=== PATIENT | male | born 1995 | race Caucasian/White ===

== ENCOUNTER 2018-03-04 13:54 | Emergency (ER) | payer OTHER ==
[2018-03-04] MEDS ORDERED: Adacel Vial IM ONE ×2 (14:52→14:56)
[2018-03-04] MEDS ORDERED: BACIGUENT PACKET TP ONE (14:58)
[2018-03-04] MEDS ORDERED: BACIGUENT PACKET ONE (14:58)
--- NOTE | 2018-03-04 14:59 | ERPHSYRPT ---
- History of Present Illness Time Seen by Provider: 03/04/18 14:47 Source: patient, family Exam Limitations: no limitations Patient Subjective Stated Complaint: laceration to bottom right foot Triage Nursing Assessment: to er c/o fall in shower pt states he hit bottom of foot on faucet at time of fall. pt has approx 1 inch laceration noted to bottom of foot with skin flap present. bleeding in minimal at this time Physician History: 23-year-old obese white male arrives with complaint of laceration and pain in the bottom of his right foot symptoms since 9:00 this morning. Patient states he slipped in the shower. Patient's mother states that she tried to clean the area and dress it but he continued to bleed. Patient's complaining of pain on the plantar surface of his right foot. Past medical history includes migraines, asthma, bipolar, schizoaffective disorder. Past surgical history includes cholecystectomy. Method of Injury: other (fell and hit foot on the faucet at home.) Severity of Pain-Max: moderate Severity of Pain-Current: moderate Lower Extremities Pain: foot: right (plantar surface right foot) Modifying Factors: Improves With: nothing Associated Symptoms: other (laceration and pain) Allergies/Adverse Reactions: No Known Drug Allergies Allergy (Unverified 11/15/12 19:51) Home Medications: ARIPiprazole [Aripiprazole] 20 mg PO DAILY 03/04/18 [History] Aspirin EC 325 mg [Ecotrin 325 MG] 325 mg PO DAILY 03/04/18 [History] Buspirone HCl 7.5 mg PO DAILY 03/04/18 [History] Trazodone HCl 50 mg [Desyrel 50 mg] 100 mg PO BID 03/04/18 [History] Hx Tetanus, Diphtheria Vaccination/Date Given: Yes (2009) Hx Influenza Vaccination/Date Given: No Hx Pneumococcal Vaccination/Date Given: No Immunizations Up to Date: Yes - Review of Systems Constitutional: No Fever, No Chills Eyes: No Symptoms Ears, Nose, & Throat: No Symptoms Respiratory: No Cough, No Dyspnea Cardiac: No Chest Pain, No Edema, No Syncope Abdominal/Gastrointestinal: No Abdominal Pain, No Nausea, No Vomiting, No Diarrhea Genitourinary Symptoms: No Dysuria Musculoskeletal: Injury (pain and laceration plantar surface right foot) Skin: Other (2.5 cm flap laceration right foot) Neurological: No Dizziness, No Focal Weakness, No Sensory Changes Psychological: No Symptoms Endocrine: No Symptoms All Other Systems: Reviewed and Negative - Past Medical History Pertinent Past Medical History: Yes Neurological History: Migraines Respiratory History: Asthma Psycho-Social History: Bipolar, Other Other Medical History: schitzoeffective bipolar type - Past Surgical History Gastrointestinal: Cholecystectomy - Social History Smoking Status: Never smoker Exposure to second hand smoke: No Drug Use: none Patient Lives Alone: No Significant Family History: no pertinent family hx - Nursing Vital Signs Nursing Vital Signs: Initial Vital Signs Temperature 98.0 F 03/04/18 14:00 Pulse Rate 122 H 03/04/18 14:00 Respiratory Rate 18 03/04/18 14:00 Blood Pressure 155/95 03/04/18 14:00 O2 Sat by Pulse Oximetry 98 03/04/18 14:00 Pain Scale Pain Intensity 9 - Physical Exam General Appearance: mild distress Eyes, Ears, Nose, Throat Exam: moist mucous membranes Neck Exam: non-tender, supple Cardiovascular/Respiratory Exam: chest non-tender, normal breath sounds, regular rate/rhythm, no respiratory distress Gastrointestinal/Abdominal Exam: non-tender, guarding Back Exam: normal inspection, No vertebral tenderness Hips Exam: bilateral: non-tender, normal inspection, normal range of motion, no evidence of injury Legs Exam: bilateral leg: non-tender, normal inspection, normal range of motion , no evidence of injury Knees Exam: bilateral knee: non-tender, normal inspection, normal range of motion, no evidence of injury Ankle Exam: bilateral ankle: non-tender, normal inspection, normal range of motion, no evidence of injury Foot Exam: right foot: abrasions/lacerations (2.5 cm flap laceration plantar surface right foot midfoot), bone tenderness, left foot: non-tender, normal inspection, no evidence of injury, bilateral foot: normal range of motion Neuro/Tendon Exam: normal sensation, normal motor functions Mental Status Exam: alert, oriented x 3, cooperative Skin Exam: normal color, warm, dry SpO2 Interpretation: normal (98%) SpO2: 98 Oxygen Delivery: Room Air - Course Nursing assessment & vital signs reviewed: Yes Ordered Tests: Active Orders 24 hr Category Date Time Status Crutches STAT Care 03/04/18 15:30 Active Wound Care STAT Care 03/04/18 14:52 Active FOOT (MINIMUM 3 VIEWS) Stat Exams 03/04/18 14:54 Completed Medication Summary Discontinued Medications Generic Name Dose Route Start Last Admin Trade Name Nancy PRN Reason Stop Dose Admin Bacitracin Zinc 0.9 gm 03/04/18 14:58 03/04/18 14:59 Baciguent Packet TP 03/04/18 14:59 0.9 gm STAT ONE Administration Bacitracin Zinc Confirm 03/04/18 14:58 Baciguent Packet Administered 03/04/18 14:59 Dose 1 gm .ROUTE .STK-MED ONE Diphtheria/Tetanus/Acell Pertussis 0.5 ml 03/04/18 14:52 03/04/18 14:59 Adacel Vial IM 03/04/18 14:53 0.5 ml .ONCE ONE Administration Diphtheria/Tetanus/Acell Pertussis Confirm 03/04/18 14:56 Adacel Vial Administered 03/04/18 14:57 Dose 0.5 ml IM .STK-MED ONE - Progress Progress: improved Progress Note: 03/04/18 15:25 This is a 23-year-old white male who arrives with complaint of a laceration to the plantar surface of his foot he has a 3 cm laceration which is a flap of the majority of which is a superficial flap. He does have a total of 2.5 cm laceration it is on the plantar surface of his foot. I do not feel at he will benefit from suturing in this area. Will have nurse clean the area and place surgiceal to the area. And place a dressing. Patient states he has pain when walking when he steps on the area will give patient crutches weightbearing as tolerated for a few days. Patient was offered Tylenol in the emergency room he really doesn't want any X-rays of the right foot are negative other than a heel spur. - Departure Time of Disposition: 15:28 Departure Disposition: Home Clinical Impression: Contusion of right foot Laceration of right foot Qualifiers: Encounter type: initial encounter Qualified Code(s): S91.311A - Laceration without foreign body, right foot, initial encounter Condition: Fair Critical Care Time: No Referrals: LOULOU ROBERSON [Primary Care Provider] - Additional Instructions: Return home. Clean area daily and apply bacitracin beginning tomorrow. Tylenol every 4 hours as needed for pain. Crutches weightbearing as tolerated. Follow-up with your family doctor if signs of infection or problems. Return for acute distress or for severe symptoms.
--- NOTE | 2018-03-04 15:13 | XRAY ---
Indication: Plantar laceration. Comparison: June 19, 2006. 3 nonweightbearing views of the right foot now demonstrates tiny plantar heel spur. No other bony, articular, or soft tissue abnormalities.
[2018-03-04 15:37] VITALS: BP 130/92; PULSE 88; O2SAT 97
== END 2018-03-04 15:43 | disposition home or self-care (01) ==
LOC: ED 13:54
DX: S91.311A Laceration without foreign body, right foot, initial encounter (principal); S90.31XA Contusion of right foot, initial encounter; W18.2XXA Fall in (into) shower or empty bathtub, initial encounter; Y92.002 Bathroom of unspecified non-institutional (private) residence as the place of occurrence of the external cause
CPT/HCPCS: 73630; 90471; 90715; 96372; 99284; A9270-GY

== ENCOUNTER 2018-11-22 08:27 | Emergency (ER) | payer OTHER ==
--- NOTE | 2018-11-22 09:06 | ERPHSYRPT ---
- History of Present Illness Time Seen by Provider: 11/22/18 09:01 Source: patient Exam Limitations: no limitations Patient Subjective Stated Complaint: PT STATES "MY HEAD WAS SPINNING THIS MORNING, I MADE IT DOWN. MOST OF THE STAIRS AND THEN THE NEXT THING I KNEW I WAS AT THE BOTTOM ON THE FLOOR". PT STATES HIS GRANDFATHER DROVE HIM TO HOSPITAL , PT STATES WHEN HE ENTERED BUILDING HIS HEAD STARTED TO SPIN AGAIN. PT STATES "I DON'T KNOW WHAT HAPPENED I JUST WOKE UP ON THE FLOOR AGAIN". UNKNOWN LENGTH OF DOWN TIME AT HOME. PT DENIES PAIN, C/O HEAD SPINNING. Triage Nursing Assessment: pink/warm/dry, resp easy, pt wheeled to room after being helped up off lobby floor by staff. a&o to person, place and situation at this time. no weakness noted or any obvious injuries. pt appears tired. Physician History: The patient is a 23-year-old morbidly obese male brought in by family complaining that prior to arrival as he was walking down the stairs, he had a sudden onset of the room spinning. The next thing he can remember is that he was lying flat on the stairs. He denies any pain. He denies chest pain. Denies shortness of breath. He denies headache. He is eating and drinking normally for the past few days. At times he has burning sensation when he urinates. His past medical history is significant for morbid obesity, depression, anxiety , GERD, and neuropathy. Witnessed: unwitnessed Prior Episodes: single episode today Timing/Duration: today, resolved prior to arrival, sudden Precipitating Factors: other (vertigo) Context: activity Loss of Consciousness: brief (seconds) Charcter of event(s): collapsed Allergies/Adverse Reactions: No Known Drug Allergies Allergy (Unverified 11/15/12 19:51) Home Medications: Aspirin EC 325 mg [Ecotrin 325 MG] 325 mg PO DAILY 03/04/18 [History] Buspirone HCl [Buspar] 15 mg PO TID 11/22/18 [History] Cyclobenzaprine HCl 10 mg [Cyclobenzaprine 10 MG] 10 mg PO TID 11/22/18 [ History] Gabapentin 800 mg PO TID 11/22/18 [History] Multivit-Min/FA/Lycopen/Lutein [Centrum Silver Men Tablet] 1 tab PO DAILY [History] [place]-3S/Dha/Epa/Fish Oil [[place] Power 1,050 mg Softgel] 1 cap PO DAILY [History] Omeprazole 40 mg PO DAILY 11/22/18 [History] PARoxetine HCl [Paroxetine HCl] 40 mg PO DAILY 11/22/18 [History] Trazodone HCl 300 mg PO HS 11/22/18 [History] Hx Tetanus, Diphtheria Vaccination/Date Given: No Hx Influenza Vaccination/Date Given: No Hx Pneumococcal Vaccination/Date Given: No Immunizations Up to Date: Yes - Past Medical History Pertinent Past Medical History: Yes Neurological History: Migraines ENT History: No Pertinent History Cardiac History: No Pertinent History Respiratory History: Asthma Endocrine Medical History: No Pertinent History Musculoskeletal History: No Pertinent History GI Medical History: No Pertinent History History: No Pertinent History Psycho-Social History: No Pertinent History Male Reproductive Disorders: No Pertinent History Other Medical History: occular migrains - Past Surgical History Past Surgical History: Yes Gastrointestinal: Cholecystectomy Other Surgical History: unsure what surgery was for - Social History Smoking Status: Never smoker Exposure to second hand smoke: No Drug Use: none Patient Lives Alone: Yes Significant Family History: no pertinent family hx - Review of Systems Constitutional: No Fever, No Chills Eyes: No Symptoms Ears, Nose, & Throat: No Symptoms Respiratory: No Cough, No Dyspnea Cardiac: No Chest Pain, No Edema, No Syncope Abdominal/Gastrointestinal: Nausea Genitourinary Symptoms: No Dysuria Musculoskeletal: No Back Pain, No Neck Pain Skin: No Rash Neurological: Dizziness Psychological: Anxiety, Depression Endocrine: No Symptoms Hematologic/Lymphatic: No Symptoms Immunological/Allergic: No Symptoms All Other Systems: Reviewed and Negative Physical Exam - Nursing Vital Signs Nursing Vital Signs: Initial Vital Signs Temperature 96.9 F 11/22/18 08:29 Pulse Rate 110 H 11/22/18 08:29 Respiratory Rate 16 11/22/18 08:29 Blood Pressure 128/93 11/22/18 08:29 O2 Sat by Pulse Oximetry 95 11/22/18 08:29 Pain Scale Pain Intensity 0 - Josie Coma Scale Best Eye Response ([place]): (4) open spontaneously Best Verbal Response ([place]): (5) oriented Best Motor Response ([place]): (6) obeys commands [place] Total: 15 - Physical Exam General Appearance: mild distress, obese Eye Exam: bilateral eye: normal inspection, PERRL, EOMI, other (no nystsagmus ) Ears, Nose, Throat Exam: normal ENT inspection, pharynx normal, moist mucous membranes Neck Exam: normal inspection, non-tender, supple, full range of motion Respiratory: normal breath sounds, lungs clear, No chest tenderness, No respiratory distress Cardiovascular: normal heart sounds, tachycardia Gastrointestinal: soft, No tenderness, No distention, No mass Rectal Exam: not done Back Exam: normal inspection, normal range of motion, No CVA tenderness, No vertebral tenderness Extremity Exam: normal inspection, normal range of motion, pelvis stable, No tenderness 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 Exam: normal hearing, normal speech, PERRL, No facial droop Coordination/Gait: normal finger to nose Motor/Sensory: no motor deficit, no sensory deficit, no pronator drift Skin Exam: normal color, warm, dry, No rash SpO2 Interpretation: normal SpO2: 95 O2 Delivery: Room Air - Course EKG Interpreted by Me: RATE, Sinus Tach, NORMAL AXIS, NORMAL INTERVALS, NORMAL QRS, NORMAL ST-T - Radiology Exams Chest X-ray Interpretation: Interpreted by me, Negative (neg 2V chest, comp 2V chesrt 10/10/17.) - CT Exams Head CT Interpretation: Negative, Tele-radiologist Report (per Dr Garcia), No/ Intracranial Hemorrhag Chest CT Interpretation: Discussed w/radiologist (discussed findings with Dr Garcia), Other (Findings highly suggestive for acute pulmonary embolism in segnebtak branches of LLL. Recommends VQ scan.) Ordered Tests: Active Orders 24 hr Category Date Time Status Agriculture Laboratory Technician STAT Care 11/22/18 09:08 Active Clean Catch Urine Specimen STAT Care 11/22/18 09:07 Active EKG-ER Only STAT Care 11/22/18 09:07 Active IV Insertion STAT Care 11/22/18 09:07 Active Orthostatic Vital Signs STAT Care 11/22/18 09:07 Active CHEST 2 VIEWS (PA AND LAT) Stat Exams 11/22/18 09:09 Taken CHEST WITH CONTRAST [CT] Stat Exams 11/22/18 10:11 Taken HEAD WITHOUT CONTRAST [CT] Stat Exams 11/22/18 09:08 Taken CBC W DIFF Stat Lab 11/22/18 09:07 Completed CMP Stat Lab 11/22/18 09:07 Completed D-DIMER QUANTITATION Stat Lab 11/22/18 09:07 Completed ETHYL ALCOHOL Stat Lab 11/22/18 09:07 Completed PROTIME WITH INR Stat Lab 11/22/18 09:07 Completed TROPONIN Q3H Lab 11/22/18 09:15 Completed TROPONIN Q3H Lab 11/22/18 12:16 Completed TROPONIN Q3H Lab 11/22/18 15:15 Ordered TROPONIN Q3H Lab 11/22/18 18:15 Ordered TROPONIN Q3H Lab 11/22/18 21:15 Ordered UA W/RFX UR CULTURE Stat Lab 11/22/18 10:25 Completed Urine Triage Profile Stat Lab 11/22/18 10:25 Completed Medication Summary Discontinued Medications Generic Name Dose Route Start Last Admin Trade Name Freq PRN Reason Stop Dose Admin Sodium Chloride 1,000 mls @ 999 mls/hr 11/22/18 09:07 11/22/18 09:17 Sodium Chloride 0.9% 1000 Ml IV 11/22/18 10:07 999 mls/hr .Q1H1M STA Administration Sodium Chloride Confirm 11/22/18 09:14 Sodium Chloride 0.9% 1000 Ml Administered 11/22/18 09:15 Dose 1,000 mls @ ud .ROUTE .STK-MED ONE Ondansetron HCl 4 mg 11/22/18 09:09 11/22/18 09:18 Zofran 4 Mg/2 Ml Vial IV 11/22/18 09:10 4 mg STAT ONE Administration Ondansetron HCl Confirm 11/22/18 09:14 Zofran 4 Mg/2 Ml Vial Administered 11/22/18 09:15 Dose 4 mg .ROUTE .STK-MED ONE Lab/Rad Data: Laboratory Result Diagrams 11/22/18 09:07 11/22/18 09:07 Laboratory Results 11/22/18 11/22/18 11/22/18 Range/Units 12:16 10:25 10:25 WBC (4.0-10.5) K/mm3 RBC (4.1-5.6) M/mm3 Hgb (12.5-18.0) gm/dl Hct (42-50) % MCV (78-100) fl MCH (26-32) pg MCHC (32-36) g/dl RDW (11.5-14.0) % Plt Count (150-450) K/mm3 MPV (6-9.5) fl Gran % (36.0-66.0) % Eos # (Auto) (0-0.5) Absolute Lymphs (auto) (1.0-4.6) Absolute Monos (auto) (0.0-1.3) Lymphocytes % (24.0-44.0) % Monocytes % (0.0-12.0) % Eosinophils % (0.00-5.0) % Basophils % (0.0-0.4) % Absolute Granulocytes (1.4-6.9) Basophils # (0-0.4) PT (8.83-12.87) SECONDS INR (0.8-3.0) D-Dimer (215-500) ng/mL Sodium (137-145) mmol/L Potassium (3.5-5.1) mmol/L Chloride (98-107) mmol/L Carbon Dioxide (22-30) mmol/L Anion Gap (5-15) MEQ/L BUN (9-20) mg/dL Creatinine (0.66-1.25) mg/dL Estimated GFR ML/MIN Glucose (74-106) mg/dL Calcium (8.4-10.2) mg/dL Total Bilirubin (0.2-1.3) mg/dL AST (17-59) U/L ALT (0-50) U/L Alkaline Phosphatase (38-126) U/L Troponin I < 0.012 (0.000-0.034) ng/mL Serum Total Protein (6.3-8.2) g/dL Albumin (3.5-5.0) g/dL Urine Color YELLOW (YELLOW) Urine Appearance SLIGHTLY CLOUDY (CLEAR) Urine pH 5.0 (5-6) Ur Specific [place] 1.031 (1.005-1.025) Urine Protein NEGATIVE (Negative) Urine Ketones TRACE (NEGATIVE) Urine Blood NEGATIVE (0-5) Natanael/ul Urine Nitrite NEGATIVE (NEGATIVE) Urine Bilirubin NEGATIVE (NEGATIVE) Urine Urobilinogen 2 (0-1) mg/dL Ur Leukocyte Esterase NEGATIVE (NEGATIVE) Urine WBC (Auto) 3-5 (0-5) /HPF Urine RBC (Auto) NONE SEEN (0-2) /HPF U Hyaline Cast (Auto) 3-5 (0-2) /LPF U Epithel Cells (Auto) NONE (FEW) /HPF Urine Bacteria (Auto) RARE (NEGATIVE) /HPF Urine Mucus (Auto) MODERATE (NEGATIVE) /HPF Urine Culture Reflexed NO (NO) Urine Glucose NEGATIVE (NEGATIVE) mg/dL Urine Opiates Level NEGATIVE (NEGATIVE) Ur Methadone NEGATIVE (NEGATIVE) Urine Barbiturates NEGATIVE (NEGATIVE) Ur Phencyclidine (PCP) NEGATIVE (NEGATIVE) Urine Amphetamine NEGATIVE (NEGATIVE) U Benzodiazepine Level NEGATIVE (NEGATIVE) Urine Cocaine NEGATIVE (NEGATIVE) Urine Marijuana (THC) NEGATIVE (NEGATIVE) Ethyl Alcohol (0-10) mg/dL 11/22/18 11/22/18 11/22/18 Range/Units 09:15 09:07 09:07 WBC (4.0-10.5) K/mm3 RBC (4.1-5.6) M/mm3 Hgb (12.5-18.0) gm/dl Hct (42-50) % MCV (78-100) fl MCH (26-32) pg MCHC (32-36) g/dl RDW (11.5-14.0) % Plt Count (150-450) K/mm3 MPV (6-9.5) fl Gran % (36.0-66.0) % Eos # (Auto) (0-0.5) Absolute Lymphs (auto) (1.0-4.6) Absolute Monos (auto) (0.0-1.3) Lymphocytes % (24.0-44.0) % Monocytes % (0.0-12.0) % Eosinophils % (0.00-5.0) % Basophils % (0.0-0.4) % Absolute Granulocytes (1.4-6.9) Basophils # (0-0.4) PT 11.5 (8.83-12.87) SECONDS INR 0.99 (0.8-3.0) D-Dimer 789 H* (215-500) ng/mL Sodium 139 (137-145) mmol/L Potassium 4.5 (3.5-5.1) mmol/L Chloride 104 (98-107) mmol/L Carbon Dioxide 22 (22-30) mmol/L Anion Gap 16.8 H (5-15) MEQ/L BUN 14 (9-20) mg/dL Creatinine 1.08 (0.66-1.25) mg/dL Estimated GFR > 60.0 ML/MIN Glucose 107 H (74-106) mg/dL Calcium 9.9 (8.4-10.2) mg/dL Total Bilirubin 0.50 (0.2-1.3) mg/dL AST 40 (17-59) U/L ALT 52 H (0-50) U/L Alkaline Phosphatase 91 (38-126) U/L Troponin I < 0.012 (0.000-0.034) ng/mL Serum Total Protein 7.5 (6.3-8.2) g/dL Albumin 4.4 (3.5-5.0) g/dL Urine Color (YELLOW) Urine Appearance (CLEAR) Urine pH (5-6) Ur Specific [place] (1.005-1.025) Urine Protein (Negative) Urine Ketones (NEGATIVE) Urine Blood (0-5) Natanael/ul Urine Nitrite (NEGATIVE) Urine Bilirubin (NEGATIVE) Urine Urobilinogen (0-1) mg/dL Ur Leukocyte Esterase (NEGATIVE) Urine WBC (Auto) (0-5) /HPF Urine RBC (Auto) (0-2) /HPF U Hyaline Cast (Auto) (0-2) /LPF U Epithel Cells (Auto) (FEW) /HPF Urine Bacteria (Auto) (NEGATIVE) /HPF Urine Mucus (Auto) (NEGATIVE) /HPF Urine Culture Reflexed (NO) Urine Glucose (NEGATIVE) mg/dL Urine Opiates Level (NEGATIVE) Ur Methadone (NEGATIVE) Urine Barbiturates (NEGATIVE) Ur Phencyclidine (PCP) (NEGATIVE) Urine Amphetamine (NEGATIVE) U Benzodiazepine Level (NEGATIVE) Urine Cocaine (NEGATIVE) Urine Marijuana (THC) (NEGATIVE) Ethyl Alcohol < 10 (0-10) mg/dL 11/22/18 Range/Units 09:07 WBC 12.8 H (4.0-10.5) K/mm3 RBC 5.69 H (4.1-5.6) M/mm3 Hgb 16.4 (12.5-18.0) gm/dl Hct 48.8 (42-50) % MCV 85.8 (78-100) fl MCH 28.8 (26-32) pg MCHC 33.6 (32-36) g/dl RDW 13.4 (11.5-14.0) % Plt Count 322 (150-450) K/mm3 MPV 11.3 H (6-9.5) fl Gran % 64.7 (36.0-66.0) % Eos # (Auto) 0.26 (0-0.5) Absolute Lymphs (auto) 3.07 (1.0-4.6) Absolute Monos (auto) 1.16 (0.0-1.3) Lymphocytes % 24.0 (24.0-44.0) % Monocytes % 9.1 (0.0-12.0) % Eosinophils % 2.0 (0.00-5.0) % Basophils % 0.2 (0.0-0.4) % Absolute Granulocytes 8.27 H (1.4-6.9) Basophils # 0.02 (0-0.4) PT (8.83-12.87) SECONDS INR (0.8-3.0) D-Dimer (215-500) ng/mL Sodium (137-145) mmol/L Potassium (3.5-5.1) mmol/L Chloride (98-107) mmol/L Carbon Dioxide (22-30) mmol/L Anion Gap (5-15) MEQ/L BUN (9-20) mg/dL Creatinine (0.66-1.25) mg/dL Estimated GFR ML/MIN Glucose (74-106) mg/dL Calcium (8.4-10.2) mg/dL Total Bilirubin (0.2-1.3) mg/dL AST (17-59) U/L ALT (0-50) U/L Alkaline Phosphatase (38-126) U/L Troponin I (0.000-0.034) ng/mL Serum Total Protein (6.3-8.2) g/dL Albumin (3.5-5.0) g/dL Urine Color (YELLOW) Urine Appearance (CLEAR) Urine pH (5-6) Ur Specific [place] (1.005-1.025) Urine Protein (Negative) Urine Ketones (NEGATIVE) Urine Blood (0-5) Natanael/ul Urine Nitrite (NEGATIVE) Urine Bilirubin (NEGATIVE) Urine Urobilinogen (0-1) mg/dL Ur Leukocyte Esterase (NEGATIVE) Urine WBC (Auto) (0-5) /HPF Urine RBC (Auto) (0-2) /HPF U Hyaline Cast (Auto) (0-2) /LPF U Epithel Cells (Auto) (FEW) /HPF Urine Bacteria (Auto) (NEGATIVE) /HPF Urine Mucus (Auto) (NEGATIVE) /HPF Urine Culture Reflexed (NO) Urine Glucose (NEGATIVE) mg/dL Urine Opiates Level (NEGATIVE) Ur Methadone (NEGATIVE) Urine Barbiturates (NEGATIVE) Ur Phencyclidine (PCP) (NEGATIVE) Urine Amphetamine (NEGATIVE) U Benzodiazepine Level (NEGATIVE) Urine Cocaine (NEGATIVE) Urine Marijuana (THC) (NEGATIVE) Ethyl Alcohol (0-10) mg/dL - Progress Progress Note: 11/22/18 10:52 Orthostats: lying pulse was 98 and BP was 144/100 standing pulse was 124 and BP was 119/70. 11/22/18 13:[address] Phan who recommends transfer to [facility]. Mom and pt agree. 11/22/18 13:59 pt discussed and accepted by Dr Cm at [facility]. Discussed with .: Emilie Counseled pt/family regarding: lab results, diagnosis, rad results - Departure Time of Disposition: 13:21 Departure Disposition: Transfer (transfer to [facility] ER per Dr Cm) Clinical Impression: Syncope and collapse, Elevated d-dimer Condition: Stable Critical Care Time: No Referrals: LOULOU ROBERSON [Primary Care Provider] -
[2018-11-22] MEDS ORDERED: Sodium Chloride 0.9% 1000 ML 1,000 ML IV STA (09:07)
[2018-11-22] MEDS ORDERED: Zofran 4 MG/2 ML VIAL IV ONE (09:09)
[2018-11-22] MEDS ORDERED: Zofran 4 MG/2 ML VIAL ONE (09:14)
[2018-11-22] MEDS ORDERED: Sodium Chloride 0.9% 1000 ML 1,000 ML ONE (09:14)
[2018-11-22 09:16] LABS: BASOPHIL % 0.2 % (0.0-0.4); Basophil (Absolute #) 0.02 (0-0.4); Eosinophil (Absolute #) 0.26 (0-0.5); Granulocyte Absolute (ANC) 8.27 (1.4-6.9); Granulocytes % 64.7 % (36.0-66.0); Hematocrit 48.8 % (42-50); Hemoglobin 16.4 gm/dl (12.5-18.0); Lymphocyte (Absolute #) 3.07 (1.0-4.6); Mean Cell Volume 85.8 fl (78-100); Mean Corpuscular Hemoglobin 28.8 pg (26-32); Mean Corpuscular Hgb Concent. 33.6 g/dl (32-36); Mean Platelet Volume 11.3 fl (6-9.5); Monocyte (Absolute #) 1.16 (0.0-1.3); Monocytes % 9.1 % (0.0-12.0); Platelet Count 322 K/mm3 (150-450); Red Blood Count 5.69 M/mm3 (4.1-5.6); Red Cell Distribution Width 13.4 % (11.5-14.0); White Blood Count 12.8 K/mm3 (4.0-10.5)
[2018-11-22 09:34] LABS: INR 0.99 (0.8-3.0); PROTIME 11.5 SECONDS (8.83-12.87)
[2018-11-22 09:36] LABS: ALBUMIN 4.4 g/dL (3.5-5.0); ALKALINE PHOSPHATASE 91 U/L (38-126); ANION GAP 16.8 MEQ/L (5-15); BLOOD UREA NITROGEN 14 mg/dL (9-20); CHLORIDE 104 mmol/L (98-107); Calcium 9.9 mg/dL (8.4-10.2); Carbon Dioxide 22 mmol/L (22-30); Creatinine 1 1.08 mg/dL (0.66-1.25); ETHYL ALCOHOL < 10 mg/dL (0-10); Glucose 107 mg/dL (74-106); Potassium 4.5 mmol/L (3.5-5.1); SGOT/AST 40 U/L (17-59); SGPT/ALT 52 U/L (0-50); SODIUM 139 mmol/L (137-145); Total Protein 7.5 g/dL (6.3-8.2)
[2018-11-22 10:50] LABS: Amphetamine,Urine NEGATIVE (NEGATIVE); Barbiturate,Urine NEGATIVE (NEGATIVE); Benzodiazepine,Urine NEGATIVE (NEGATIVE); Cocaine,Urine NEGATIVE (NEGATIVE); Methadone,Urine NEGATIVE (NEGATIVE); Opiate,Urine NEGATIVE (NEGATIVE); PCP,Urine NEGATIVE (NEGATIVE); THC,Urine NEGATIVE (NEGATIVE)
[2018-11-22 11:10] LABS: Appearance SLIGHTLY CLOUDY (CLEAR); Bacteria RARE /HPF (NEGATIVE); Bilirubin NEGATIVE (NEGATIVE); Blood NEGATIVE Ery/ul (0-5); Glucose NEGATIVE (NEGATIVE); Ketones TRACE (NEGATIVE); Leukocyte Esterase NEGATIVE (NEGATIVE); Mucus MODERATE /HPF (NEGATIVE); Nitrite NEGATIVE (NEGATIVE); Protein,Urine Dip NEGATIVE (Negative); Specific Gravity 1.031 (1.005-1.025); Urobilinogen 2 mg/dL (0-1)
[2018-11-22 11:11] LABS: RBC NONE SEEN /HPF (0-2)
[2018-11-22] MEDS ORDERED: ENOXAPARIN SODIUM SQ STA (13:45)
[2018-11-22] MEDS ORDERED: ENOXAPARIN SODIUM SQ ONE ×2 (14:18→14:21)
[2018-11-22 15:10] VITALS: O2SAT 94
[2018-11-22 15:45] VITALS: BP 119/74; PULSE 86
--- NOTE | 2018-11-23 00:21 | XRAY ---
Indication: Syncope. Comparison: October 10, 2017. PA/lateral chest again demonstrates normal heart and lungs. Bony thorax intact. No new/acute findings.
--- NOTE | 2018-11-23 00:21 | XRAY ---
Indication: Elevated d-dimer. Multiple contiguous axial images obtained through the chest using 100 cc Isovue 370 contrast and PE protocol. Comparison: None There is satisfactory opacification of the pulmonary arteries. However respiration artifact limits evaluation of the lobar and segmental branches. Query left lower lobe segmental pulmonary emboli versus respiration artifact. No central pulmonary embolus. Heart is not enlarged. Aorta is normal in course and caliber. No pathologic mediastinal/hilar lymphadenopathy. Lungs are inflated and grossly clear. Bony thorax intact. Limited upper abdomen demonstrates mild diffuse fatty liver, cholecystectomy, and 15 cm splenomegaly. Impression: 1. Pulmonary embolus evaluation limited by respiration artifact. Query left lower lobe segmental pulmonary emboli versus respiration artifact. 2. Incidental fatty liver and splenomegaly. Comment: Preliminary interpretation was made by [facility]. No critical discrepancy. CTDI 41.26
--- NOTE | 2018-11-23 00:24 | XRAY ---
Indication: Syncope. Multiple contiguous axial images obtained through the head without contrast. Comparison: None Normal appearing brain parenchyma, ventricles, and bony calvarium. Visualized paranasal sinuses and mastoid air cells are clear. Impression: Normal CT head without contrast exam. Comment: Preliminary interpretation was made by [facility]. No discrepancy. CTDI 66.37
== END 2018-11-22 15:38 | disposition short-term general hospital (02) ==
LOC: ED 08:27
DX: R55 Syncope and collapse (principal); R79.89 Other specified abnormal findings of blood chemistry; F41.8 Other specified anxiety disorders; K21.9 Gastro-esophageal reflux disease without esophagitis; G62.9 Polyneuropathy, unspecified; J45.909 Unspecified asthma, uncomplicated
CPT/HCPCS: 36000; 36415; 70450; 71046; 71260; 80053; 80307; 81001; 84484; 85025; 85379; 85610; 93005; 93041; 96360; 96372; 96374; 99285; G0480; J1650; J2405

== ENCOUNTER 2018-11-27 11:35 | Emergency (ER) | payer OTHER ==
--- NOTE | 2018-11-27 11:39 | ERPHSYRPT ---
- History of Present Illness Time Seen by Provider: 11/27/18 11:38 Historian: patient Exam Limitations: no limitations Physician History: 23 y/o morbidly obese white male presents with cp that began at 0230 this am. he has had an associated cough as well. pt seen here for syncope on 11/22/18. work up revealed at that time an elevated d dimer and a ct chest performed here and was inconclusive with a suspicious finding left lower lobe. he was transferred to [facility]. he underwent a vq scan which read low probability and pt sent home. pt did not have cp, soa or cough at last ED visit. pt has no leg pain. pt is not soa. cp is nonradiating and is substernal. Timing/Duration: today Activities at Onset: none Quality: sharpness Location: substernal Chest Pain Radiation: no radiation Severity of Pain-Max: mild Severity of Pain-Current: mild Modifying Factors: Improves With: coughing Associated Symptoms: cough, No nausea, No vomiting, No shortness of breath, No hurts to breathe, No syncope, No headache Prior Chest Pain/Cardiac Workup: recently seen/treated Nitro Today/Relief: no nitro taken today Aspirin Treatment Today: 81 mg x 4, provided by ED Allergies/Adverse Reactions: No Known Drug Allergies Allergy (Verified 11/27/18 11:48) Home Medications: Aspirin EC 325 mg [Ecotrin 325 MG] 325 mg PO DAILY 03/04/18 [History] Buspirone HCl [Buspar] 15 mg PO TID 11/22/18 [History] Cyclobenzaprine HCl 10 mg [Cyclobenzaprine 10 MG] 10 mg PO TID 11/22/18 [ History] Gabapentin 800 mg PO TID 11/22/18 [History] Multivit-Min/FA/Lycopen/Lutein [Centrum Silver Men Tablet] 1 tab PO DAILY [History] Elsah-3S/Dha/Epa/Fish Oil [Elsah Power 1,050 mg Softgel] 1 cap PO DAILY [History] Omeprazole 40 mg PO DAILY 11/22/18 [History] PARoxetine HCl [Paroxetine HCl] 40 mg PO DAILY 11/22/18 [History] Trazodone HCl 300 mg PO HS 11/22/18 [History] Hx Tetanus, Diphtheria Vaccination/Date Given: No Hx Influenza Vaccination/Date Given: No Hx Pneumococcal Vaccination/Date Given: No - Review of Systems Constitutional: No Symptoms Eyes: No Symptoms Ears, Nose, & Throat: No Symptoms Respiratory: Cough, No Dyspnea, No Stridor, No Wheezing Cardiac: Chest Pain, No Palpitations, No Syncope Abdominal/Gastrointestinal: No Symptoms, No Abdominal Pain, No Nausea, No Vomiting, No Diarrhea Genitourinary Symptoms: No Symptoms, No Dysuria, No Frequency, No Hematuria Musculoskeletal: No Symptoms Skin: No Symptoms Neurological: No Symptoms, No Dizziness, No Headache Psychological: No Symptoms Endocrine: No Symptoms Hematologic/Lymphatic: No Symptoms Immunological/Allergic: No Symptoms All Other Systems: Reviewed and Negative - Past Medical History Pertinent Past Medical History: Yes Neurological History: Migraines ENT History: No Pertinent History Cardiac History: No Pertinent History Respiratory History: Asthma Endocrine Medical History: No Pertinent History Musculoskeletal History: No Pertinent History GI Medical History: No Pertinent History History: No Pertinent History Psycho-Social History: No Pertinent History Male Reproductive Disorders: No Pertinent History Other Medical History: occular migrains - Past Surgical History Past Surgical History: Yes Gastrointestinal: Cholecystectomy Other Surgical History: unsure what surgery was for - Social History Smoking Status: Never smoker Exposure to second hand smoke: No Drug Use: none Patient Lives Alone: Yes Significant Family History: no pertinent family hx - Nursing Vital Signs Nursing Vital Signs: Initial Vital Signs Temperature 97.7 F 11/27/18 11:36 Pulse Rate 90 11/27/18 11:36 Respiratory Rate 16 11/27/18 11:36 Blood Pressure 114/84 11/27/18 11:36 O2 Sat by Pulse Oximetry 95 11/27/18 11:36 Pain Scale Pain Intensity 8 - Physical Exam General Appearance: no apparent distress, alert, anxiety Eye Exam: PERRL/EOMI Ears, Nose, Throat Exam: normal ENT inspection, moist mucous membranes Neck Exam: normal inspection, non-tender, supple, full range of motion Respiratory Exam: normal breath sounds, chest tenderness (mild), lungs clear, airway intact, No respiratory distress, No accessory muscle use, No rhonchi, No wheezing, No stridor Cardiovascular Exam: regular rate/rhythm, normal heart sounds, normal peripheral pulses Gastrointestinal/Abdomen Exam: soft, normal bowel sounds, No tenderness, No guarding Rectal Exam: not done Back Exam: normal inspection, normal range of motion, No CVA tenderness, No vertebral tenderness Extremity Exam: normal inspection, normal range of motion, pelvis stable Neurologic Exam: alert, oriented x 3, cooperative, 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 Apprentice STAT Care 11/27/18 11:53 Active EKG-ER Only STAT Care 11/27/18 11:53 Active IV Insertion STAT Care 11/27/18 11:53 Active Pulse Oximetry (ED) STAT Care 11/27/18 11:53 Active Re-Check Vital Signs STAT Care 11/27/18 11:53 Active CBC W DIFF Stat Lab 11/27/18 11:53 Completed CMP Stat Lab 11/27/18 12:09 Completed D-DIMER QUANTITATION Stat Lab 11/27/18 12:09 Completed NT PRO BNP Stat Lab 11/27/18 12:09 Completed TROPONIN Q3H Lab 11/27/18 12:09 Completed TROPONIN Q3H Lab 11/27/18 15:00 Ordered TROPONIN Q3H Lab 11/27/18 18:00 Ordered TROPONIN Q3H Lab 11/27/18 21:00 Ordered TROPONIN Q3H Lab 11/28/18 00:00 Ordered Medication Summary Discontinued Medications Generic Name Dose Route Start Last Admin Trade Name Freq PRN Reason Stop Dose Admin Aspirin 324 mg 11/27/18 12:43 Baby Aspirin 81 Mg Chew PO 11/27/18 12:44 STAT ONE Lab/Rad Data: Laboratory Result Diagrams 11/27/18 11:53 11/27/18 12:09 Laboratory Results 11/27/18 11/27/18 11/27/18 Range/Units 12:09 12:09 12:09 WBC (4.0-10.5) K/mm3 RBC (4.1-5.6) M/mm3 Hgb (12.5-18.0) gm/dl Hct (42-50) % MCV (78-100) fl MCH (26-32) pg MCHC (32-36) g/dl RDW (11.5-14.0) % Plt Count (150-450) K/mm3 MPV (6-9.5) fl Gran % (36.0-66.0) % Eos # (Auto) (0-0.5) Absolute Lymphs (auto) (1.0-4.6) Absolute Monos (auto) (0.0-1.3) Lymphocytes % (24.0-44.0) % Monocytes % (0.0-12.0) % Eosinophils % (0.00-5.0) % Basophils % (0.0-0.4) % Absolute Granulocytes (1.4-6.9) Basophils # (0-0.4) D-Dimer 599 H* (215-500) ng/mL Sodium 138 (137-145) mmol/L Potassium 4.3 (3.5-5.1) mmol/L Chloride 104 (98-107) mmol/L Carbon Dioxide 25 (22-30) mmol/L Anion Gap 13.6 (5-15) MEQ/L BUN 16 (9-20) mg/dL Creatinine 0.81 (0.66-1.25) mg/dL Estimated GFR > 60.0 ML/MIN Glucose 101 (74-106) mg/dL Calcium 9.2 (8.4-10.2) mg/dL Total Bilirubin 0.40 (0.2-1.3) mg/dL AST 32 (17-59) U/L ALT 42 (0-50) U/L Alkaline Phosphatase 81 (38-126) U/L Troponin I < 0.012 (0.000-0.034) ng/mL NT-Pro-B Natriuret Pep 26.9 (0-450) pg/mL Serum Total Protein 7.2 (6.3-8.2) g/dL Albumin 4.1 (3.5-5.0) g/dL 11/27/18 Range/Units 11:53 WBC 7.7 (4.0-10.5) K/mm3 RBC 5.26 (4.1-5.6) M/mm3 Hgb 15.1 (12.5-18.0) gm/dl Hct 45.4 (42-50) % MCV 86.3 (78-100) fl MCH 28.7 (26-32) pg MCHC 33.3 (32-36) g/dl RDW 13.3 (11.5-14.0) % Plt Count 264 (150-450) K/mm3 MPV 10.8 H (6-9.5) fl Gran % 51.8 (36.0-66.0) % Eos # (Auto) 0.42 (0-0.5) Absolute Lymphs (auto) 2.65 (1.0-4.6) Absolute Monos (auto) 0.61 (0.0-1.3) Lymphocytes % 34.4 (24.0-44.0) % Monocytes % 7.9 (0.0-12.0) % Eosinophils % 5.4 H (0.00-5.0) % Basophils % 0.5 (0.0-0.4) % Absolute Granulocytes 3.99 (1.4-6.9) Basophils # 0.04 (0-0.4) D-Dimer (215-500) ng/mL Sodium (137-145) mmol/L Potassium (3.5-5.1) mmol/L Chloride (98-107) mmol/L Carbon Dioxide (22-30) mmol/L Anion Gap (5-15) MEQ/L BUN (9-20) mg/dL Creatinine (0.66-1.25) mg/dL Estimated GFR ML/MIN Glucose (74-106) mg/dL Calcium (8.4-10.2) mg/dL Total Bilirubin (0.2-1.3) mg/dL AST (17-59) U/L ALT (0-50) U/L Alkaline Phosphatase (38-126) U/L Troponin I (0.000-0.034) ng/mL NT-Pro-B Natriuret Pep (0-450) pg/mL Serum Total Protein (6.3-8.2) g/dL Albumin (3.5-5.0) g/dL - Progress Progress: improved Air Movement: good Progress Note: 11/27/18 12:49 pt resting comfortably. i have opted not to obtain ct scan on pts chest since the d dimer only mildly elevated and pt just completed a negative work up for pulmonary embolism. pt and father are aware and agree not necessary at this time Blood Culture(s) Obtained: No Antibiotics given: No Counseled pt/family regarding: lab results, diagnosis, need for follow-up, rad results - Departure Time of Disposition: 12:53 Departure Disposition: Home Clinical Impression: Chest pain Condition: Stable Critical Care Time: No Referrals: LOULOU ROBERSON [Primary Care Provider] - Additional Instructions: take your medications as prescribed. follow up with primary doctor TODAY to arrange for follow up appointment
[2018-11-27 12:14] LABS: BASOPHIL % 0.5 % (0.0-0.4); Basophil (Absolute #) 0.04 (0-0.4); Eosinophil % 5.4 % (0.00-5.0); Eosinophil (Absolute #) 0.42 (0-0.5); Granulocyte Absolute (ANC) 3.99 (1.4-6.9); Granulocytes % 51.8 % (36.0-66.0); Hematocrit 45.4 % (42-50); Hemoglobin 15.1 gm/dl (12.5-18.0); Lymphocyte (Absolute #) 2.65 (1.0-4.6); Lymphocytes % 34.4 % (24.0-44.0); Mean Cell Volume 86.3 fl (78-100); Mean Corpuscular Hemoglobin 28.7 pg (26-32); Mean Corpuscular Hgb Concent. 33.3 g/dl (32-36); Mean Platelet Volume 10.8 fl (6-9.5); Monocyte (Absolute #) 0.61 (0.0-1.3); Monocytes % 7.9 % (0.0-12.0); Platelet Count 264 K/mm3 (150-450); Red Blood Count 5.26 M/mm3 (4.1-5.6); Red Cell Distribution Width 13.3 % (11.5-14.0); White Blood Count 7.7 K/mm3 (4.0-10.5)
[2018-11-27 12:30] LABS: ALBUMIN 4.1 g/dL (3.5-5.0); ALKALINE PHOSPHATASE 81 U/L (38-126); ANION GAP 13.6 MEQ/L (5-15); BLOOD UREA NITROGEN 16 mg/dL (9-20); CHLORIDE 104 mmol/L (98-107); Calcium 9.2 mg/dL (8.4-10.2); Carbon Dioxide 25 mmol/L (22-30); Creatinine 1 0.81 mg/dL (0.66-1.25); Glucose 101 mg/dL (74-106); NT PRO BNP 26.9 pg/mL (0-450); Potassium 4.3 mmol/L (3.5-5.1); SGOT/AST 32 U/L (17-59); SGPT/ALT 42 U/L (0-50); SODIUM 138 mmol/L (137-145); Total Protein 7.2 g/dL (6.3-8.2)
[2018-11-27] MEDS ORDERED: BABY ASPIRIN 81 MG CHEW PO ONE (12:43)
[2018-11-27] MEDS ORDERED: BABY ASPIRIN 81 MG CHEW ONE (12:59)
[2018-11-27 13:21] VITALS: BP 126/86; PULSE 92; O2SAT 95
== END 2018-11-27 13:25 | disposition home or self-care (01) ==
LOC: ED 11:35
DX: R07.9 Chest pain, unspecified (principal); J45.909 Unspecified asthma, uncomplicated
CPT/HCPCS: 36000; 36415; 80053; 83880; 84484; 85025; 85379; 93005; 93041; 99284; A9270-GY

== ENCOUNTER 2019-07-15 11:14 | Emergency (ER) | payer OTHER ==
--- NOTE | 2019-07-15 11:25 | ERPHSYRPT ---
- History of Present Illness Time Seen by Provider: 07/15/19 11:25 Historian: patient, family Exam Limitations: no limitations Physician History: 24 y/o morbidly obese white male who wears a cpap machine at night presents with dizziness, exhaustion and left ant dull cp with radiation into left shoulder this am. pt states almost every morning including this morning the cpap mask was not on him. pt denies abd pain. he denies new meds, he denies n/v/ d, he denies blood loss. pt states he took asa 325mg this am Timing/Duration: today, other (not resolved. ) Activities at Onset: none Quality: aching Location: other (left ant chest) Chest Pain Radiation: arm (left) Severity of Pain-Max: mild Severity of Pain-Current: mild Associated Symptoms: dizziness Prior Chest Pain/Cardiac Workup: no prior chest pain Nitro Today/Relief: no nitro taken today Aspirin Treatment Today: 325 mg x 1, provided at home Allergies/Adverse Reactions: No Known Drug Allergies Allergy (Verified 07/15/19 11:53) Home Medications: Aspirin EC 325 mg [Ecotrin 325 MG] 325 mg PO DAILY 03/04/18 [History] Buspirone HCl [Buspar] 15 mg PO TID 11/22/18 [History] Cyclobenzaprine HCl 10 mg [Cyclobenzaprine 10 MG] 10 mg PO TID 11/22/18 [ History] Gabapentin 800 mg PO TID 11/22/18 [History] Multivit-Min/FA/Lycopen/Lutein [Centrum Silver Men Tablet] 1 tab PO DAILY [History] Scalf-3S/Dha/Epa/Fish Oil [Scalf Power 1,050 mg Softgel] 1 cap PO DAILY [History] Omeprazole 40 mg PO DAILY 11/22/18 [History] PARoxetine HCl [Paroxetine HCl] 40 mg PO DAILY 11/22/18 [History] Trazodone HCl 300 mg PO HS 11/22/18 [History] Albuterol 17 gm .ROUTE Q4H PRN PRN 07/15/19 [History] Albuterol 2.5 mg/3 ml Neb [Proventil 2.5 mg/3 ml Neb] 2.5 mg NEB DAILY PRN PRN 07/15/19 [History] Aripiprazole [Abilify] 20 mg PO HS 07/15/19 [History] Aspirin EC 325 mg [Ecotrin 325 MG] 325 mg PO DAILY 07/15/19 [History] Buspirone HCl [Buspar] 15 mg PO TID 07/15/19 [History] Gabapentin 600 mg PO TID 07/15/19 [History] Omeprazole 40 mg PO DAILY 07/15/19 [History] Paroxetine HCl [Paxil] 40 mg PO DAILY 07/15/19 [History] Trazodone HCl 300 mg PO HS 07/15/19 [History] - Review of Systems Constitutional: Weakness Eyes: No Symptoms Ears, Nose, & Throat: No Symptoms Respiratory: No Symptoms Cardiac: Chest Pain Abdominal/Gastrointestinal: No Symptoms Genitourinary Symptoms: No Symptoms Musculoskeletal: No Symptoms Skin: No Symptoms Neurological: No Symptoms Psychological: No Symptoms Endocrine: No Symptoms Hematologic/Lymphatic: No Symptoms Immunological/Allergic: No Symptoms All Other Systems: Reviewed and Negative - Past Medical History Neurological History: No Pertinent History ENT History: No Pertinent History Cardiac History: No Pertinent History Respiratory History: No Pertinent History Endocrine Medical History: No Pertinent History Musculoskeletal History: No Pertinent History GI Medical History: No Pertinent History History: No Pertinent History Psycho-Social History: No Pertinent History Male Reproductive Disorders: No Pertinent History - Nursing Vital Signs Nursing Vital Signs: Initial Vital Signs Temperature 99.3 F 07/15/19 11:19 Pulse Rate 88 07/15/19 11:19 Respiratory Rate 12 07/15/19 11:19 Blood Pressure 118/79 07/15/19 11:19 O2 Sat by Pulse Oximetry 96 07/15/19 11:19 Pain Scale Pain Intensity 8 - Physical Exam General Appearance: no apparent distress, alert, anxiety, obese Eye Exam: PERRL/EOMI, eyes nml inspection Ears, Nose, Throat Exam: normal ENT inspection, moist mucous membranes Neck Exam: normal inspection, non-tender, supple, full range of motion Respiratory Exam: normal breath sounds, chest tenderness, lungs clear, airway intact, No respiratory distress Cardiovascular Exam: regular rate/rhythm, normal heart sounds, normal peripheral pulses Gastrointestinal/Abdomen Exam: soft, normal bowel sounds, No tenderness Rectal Exam: not done Back Exam: normal inspection, normal range of motion, No CVA tenderness, No vertebral tenderness Extremity Exam: normal inspection, normal range of motion, pelvis stable Neurologic Exam: alert, oriented x 3, cooperative, shipping 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 comparison ekg 11/27/18 no changes. ) Ordered Tests: Active Orders 24 hr Category Date Time Status EKG-ER Only STAT Care 07/15/19 11:26 Active IV Insertion STAT Care 07/15/19 11:26 Active Pulse Oximetry (ED) STAT Care 07/15/19 11:26 Active CHEST 1 VIEW (PORTABLE) Stat Exams 07/15/19 11:26 Completed CBC W DIFF Stat Lab 07/15/19 11:32 Completed CMP Stat Lab 07/15/19 11:32 Completed D-DIMER QUANTITATION Stat Lab 07/15/19 11:32 Completed NT PRO BNP Stat Lab 07/15/19 11:32 Completed PROTIME WITH INR Stat Lab 07/15/19 11:32 Completed TROPONIN Q3H Lab 07/15/19 11:32 Completed TROPONIN Q3H Lab 07/15/19 14:30 Ordered TROPONIN Q3H Lab 07/15/19 17:30 Ordered TROPONIN Q3H Lab 07/15/19 20:30 Ordered TROPONIN Q3H Lab 07/15/19 23:30 Ordered Medication Summary Discontinued Medications Generic Name Dose Route Start Last Admin Trade Name Freq PRN Reason Stop Dose Admin Aspirin Confirm 07/15/19 11:39 Baby Aspirin 81 Mg Chew Administered 07/15/19 11:40 Dose 324 mg .ROUTE .STK-MED ONE Sodium Chloride 1,000 mls @ 999 mls/hr 07/15/19 11:26 07/15/19 12:43 Sodium Chloride 0.9% 1000 Ml IV 07/15/19 12:26 Infused .Q1H1M STA Infusion Sodium Chloride Confirm 07/15/19 11:39 Sodium Chloride 0.9% 1000 Ml Administered 07/15/19 11:40 Dose 1,000 mls @ ud .ROUTE .STK-MED ONE Lab/Rad Data: Laboratory Result Diagrams 07/15/19 11:32 07/15/19 11:32 Laboratory Results 07/15/19 07/15/19 07/15/19 Range/Units 11:32 11:32 11:32 WBC (4.0-10.5) K/mm3 RBC (4.1-5.6) M/mm3 Hgb (12.5-18.0) gm/dl Hct (42-50) % MCV (78-100) fl MCH (26-32) pg MCHC (32-36) g/dl RDW (11.5-14.0) % Plt Count (150-450) K/mm3 MPV (6-9.5) fl Gran % (36.0-66.0) % Eos # (Auto) (0-0.5) Absolute Lymphs (auto) (1.0-4.6) Absolute Monos (auto) (0.0-1.3) Lymphocytes % (24.0-44.0) % Monocytes % (0.0-12.0) % Eosinophils % (0.00-5.0) % Basophils % (0.0-0.4) % Absolute Granulocytes (1.4-6.9) Basophils # (0-0.4) PT 11.0 (8.83-12.87) SECONDS INR 0.97 (0.8-3.0) D-Dimer 494 (215-500) ng/mL Sodium 142 (137-145) mmol/L Potassium 4.1 (3.5-5.1) mmol/L Chloride 106 (98-107) mmol/L Carbon Dioxide 24 (22-30) mmol/L Anion Gap 17.1 H (5-15) MEQ/L BUN 12 (9-20) mg/dL Creatinine 0.73 (0.66-1.25) mg/dL Estimated GFR > 60.0 ML/MIN Glucose 94 (74-106) mg/dL Calcium 9.2 (8.4-10.2) mg/dL Total Bilirubin 0.50 (0.2-1.3) mg/dL AST 44 (17-59) U/L ALT 34 (0-50) U/L Alkaline Phosphatase 71 (38-126) U/L Troponin I < 0.012 (0.000-0.034) ng/mL NT-Pro-B Natriuret Pep 38.1 (0-450) pg/mL Serum Total Protein 7.4 (6.3-8.2) g/dL Albumin 4.1 (3.5-5.0) g/dL 07/15/19 Range/Units 11:32 WBC 8.6 (4.0-10.5) K/mm3 RBC 5.33 (4.1-5.6) M/mm3 Hgb 15.0 (12.5-18.0) gm/dl Hct 45.6 (42-50) % MCV 85.6 (78-100) fl MCH 28.1 (26-32) pg MCHC 32.9 (32-36) g/dl RDW 13.8 (11.5-14.0) % Plt Count 229 (150-450) K/mm3 MPV 11.0 H (6-9.5) fl Gran % 63.2 (36.0-66.0) % Eos # (Auto) 0.18 (0-0.5) Absolute Lymphs (auto) 2.35 (1.0-4.6) Absolute Monos (auto) 0.59 (0.0-1.3) Lymphocytes % 27.4 (24.0-44.0) % Monocytes % 6.9 (0.0-12.0) % Eosinophils % 2.1 (0.00-5.0) % Basophils % 0.4 (0.0-0.4) % Absolute Granulocytes 5.42 (1.4-6.9) Basophils # 0.03 (0-0.4) PT (8.83-12.87) SECONDS INR (0.8-3.0) D-Dimer (215-500) ng/mL Sodium (137-145) mmol/L Potassium (3.5-5.1) mmol/L Chloride (98-107) mmol/L Carbon Dioxide (22-30) mmol/L Anion Gap (5-15) MEQ/L BUN (9-20) mg/dL Creatinine (0.66-1.25) mg/dL Estimated GFR ML/MIN Glucose (74-106) mg/dL Calcium (8.4-10.2) mg/dL Total Bilirubin (0.2-1.3) mg/dL AST (17-59) U/L ALT (0-50) U/L Alkaline Phosphatase (38-126) U/L Troponin I (0.000-0.034) ng/mL NT-Pro-B Natriuret Pep (0-450) pg/mL Serum Total Protein (6.3-8.2) g/dL Albumin (3.5-5.0) g/dL - Progress Progress: improved Air Movement: good Progress Note: 07/15/19 13:16 cxr no acute process Blood Culture(s) Obtained: No Antibiotics given: No Counseled pt/family regarding: lab results, diagnosis, need for follow-up, rad results - Departure Departure Disposition: Home Clinical Impression: Weakness, Chest pain Condition: Stable Critical Care Time: No Additional Instructions: follow up with provider of cpap for equipment issues. follow up with primary doctor for further management Forms: Work/School Release Form
[2019-07-15] MEDS ORDERED: Sodium Chloride 0.9% 1000 ML 1,000 ML IV STA (11:26)
[2019-07-15] MEDS ORDERED: BABY ASPIRIN 81 MG CHEW ONE (11:39)
[2019-07-15] MEDS ORDERED: Sodium Chloride 0.9% 1000 ML 1,000 ML ONE (11:39)
[2019-07-15 11:44] LABS: Absolute Neutrophil Ct (ANC) 5.42 (1.4-6.9); BASOPHIL % 0.4 % (0.0-0.4); Basophil (Absolute #) 0.03 (0-0.4); Eosinophil % 2.1 % (0.00-5.0); Eosinophil (Absolute #) 0.18 (0-0.5); Hematocrit 45.6 % (42-50); Lymphocyte (Absolute #) 2.35 (1.0-4.6); Lymphocytes % 27.4 % (24.0-44.0); Mean Cell Volume 85.6 fl (78-100); Mean Corpuscular Hemoglobin 28.1 pg (26-32); Mean Corpuscular Hgb Concent. 32.9 g/dl (32-36); Monocyte (Absolute #) 0.59 (0.0-1.3); Monocytes % 6.9 % (0.0-12.0); Neutrophil % 63.2 % (36.0-66.0); Platelet Count 229 K/mm3 (150-450); Red Blood Count 5.33 M/mm3 (4.1-5.6); Red Cell Distribution Width 13.8 % (11.5-14.0); White Blood Count 8.6 K/mm3 (4.0-10.5)
[2019-07-15 11:57] LABS: INR 0.97 (0.8-3.0)
--- NOTE | 2019-07-15 12:02 | XRAY ---
Indication: Chest pain. Comparison: None Portable chest demonstrates normal heart and lungs. Bony thorax intact.
[2019-07-15 12:10] LABS: ALBUMIN 4.1 g/dL (3.5-5.0); ALKALINE PHOSPHATASE 71 U/L (38-126); ANION GAP 17.1 MEQ/L (5-15); BLOOD UREA NITROGEN 12 mg/dL (9-20); CHLORIDE 106 mmol/L (98-107); Calcium 9.2 mg/dL (8.4-10.2); Carbon Dioxide 24 mmol/L (22-30); Creatinine 1 0.73 mg/dL (0.66-1.25); Glucose 94 mg/dL (74-106); NT PRO BNP 38.1 pg/mL (0-450); Potassium 4.1 mmol/L (3.5-5.1); SGOT/AST 44 U/L (17-59); SGPT/ALT 34 U/L (0-50); SODIUM 142 mmol/L (137-145); Total Protein 7.4 g/dL (6.3-8.2)
[2019-07-15 13:59] VITALS: BP 109/67; PULSE 77; O2SAT 99
== END 2019-07-15 13:50 | disposition home or self-care (01) ==
LOC: MERGE 11:14 → ED 11:14
DX: R53.1 Weakness (principal); R07.9 Chest pain, unspecified
CPT/HCPCS: 36415; 71045; 80053; 83880; 84484; 85025; 85379; 85610; 93005; 94760; 96360; 99284; A9270-GY

== ENCOUNTER 2019-08-31 18:13 | Emergency (ER) | payer OTHER ==
[2019-08-31] MEDS ORDERED: DUONEB 0.5-3 MG/3 ml Neb IH ONE ×2 (19:16→19:18)
[2019-08-31] MEDS ORDERED: DELTASONE 20 MG PO ONE (19:16)
--- NOTE | 2019-08-31 19:16 | ERPHSYRPT ---
- History of Present Illness Time Seen by Provider: 08/31/19 19:05 Source: patient Exam Limitations: no limitations Patient Subjective Stated Complaint: Cough/chest pain Triage Nursing Assessment: Patient ambulated into ED and transferred self to bed. Patient A+O X3. Patient's skin pink, warm and dry. Patient complains of productive cough with yellow/green sputum. Patient denies fever. Upon assessment patient tells this nurse he is having chest rueda. Lungs clear a/p niyah. Heart tones audible. Physician History: 24 y M hx of asthma reports 2-3 days of body aches, mainly the bilateral arms, resolved today, no with 12 hours of pprogressive shortness of breath with and constant moderate sharp stabbing anterior not radiating chest pain. Cough productive of occasional yellow phlegm. Fever last night of 100.7, no fever today and no antipyretics prior to presenting to the emergency department. Feels like previous asthma exacerbations. Denies recent leg swelling PND or orthopnea.. Denies recent travel or sick contacts. PMH: Patient endorses history of depression, anxiety, asthma Social: Patient denies tobacco Timing/Duration: day(s) (3) Severity: moderate Modifying Factors: Improves With: nothing Allergies/Adverse Reactions: No Known Drug Allergies Allergy (Verified 08/31/19 18:27) Home Medications: Aspirin EC 325 mg [Ecotrin 325 MG] 325 mg PO DAILY 03/04/18 [History] Buspirone HCl [Buspar] 15 mg PO TID 11/22/18 [History] Cyclobenzaprine HCl 10 mg [Cyclobenzaprine 10 MG] 10 mg PO TID 11/22/18 [ History] Gabapentin 800 mg PO TID 11/22/18 [History] Multivit-Min/FA/Lycopen/Lutein [Centrum Silver Men Tablet] 1 tab PO DAILY [History] [place]-3S/Dha/Epa/Fish Oil [[place] Power 1,050 mg Softgel] 1 cap PO DAILY [History] Omeprazole 40 mg PO DAILY 11/22/18 [History] PARoxetine HCl [Paroxetine HCl] 40 mg PO DAILY 11/22/18 [History] Trazodone HCl 300 mg PO HS 11/22/18 [History] Albuterol 17 gm .ROUTE Q4H PRN PRN 07/15/19 [History] Albuterol 2.5 mg/3 ml Neb [Proventil 2.5 mg/3 ml Neb] 2.5 mg NEB DAILY PRN PRN 07/15/19 [History] Aripiprazole [Abilify] 20 mg PO HS 07/15/19 [History] Aspirin EC 325 mg [Ecotrin 325 MG] 325 mg PO DAILY 07/15/19 [History] Buspirone HCl [Buspar] 15 mg PO TID 07/15/19 [History] Gabapentin 600 mg PO TID 07/15/19 [History] Omeprazole 40 mg PO DAILY 07/15/19 [History] Paroxetine HCl [Paxil] 40 mg PO DAILY 07/15/19 [History] Trazodone HCl 300 mg PO HS 07/15/19 [History] Hx Tetanus, Diphtheria Vaccination/Date Given: No Hx Influenza Vaccination/Date Given: No Hx Pneumococcal Vaccination/Date Given: No Immunizations Up to Date: Yes - Review of Systems Constitutional: Fever, No Chills Eyes: No Symptoms Ears, Nose, & Throat: No Symptoms Respiratory: Cough, No Dyspnea, No Dyspnea on Exertion (FARRAR), No Wheezing Cardiac: Chest Pain, No Edema, No Syncope Abdominal/Gastrointestinal: No Abdominal Pain, No Nausea, No Vomiting, No Diarrhea Genitourinary Symptoms: No Dysuria Musculoskeletal: No Back Pain, No Neck Pain Skin: No Rash Neurological: No Dizziness, No Focal Weakness, No Sensory Changes Psychological: No Symptoms Endocrine: No Symptoms All Other Systems: Reviewed and Negative - Past Medical History Pertinent Past Medical History: Yes Neurological History: Migraines ENT History: No Pertinent History Cardiac History: No Pertinent History Respiratory History: Asthma Endocrine Medical History: No Pertinent History Musculoskeletal History: No Pertinent History GI Medical History: No Pertinent History, GERD History: No Pertinent History Psycho-Social History: No Pertinent History, Bipolar, Depression, Anxiety Male Reproductive Disorders: No Pertinent History Other Medical History: occular migrains - Past Surgical History Past Surgical History: Yes Gastrointestinal: Cholecystectomy Musculoskeletal: Orthopedic Surgery Other Surgical History: unsure what surgery was for - Social History Smoking Status: Never smoker Exposure to second hand smoke: No Drug Use: none Patient Lives Alone: No Significant Family History: no pertinent family hx - Nursing Vital Signs Nursing Vital Signs: Initial Vital Signs Temperature 98.1 F 08/31/19 18:27 Pulse Rate 77 08/31/19 18:27 Respiratory Rate 18 08/31/19 18:27 Blood Pressure 135/86 08/31/19 18:27 O2 Sat by Pulse Oximetry 95 08/31/19 18:27 Pain Scale Pain Intensity 7 - Physical Exam General Appearance: no apparent distress, alert Eye Exam: PERRL/EOMI, eyes nml inspection Ears, Nose, Throat Exam: normal ENT inspection, TMs normal, pharynx normal, moist mucous membranes Neck Exam: normal inspection, non-tender, supple, full range of motion Respiratory Exam: normal breath sounds, No lungs clear (course inspiratory breath sounds with very faint end expiratory wheezes in all lung catal[place]), No respiratory distress Cardiovascular Exam: regular rate/rhythm, normal heart sounds, normal peripheral pulses Gastrointestinal/Abdomen Exam: soft, normal bowel sounds, No tenderness, No mass Back Exam: normal inspection, normal range of motion, No CVA tenderness, No vertebral tenderness Extremity Exam: normal inspection, normal range of motion, pelvis stable Neurologic Exam: alert, oriented x 3, cooperative, normal mood/affect, nml cerebellar function, nml station & gait, sensation nml, No motor deficits Skin Exam: normal color, warm, dry, No rash Lymphatic Exam: No adenopathy SpO2 Interpretation: normal SpO2: 95 O2 Delivery: Room Air Ordered Tests: Active Orders 24 hr Category Date Time Status CHEST 2 VIEWS (PA AND LAT) Stat Exams 08/31/19 19:15 Taken FLUTTER [Flutter Therapy] UD RT 08/31/19 19:27 Active Peak Expiratory Flow Rate ONCE RT 08/31/19 19:27 Active Respiratory Therapy Assessment DAILY RT 08/31/19 19:28 Active Medication Summary Discontinued Medications Generic Name Dose Route Start Last Admin Trade Name Freq PRN Reason Stop Dose Admin Albuterol/Ipratropium Confirm 08/31/19 19:16 Duoneb 0.5-3 Mg/3 Ml Neb Administered 08/31/19 19:17 Dose 3 ml IH .STK-MED ONE Albuterol/Ipratropium 3 ml 08/31/19 19:18 08/31/19 19:20 Duoneb 0.5-3 Mg/3 Ml Neb IH 08/31/19 19:19 3 ml STAT ONE Administration Prednisone 60 mg 08/31/19 19:16 08/31/19 20:06 Deltasone 20 Mg PO 08/31/19 19:17 60 mg STAT ONE Administration Prednisone Confirm 08/31/19 19:57 Deltasone 20 Mg Administered 08/31/19 19:58 Dose 60 mg .ROUTE .STK-MED ONE - Progress Progress: improved Progress Note: 08/31/19 20:15 on reevaluation after single nebulizer treatment the patient is moving much more air without wheezes and states he feels better.. On review of his chest x- ray there very well may be an early right lower lobe infiltrate which goes along with his story. Will presumptively treat for pneumonia.. Steroid burst provided for asthma exacerbation likely secondary to pneumonia. Patient is nontoxic well-appearing and appropriate for outpatient management. No evidence of other cardiopulmonary emergent etiology to his complaints. Patient voiced understanding of the treatment plan and return precautions and was instructed to follow up with primary care as well. 08/31/19 20:16 - Departure Departure Disposition: Home Clinical Impression: Cough, Shortness of breath Pneumonia Qualifiers: Pneumonia type: due to unspecified organism Laterality: right Lung location: lower lobe of lung Qualified Code(s): J18.9 - Pneumonia, unspecified organism Condition: Good Critical Care Time: No Referrals: LOULOU ROBERSON [Primary Care Provider] - Instructions: Pneumonia, Adult (DC) Prescriptions: Doxycycline Hyclate 100 mg [Vibramycin 100 MG] 100 mg PO BID #14 tab Prednisone 20 mg [Deltasone 20 mg] 40 mg PO DAILY 4 Days #8 tablet
[2019-08-31] MEDS ORDERED: DELTASONE 20 MG ONE (19:57)
[2019-08-31 20:07] VITALS: O2SAT 95
[2019-08-31 20:29] VITALS: BP 120/75; PULSE 76
--- NOTE | 2019-09-01 08:32 | XRAY ---
Indication: Chest pain and short of breath. Productive cough. Comparison: July 15, 2019. PA/lateral chest demonstrates new subtle right base infiltrate/atelectasis. Remaining heart, lungs, and bony thorax normal.
== END 2019-08-31 20:16 | disposition home or self-care (01) ==
LOC: ED 18:13
DX: R05 Cough (principal); R06.02 Shortness of breath; J18.9 Pneumonia, unspecified organism
CPT/HCPCS: 71046; 94150; 94640; 94667; 99284; A9270-GY

== ENCOUNTER 2019-11-04 10:48 | Observation (INO) | payer MEDICAID, OTHER ==
[2019-11-04] MEDS ORDERED: Sodium Chloride 0.9% 1000 ML 1,000 ML IV STA (11:40)
--- NOTE | 2019-11-04 12:04 | ERPHSYRPT ---
- History of Present Illness Time Seen by Provider: 11/04/19 11:32 Source: patient Exam Limitations: no limitations Patient Subjective Stated Complaint: Syncope Triage Nursing Assessment: Patient brought into ED via EMS and transferred to bed with asssit of 5. Patient A+O to name and date, but disoriented to place. Patient states he was standing at work talking to someone when he "passed out" hitting back of head on concrete [place]. Patient staes he did lose consciousness. Patient complains of head, chest and left knee pain 7/10 constant aching. Patient pupils PERRL. Patient head secured in C-spine on back board at this time. Physician History: Patient reassessed. He has chronic left knee pain. NO new or acute knee pain. Patient advises that he recently started mini press which he takes at night. Minipress causes him feel dizzy, but he was not dizzy when he left for work this AM. Witnessed: bystander Prior Episodes: single episode today Timing/Duration: today Precipitating Factors: none Context: sitting Loss of Consciousness: brief (seconds) Allergies/Adverse Reactions: No Known Drug Allergies Allergy (Verified 11/04/19 10:52) Home Medications: Buspirone HCl [Buspar] 15 mg PO TID 11/22/18 [History] Aripiprazole [Abilify] 20 mg PO HS 07/15/19 [History] Aspirin EC 325 mg [Ecotrin 325 MG] 325 mg PO DAILY 07/15/19 [History] Gabapentin 600 mg PO TID 07/15/19 [History] PARoxetine HCl [Paxil] 40 mg PO DAILY 07/15/19 [History] Bupropion HCl Xl 150 mg [Wellbutrin XL 150 MG] 1 tab PO DAILY 11/04/19 [ History] Prazosin HCl 1 tab PO HS 11/04/19 [History] Hx Tetanus, Diphtheria Vaccination/Date Given: No Hx Influenza Vaccination/Date Given: No Hx Pneumococcal Vaccination/Date Given: No Immunizations Up to Date: Yes - Past Medical History Pertinent Past Medical History: Yes Neurological History: Migraines ENT History: No Pertinent History Cardiac History: No Pertinent History Respiratory History: Asthma Endocrine Medical History: No Pertinent History Musculoskeletal History: No Pertinent History GI Medical History: No Pertinent History, GERD History: No Pertinent History Psycho-Social History: Anxiety, Bipolar, Depression, Other Male Reproductive Disorders: No Pertinent History Other Medical History: occular migraines. disassociative personality schizophrenic type - Past Surgical History Past Surgical History: Yes Gastrointestinal: Cholecystectomy Musculoskeletal: Orthopedic Surgery Other Surgical History: Right ankle surgery - Social History Smoking Status: Never smoker Exposure to second hand smoke: No Drug Use: none Patient Lives Alone: No Significant Family History: no pertinent family hx - Review of Systems Constitutional: No Fever, No Chills Eyes: No Symptoms Ears, Nose, & Throat: No Symptoms Respiratory: No Cough, No Dyspnea Cardiac: No Chest Pain, No Edema, No Syncope Abdominal/Gastrointestinal: No Abdominal Pain, No Nausea, No Vomiting, No Diarrhea Genitourinary Symptoms: No Dysuria Musculoskeletal: No Back Pain, No Neck Pain Skin: No Rash Neurological: Dizziness, No Focal Weakness, No Sensory Changes Psychological: No Symptoms Endocrine: No Symptoms All Other Systems: Reviewed and Negative Physical Exam - Nursing Vital Signs Nursing Vital Signs: Initial Vital Signs Temperature 97.9 F 11/04/19 10:52 Pulse Rate 65 11/04/19 10:52 Respiratory Rate 18 11/04/19 10:52 Blood Pressure 143/80 11/04/19 10:52 O2 Sat by Pulse Oximetry 95 11/04/19 10:52 Pain Scale Pain Intensity 0 - Josie Coma Scale Best Eye Response (Josie): (4) open spontaneously Best Verbal Response (Valentine): (5) oriented Best Motor Response (Josie): (6) obeys commands Josie Total: 15 - Physical Exam General Appearance: no apparent distress, alert Eye Exam: bilateral eye: normal inspection, PERRL, EOMI Ears, Nose, Throat Exam: normal ENT inspection, pharynx normal, moist mucous membranes Neck Exam: normal inspection, non-tender, supple, full range of motion Respiratory: normal breath sounds, lungs clear, No chest tenderness, No respiratory distress Cardiovascular: regular rate/rhythm, capillary refill <2 sec, No murmur, No pulse deficit Gastrointestinal: soft, No tenderness, No distention, No mass Back Exam: normal inspection, normal range of motion, other (c spine, tspine and L spine midline TTP), No CVA tenderness, No vertebral tenderness Extremity Exam: normal inspection, normal range of motion, pelvis stable, other (chronic left knee pain. 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 Exam: normal speech, PERRL, No abnormal speech, No facial droop, No facial paresthesias, No facial weakness, No hearing deficit (R) Coordination/Gait: normal finger to nose Motor/Sensory: no motor deficit, no sensory deficit, no pronator drift Skin Exam: normal color, warm, dry, No rash SpO2 Interpretation: normal SpO2: 94 O2 Delivery: Room Air - Course EKG Interpreted by Me: RATE, NORMAL AXIS, NORMAL QRS - CT Exams Head CT Interpretation: Negative (CT head, c-spine, T-spine, Lspine negative for acute pathology) Ordered Tests: Active Orders 24 hr Category Date Time Status EKG-ER Only STAT Care 11/04/19 11:40 Active IV Insertion STAT Care 11/04/19 11:40 Active Pulse Oximetry (ED) STAT Care 11/04/19 11:40 Active CERVICAL SPINE WO CONTRAST [CT] Stat Exams 11/04/19 11:42 Completed CHEST 1 VIEW (PORTABLE) Stat Exams 11/04/19 11:41 Taken HEAD WITHOUT CONTRAST [CT] Stat Exams 11/04/19 11:42 Completed LUMBAR SPINE W/O [CT] Stat Exams 11/04/19 12:06 Completed THORACIC SPINE W/O CONTRAST [CT] Stat Exams 11/04/19 12:06 Completed CBC W DIFF Stat Lab 11/04/19 12:55 Completed CMP Stat Lab 11/04/19 12:55 Completed ETHYL ALCOHOL Stat Lab 11/04/19 12:55 Completed UA W/RFX UR CULTURE Stat Lab 11/04/19 14:28 Ordered Urine Triage Profile Stat Lab 11/04/19 14:28 Ordered Transfer Order Routine Transfer 11/04/19 Ordered Medication Summary Discontinued Medications Generic Name Dose Route Start Last Admin Trade Name Freq PRN Reason Stop Dose Admin Sodium Chloride 1,000 mls @ 999 mls/hr 11/04/19 11:40 11/04/19 14:20 Sodium Chloride 0.9% 1000 Ml IV 11/04/19 12:40 Infused .Q1H1M STA Infusion Sodium Chloride Confirm 11/04/19 13:12 Sodium Chloride 0.9% 1000 Ml Administered 11/04/19 13:13 Dose 1,000 mls @ ud .ROUTE .STK-MED ONE Scopolamine HBr 1.5 mg 11/04/19 14:30 11/04/19 14:44 Transderm Scop 1.5mg Patch TOP 11/04/19 14:31 1.5 mg STAT ONE Administration Lab/Rad Data: Laboratory Result Diagrams 11/04/19 12:55 11/04/19 12:55 Laboratory Results 11/04/19 11/04/19 Range/Units 12:55 12:55 WBC 6.8 (4.0-10.5) K/mm3 RBC 5.74 H (4.1-5.6) M/mm3 Hgb 16.7 (12.5-18.0) gm/dl Hct 49.1 (42-50) % MCV 85.5 (78-100) fl MCH 29.1 (26-32) pg MCHC 34.0 (32-36) g/dl RDW 14.4 H (11.5-14.0) % Plt Count 252 (150-450) K/mm3 MPV 11.1 H (7.5-11.0) fl Gran % 61.6 (36.0-66.0) % Eos # (Auto) 0.21 (0-0.5) Absolute Lymphs (auto) 1.90 (1.0-4.6) Absolute Monos (auto) 0.47 (0.0-1.3) Lymphocytes % 28.0 (24.0-44.0) % Monocytes % 6.9 (0.0-12.0) % Eosinophils % 3.1 (0.00-5.0) % Basophils % 0.4 (0.0-0.4) % Absolute Granulocytes 4.18 (1.4-6.9) Basophils # 0.03 (0-0.4) Sodium 141 (137-145) mmol/L Potassium 4.2 (3.5-5.1) mmol/L Chloride 103 (98-107) mmol/L Carbon Dioxide 30 (22-30) mmol/L Anion Gap 11.8 (5-15) MEQ/L BUN 17 (9-20) mg/dL Creatinine 0.98 (0.66-1.25) mg/dL Estimated GFR > 60.0 ML/MIN Glucose 92 (74-106) mg/dL Calcium 9.4 (8.4-10.2) mg/dL Total Bilirubin 0.70 (0.2-1.3) mg/dL AST 31 (17-59) U/L ALT 29 (0-50) U/L Alkaline Phosphatase 80 (38-126) U/L Serum Total Protein 8.1 (6.3-8.2) g/dL Albumin 4.4 (3.5-5.0) g/dL Ethyl Alcohol < 10 (0-10) mg/dL - Progress Progress Note: 11/04/19 14:57 We attempted to ambulate patient in our ED but he became dizzy. Repeat neuro exam unchanged. Discussed with Dr.: Other (Case discussed with Dr. Storm covering Dr. Flores who accepts admission to tele observation. Scopolamine patch behind ear ordered. ) - Departure Departure Disposition: Observation Clinical Impression: Syncope Condition: Stable Critical Care Time: No Referrals: LOULOU FLORES [Primary Care Provider] -
--- NOTE | 2019-11-04 12:32 | XRAY ---
Indication: Neck and shoulder pain following fall. Multiple contiguous axial images obtained through the cervical spine. Sagittal and coronal reformatted images obtained. Comparison: None. There is a normal cervical radiograph January 06, 2014. Axial images negative for acute fracture, suspicious bony lesions, or spinal canal stenosis. Sagittal and coronal reformatted images demonstrates normal alignment with vertebral body heights/disc spaces maintained. No acute fracture, subluxation, or jumped facet. Normal appearing craniocervical junction. Visualized noncontrasted soft tissues including base of the brain unremarkable. CT thoracic spine reported separately. Impression: Normal CT cervical spine.
--- NOTE | 2019-11-04 12:36 | XRAY ---
Indication: Pain following fall. Syncope. Multiple contiguous axial images obtained through the cervical spine. Sagittal and coronal reformatted images obtained. Comparison: CT chest November 22, 2018. CT cervical spine reported separately. Axial images negative for acute fracture, suspicious bony lesions, or spinal canal stenosis. Sagittal and coronal reformatted images demonstrates normal alignment with vertebral body heights/disc spaces maintained. No acute compression fracture or subluxation. Visualized noncontrasted soft tissues unremarkable. Impression: Continued normal CT thoracic spine.
--- NOTE | 2019-11-04 12:38 | XRAY ---
Indication: Syncope. Status post fall. Multiple contiguous axial images obtained through the head without contrast. Comparison: November 22, 2018. Again normal appearing brain parenchyma, ventricles, and bony calvarium. Visualized paranasal sinuses and mastoid air cells are clear. Impression: Continued normal CT head without contrast exam.
--- NOTE | 2019-11-04 12:42 | XRAY ---
Indication: Pain following fall. Syncope. Multiple contiguous axial images obtained through the lumbar spine. Sagittal and coronal reformatted images obtained. Comparison: None. There is a normal lumbar radiograph October 09, 2018. CT thoracic spine reported separately. Axial images negative for acute fracture, suspicious bony lesions, or spinal canal stenosis. Sagittal and coronal reformatted images demonstrates normal alignment with vertebral body heights/disc spaces maintained. No acute compression fracture or subluxation. Visualized noncontrasted soft tissues unremarkable. Impression: Normal CT lumbar spine.
[2019-11-04 12:57] LABS: Absolute Neutrophil Ct (ANC) 4.18 (1.4-6.9); BASOPHIL % 0.4 % (0.0-0.4); Basophil (Absolute #) 0.03 (0-0.4); Eosinophil % 3.1 % (0.00-5.0); Eosinophil (Absolute #) 0.21 (0-0.5); Hematocrit 49.1 % (42-50); Hemoglobin 16.7 gm/dl (12.5-18.0); Mean Cell Volume 85.5 fl (78-100); Mean Corpuscular Hemoglobin 29.1 pg (26-32); Mean Platelet Volume 11.1 fl (7.5-11.0); Monocyte (Absolute #) 0.47 (0.0-1.3); Monocytes % 6.9 % (0.0-12.0); Neutrophil % 61.6 % (36.0-66.0); Platelet Count 252 K/mm3 (150-450); Red Blood Count 5.74 M/mm3 (4.1-5.6); Red Cell Distribution Width 14.4 % (11.5-14.0); White Blood Count 6.8 K/mm3 (4.0-10.5)
[2019-11-04 13:09] LABS: ALBUMIN 4.4 g/dL (3.5-5.0); ALKALINE PHOSPHATASE 80 U/L (38-126); ANION GAP 11.8 MEQ/L (5-15); BLOOD UREA NITROGEN 17 mg/dL (9-20); CHLORIDE 103 mmol/L (98-107); Calcium 9.4 mg/dL (8.4-10.2); Carbon Dioxide 30 mmol/L (22-30); Creatinine 1 0.98 mg/dL (0.66-1.25); ETHYL ALCOHOL < 10 mg/dL (0-10); Glucose 92 mg/dL (74-106); Potassium 4.2 mmol/L (3.5-5.1); SGOT/AST 31 U/L (17-59); SGPT/ALT 29 U/L (0-50); SODIUM 141 mmol/L (137-145); Total Protein 8.1 g/dL (6.3-8.2)
[2019-11-04] MEDS ORDERED: Sodium Chloride 0.9% 1000 ML 1,000 ML ONE (13:12)
[2019-11-04] MEDS ORDERED: Transderm Scop 1.5MG Patch TOP ONE (14:30)
[2019-11-04 14:57] LABS: Appearance CLEAR (CLEAR); Bilirubin NEGATIVE (NEGATIVE); Blood NEGATIVE Ery/ul (0-5); Glucose NEGATIVE (NEGATIVE); Ketones NEGATIVE (NEGATIVE); Leukocyte Esterase NEGATIVE (NEGATIVE); Mucus SLIGHT /HPF (NEGATIVE); Nitrite NEGATIVE (NEGATIVE); Protein,Urine Dip NEGATIVE (Negative); Specific Gravity 1.024 (1.005-1.025); Urobilinogen NEGATIVE mg/dL (0-1); WBC 0-2 /HPF (0-5)
[2019-11-04 15:16] LABS: Amphetamine,Urine NEGATIVE (NEGATIVE); Barbiturate,Urine NEGATIVE (NEGATIVE); Benzodiazepine,Urine NEGATIVE (NEGATIVE); Cocaine,Urine NEGATIVE (NEGATIVE); Methadone,Urine NEGATIVE (NEGATIVE); Opiate,Urine NEGATIVE (NEGATIVE); PCP,Urine NEGATIVE (NEGATIVE); THC,Urine NEGATIVE (NEGATIVE)
[2019-11-04] MEDS ORDERED: Abilify 10 MG PO SCH (22:00)
[2019-11-04] MEDS ORDERED: BUSPAR 5 MG PO SCH (22:00)
[2019-11-04] MEDS ORDERED: NEURONTIN 300 MG PO SCH (22:00)
[2019-11-05] MEDS ORDERED: MEDICATION INTERVENTION MC SCH (07:15)
[2019-11-05 07:37] VITALS: BP 136/89; PULSE 95; O2SAT 92
--- NOTE | 2019-11-05 09:07 | SSS ---
DISCHARGE DIAGNOSIS: SYNCOPAL EPISODE. HISTORY: The patient is a 24 year-old white male who has had significant problems with psychiatric history in regards to schizophrenia, anxiety and depression issues. He had fairly recently seen at [facility] for the above problems. They had placed him on some Minipress to try to help him with some night terrors which he had been having. The patient reports he was working at [employer] when apparently he passed out. He reports striking the back of his head. The patient was brought to the emergency room for evaluation and subsequently admitted to the hospital for further evaluation and management. PAST MEDICAL/SURGICAL HISTORY: Otherwise significant for gastroesophageal reflux disease, migraine headaches. He has previously had a cholecystectomy. He had right ankle surgery. MEDICATIONS: His medications at home are Buspar 15 mg t.i.d., Abilify 20 mg at night, aspirin 325 mg daily, gabapentin 600 mg t.i.d., Paxil 40 mg a day, Wellbutrin Extended Release 150 mg daily, Prazosin one at night. ALLERGIES: NKDA. PHYSICAL EXAMINATION: The patient's vital signs on admission showed his temperature to be 97.9F, pulse 65, respiratory rate 18 and blood pressure 143/80. O2 saturation 95% on room air. HEENT: Normocephalic, atraumatic. Pupils equal round reactive to light. Extraocular movements intact. Oropharynx is pink and moist. NECK: Supple without lymphadenopathy, thyromegaly or JVD. CHEST: Clear to auscultation. HEART: Regular rate and rhythm. ABDOMEN: Soft. No palpable masses. EXTREMITIES: Without cyanosis, clubbing or edema. NEUROLOGIC: The patient is alert and oriented x3. HOSPITAL COURSE: He is accompanied by his mother at the time of my examination. He seems to be totally back to his normal state of health at this time. The patient otherwise had blood pressures that were normal throughout the day as well as his heart rate. His troponins have all been less than 0.012. His urine drug screen was negative. UA showed specific gravity of 1.024 and was otherwise entirely normal. His CMP was entirely normal. His ETOH was less than 10. CBC was normal. He had CT scan of the neck which was normal cervical spine. Normal CT of the head without contrast. Normal thoracic spine. Normal lumbar spine. 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 His EKG otherwise showed some diminished R-wave across the precordial leads. The patient is fairly significantly obese. At this time the patient is felt to be ready for discharge home again. He was suggested to hold the Prazosin. He was requested to get a blood pressure monitor and check his blood pressures at home. He is to increase his fluids. The patient had seen Dr. Ortiz remotely in the past for hypertension and we asked him to see him in follow up for further evaluation possibly including tilt table test. He will also have follow up appointment in my office in one week.
--- NOTE | 2019-11-05 09:14 | XRAY ---
Indication: Syncope. Comparison: August 31, 2019. Portable chest demonstrates normal heart, lungs, and bony thorax.
[2019-11-05] MEDS ORDERED: Wellbutrin XL 150 MG PO SCH (10:00)
[2019-11-05] MEDS ORDERED: FLUZONE QUAD 2019-2020 SYRINGE IM ONE (10:00)
[2019-11-05] MEDS ORDERED: Ecotrin 325 MG PO SCH (10:00)
[2019-11-05] MEDS ORDERED: Paxil 20 MG PO SCH (10:00)
== END 2019-11-05 09:14 | disposition home or self-care (01) ==
LOC: ED 10:48 → MED SURG 15:47
PROVIDERS: ADMIT Family Medicine; ATTEND Family Medicine
DX: R55 Syncope and collapse (principal); Z79.899 Other long term (current) drug therapy
CPT/HCPCS: 36000; 36415; 70450; 71045; 72125; 72128; 72131; 80053; 80307; 81001; 84484; 85025; 93005; 93268; 94760; 94762; 94770; 96360; 99285; G0378; 90686; A9270-GY; G0480

== ENCOUNTER 2020-02-03 14:37 | Emergency (ER) | payer OTHER ==
[2020-02-03] MEDS ORDERED: MORPHINE SULFATE 2 MG INJ ONE (15:01)
[2020-02-03] MEDS ORDERED: Sodium Chloride 0.9% 1000 ML 1,000 ML ONE (15:01)
[2020-02-03 15:02] LABS: Appearance CLEAR (CLEAR); Bilirubin NEGATIVE (NEGATIVE); Blood NEGATIVE Ery/ul (0-5); Glucose NEGATIVE (NEGATIVE); Ketones NEGATIVE (NEGATIVE); Leukocyte Esterase NEGATIVE (NEGATIVE); Mucus SLIGHT /HPF (NEGATIVE); Nitrite NEGATIVE (NEGATIVE); Protein,Urine Dip NEGATIVE (Negative); Specific Gravity 1.016 (1.005-1.025); Urobilinogen NEGATIVE mg/dL (0-1)
[2020-02-03] MEDS: Sodium Chloride 0.9% 1000 ML 1,000 ML IV STA (15:02)
[2020-02-03] MEDS: MORPHINE SULFATE 2 MG INJ IV ONE (15:02)
[2020-02-03 15:05] LABS: Absolute Neutrophil Ct (ANC) 4.28 (1.4-6.9); BASOPHIL % 0.3 % (0.0-0.4); Basophil (Absolute #) 0.02 (0-0.4); Eosinophil % 3.1 % (0.00-5.0); Eosinophil (Absolute #) 0.23 (0-0.5); Hemoglobin 16.3 gm/dl (12.5-18.0); Lymphocyte (Absolute #) 2.25 (1.0-4.6); Lymphocytes % 30.7 % (24.0-44.0); Mean Cell Volume 85.8 fl (78-100); Mean Corpuscular Hemoglobin 28.5 pg (26-32); Mean Corpuscular Hgb Concent. 33.3 g/dl (32-36); Mean Platelet Volume 11.1 fl (7.5-11.0); Monocyte (Absolute #) 0.56 (0.0-1.3); Monocytes % 7.6 % (0.0-12.0); Neutrophil % 58.3 % (36.0-66.0); Platelet Count 246 K/mm3 (150-450); Red Blood Count 5.71 M/mm3 (4.1-5.6); Red Cell Distribution Width 13.6 % (11.5-14.0); White Blood Count 7.3 K/mm3 (4.0-10.5)
--- NOTE | 2020-02-03 15:38 | XRAY ---
Indication: Left abdomen pain and swelling. Multiple contiguous axial images obtained through the abdomen and pelvis using 100 cc Isovue-370 contrast only. Comparison: None Lung bases are clear. Heart is not enlarged. Noncontrasted stomach and bowel loops appear nonobstructed. Normal appendix. Mild diffuse scattered colonic fecal debris. Previous cholecystectomy. No free fluid/air. Fatty hepatomegaly measuring 21.7 cm. Also 15.7 cm splenomegaly. Remaining liver, pancreas, spleen, adrenal glands, kidneys, ureters, bladder, and aorta appear unremarkable. No pathologic retroperitoneal lymphadenopathy. Osseous structures intact. No ventral or inguinal hernias. Impression: 1. Mild fecal stasis, fatty hepatomegaly, and splenomegaly. 2. Remaining CT abdomen/pelvis with contrast exam is negative.
--- NOTE | 2020-02-03 15:56 | ERPHSYRPT ---
- History of Present Illness Time Seen by Provider: 02/03/20 14:55 Historian: patient Exam Limitations: no limitations Patient Subjective Stated Complaint: Abdominal pain Triage Nursing Assessment: Patient ambulated back to ED and transferred self to bed. Patient A +O X 3. Patient's skin pink, warm and dry. Patient complains of left sided abdominal pain constant sharp, pressure 8/10 that started this am. Abdomen round and soft with BS X 4. Patient complains of N/V today. Patient was sent over per Dr. Ruth for further work up. Physician History: Patient is a 25 M sent to our emergency department from [place] for work up of left UQP. Pain started today. Pain described as a sharp pain associated with N/V. NO trauma or fevers. NO history of the same. Patient voices no other c/o. Timing/Duration: today Activities at Onset: none Quality: sharpness Abdominal Pain Onset Location: LUQ Pain Radiation: no radiation Severity of Pain-Max: moderate Severity of Pain-Current: mild Modifying Factors: Improves With: palpation Associated Symptoms: nausea, vomiting Previous symptoms: no prior history Allergies/Adverse Reactions: No Known Drug Allergies Allergy (Verified 02/03/20 14:58) Home Medications: Buspirone HCl [Buspar] 15 mg PO TID 11/22/18 [History] Aripiprazole [Abilify] 20 mg PO HS 07/15/19 [History] Aspirin EC 325 mg [Ecotrin 325 MG] 325 mg PO DAILY 07/15/19 [History] Gabapentin 600 mg PO TID 07/15/19 [History] PARoxetine HCl [Paxil] 40 mg PO DAILY 07/15/19 [History] Bupropion HCl Xl 150 mg [Wellbutrin XL 150 MG] 1 tab PO DAILY 11/04/19 [ History] Hx Tetanus, Diphtheria Vaccination/Date Given: No Hx Influenza Vaccination/Date Given: No Hx Pneumococcal Vaccination/Date Given: No Immunizations Up to Date: Yes Travel Risk - International Travel Have you traveled outside of the country in past 3 weeks: No Have you or anyone close to you been diagnosed with or: No Do your reside in a community with a known COVID-19 case?: Yes If Yes where:: [facility] - Coronavirus Screening Has patient experienced Coronavirus symptoms: No - Review of Systems Constitutional: No Symptoms, No Fever, No Chills Eyes: No Symptoms Ears, Nose, & Throat: No Symptoms Respiratory: No Symptoms, No Cough, No Dyspnea Cardiac: No Symptoms, No Chest Pain, No Edema, No Syncope Abdominal/Gastrointestinal: Constipation, No Abdominal Pain, No Nausea, No Vomiting, No Diarrhea Genitourinary Symptoms: No Symptoms, No Dysuria Musculoskeletal: No Symptoms, No Back Pain, No Neck Pain Skin: No Symptoms, No Rash Neurological: No Symptoms, No Dizziness, No Focal Weakness, No Sensory Changes Psychological: No Symptoms Endocrine: No Symptoms Hematologic/Lymphatic: No Symptoms Immunological/Allergic: No Symptoms All Other Systems: Reviewed and Negative - Past Medical History Pertinent Past Medical History: Yes Neurological History: Migraines, Seizures ENT History: No Pertinent History Cardiac History: Hypertension Respiratory History: Asthma, Sleep Apnea Endocrine Medical History: No Pertinent History Musculoskeletal History: Other GI Medical History: Gallbladder Disease, Other History: No Pertinent History Psycho-Social History: Anxiety, Bipolar, Depression, Other Male Reproductive Disorders: No Pertinent History Other Medical History: Occular Migraines, 1 heat seizure in 2009, Hx of HTN ( resolved), Acid Reflux, Personality Disorder, Right Ankle torn Tendon and ligament (2000) - Past Surgical History Past Surgical History: Yes Neuro Surgical History: No Pertinent History Cardiac: No Pertinent History Respiratory: No Pertinent History Gastrointestinal: Cholecystectomy Genitourinary: No Pertinent History Musculoskeletal: Other Male Surgical History: No Pertinent History Other Surgical History: 2000 Right Ankle tendon and ligament repair - Social History Smoking Status: Never smoker Exposure to second hand smoke: Yes Drug Use: none Patient Lives Alone: No Significant Family History: no pertinent family hx - Nursing Vital Signs Nursing Vital Signs: Initial Vital Signs Temperature 98.4 F 02/03/20 14:47 Pulse Rate 78 02/03/20 14:47 Respiratory Rate 18 02/03/20 14:47 Blood Pressure 102/65 02/03/20 14:47 O2 Sat by Pulse Oximetry 96 02/03/20 14:47 Pain Scale Pain Intensity 8 - Physical Exam General Appearance: no apparent distress, alert Eye Exam: PERRL/EOMI, eyes nml inspection Ears, Nose, Throat Exam: normal ENT inspection, pharynx normal, moist mucous membranes Neck Exam: normal inspection, non-tender, supple, full range of motion Respiratory Exam: normal breath sounds, lungs clear, No respiratory distress Cardiovascular Exam: regular rate/rhythm, normal heart sounds Gastrointestinal/Abdomen Exam: soft, tenderness, No mass, No pulsatile mass ( TTP LUQ. +swelling at this location. NO signs of trauma. ) Back Exam: normal inspection, normal range of motion, No CVA tenderness, No vertebral tenderness Extremity Exam: normal inspection, normal range of motion, pelvis stable Neurologic Exam: alert, oriented x 3, cooperative, normal mood/affect, nml cerebellar function, sensation nml, No motor deficits Skin Exam: normal color, warm, dry SpO2 Interpretation: normal SpO2: 96 O2 Delivery: Room Air - Course EKG Interpreted by Me: RATE, Sinus Rhythm, NORMAL AXIS, NORMAL INTERVALS - CT Exams Abdomen/Pelvis CT Interpretation: Tele-radiologist Report (splenomagaly, hepatomegaly, fecal stasis) Ordered Tests: Active Orders 24 hr Category Date Time Status EKG-ER Only STAT Care 02/03/20 14:40 Active IV Insertion STAT Care 02/03/20 14:40 Active ABDOMEN AND PELVIS W CONTRAST [CT] Stat Exams 02/03/20 14:41 Completed CBC W DIFF Stat Lab 02/03/20 14:15 Completed TROPONIN Q3H Lab 02/03/20 14:15 Completed TROPONIN Q3H Lab 02/03/20 17:45 Ordered TROPONIN Q3H Lab 02/03/20 20:45 Ordered TROPONIN Q3H Lab 02/03/20 23:45 Ordered TROPONIN Q3H Lab 02/04/20 02:45 Ordered UA W/RFX UR CULTURE Stat Lab 02/03/20 14:50 Completed Medication Summary Discontinued Medications Generic Name Dose Route Start Last Admin Trade Name Marcinq PRN Reason Stop Dose Admin Sodium Chloride 1,000 mls @ 999 mls/hr 02/03/20 14:40 02/03/20 15:02 Sodium Chloride 0.9% 1000 Ml IV 02/03/20 15:40 999 mls/hr .Q1H1M STA Administration Sodium Chloride Confirm 02/03/20 15:01 Sodium Chloride 0.9% 1000 Ml Administered 02/03/20 15:02 Dose 1,000 mls @ ud .ROUTE .STK-MED ONE Morphine Sulfate 2 mg 02/03/20 14:40 02/03/20 15:02 Morphine Sulfate 2 Mg Inj IV 02/03/20 14:41 2 mg STAT ONE Administration Morphine Sulfate Confirm 02/03/20 15:01 Morphine Sulfate 2 Mg Inj Administered 02/03/20 15:02 Dose 2 mg .ROUTE .STK-MED ONE Lab/Rad Data: Laboratory Result Diagrams 02/03/20 14:15 Laboratory Results 02/03/20 02/03/20 02/03/20 Range/Units 14:50 14:15 14:15 WBC 7.3 (4.0-10.5) K/mm3 RBC 5.71 H (4.1-5.6) M/mm3 Hgb 16.3 (12.5-18.0) gm/dl Hct 49.0 (42-50) % MCV 85.8 (78-100) fl MCH 28.5 (26-32) pg MCHC 33.3 (32-36) g/dl RDW 13.6 (11.5-14.0) % Plt Count 246 (150-450) K/mm3 MPV 11.1 H (7.5-11.0) fl Gran % 58.3 (36.0-66.0) % Eos # (Auto) 0.23 (0-0.5) Absolute Lymphs (auto) 2.25 (1.0-4.6) Absolute Monos (auto) 0.56 (0.0-1.3) Lymphocytes % 30.7 (24.0-44.0) % Monocytes % 7.6 (0.0-12.0) % Eosinophils % 3.1 (0.00-5.0) % Basophils % 0.3 (0.0-0.4) % Absolute Granulocytes 4.28 (1.4-6.9) Basophils # 0.02 (0-0.4) Troponin I < 0.012 (0.000-0.034) ng/mL Urine Color YELLOW (YELLOW) Urine Appearance CLEAR (CLEAR) Urine pH 6.0 (5-6) Ur Specific [place] 1.016 (1.005-1.025) Urine Protein NEGATIVE (Negative) Urine Ketones NEGATIVE (NEGATIVE) Urine Blood NEGATIVE (0-5) Natanael/ul Urine Nitrite NEGATIVE (NEGATIVE) Urine Bilirubin NEGATIVE (NEGATIVE) Urine Urobilinogen NEGATIVE (0-1) mg/dL Ur Leukocyte Esterase NEGATIVE (NEGATIVE) Urine WBC (Auto) 3-5 (0-5) /HPF Urine RBC (Auto) NONE (0-2) /HPF U Epithel Cells (Auto) NONE (FEW) /HPF Urine Bacteria (Auto) NONE (NEGATIVE) /HPF Urine Mucus (Auto) SLIGHT (NEGATIVE) /HPF Urine Culture Reflexed NO (NO) Urine Glucose NEGATIVE (NEGATIVE) mg/dL - Progress Progress: improved Progress Note: 02/03/20 16:09 Patient reassessed. He is well. Vitals WNL. Patient tolerated PO. CT a/p negative for acute pathology. + hepatomegaly, splenomegaly and fecal stasis. Patient feels well at this time and is requesting discharge. Discussed with .: Zuly Will see patient in: office Counseled pt/family regarding: lab results, diagnosis, need for follow-up, rad results - Departure Departure Disposition: Home Clinical Impression: Abdominal pain, Hepatomegaly, Hepatic steatosis, Splenomegaly, Constipation Condition: Stable Critical Care Time: No Referrals: LOULOU ROBERSON [Primary Care Provider] - Instructions: Acute Abdomen (Belly Pain) Additional Instructions: Discharge/Care Plan PAMRICHI YAZ was seen on 02/03/20 in the Emergency Room. The patient was counseled regarding Diagnosis,Lab results, Imaging studies, need for follow up and when to return to the Emergency Room. Prescriptions given: Discharge Note I have spoken with the patient and/or caregivers. I have explained the patient' s condition, diagnosis and treatment plan based on the information available to me at this time. I have answered the patient's and/or caregiver's questions and addressed any concerns. The patient and/or caregivers have as good understanding of the patient's diagnosis, condition and treatment plan as can be expected at this point. The vital signs have been stable. The patient's condition is stable and appropriate for discharge from the emergency department. The patient will pursue further outpatient evaluation with the primary care physician or other designated or consulting physician as outlined in the discharge instructions. The patient and/or caregivers are agreeable to this plan of care and follow-up instructions have been explained in detail. The patient and/or caregivers have received these instruction. The patient/and or caregivers are aware that any significant change in condition or worsening of symptoms should prompt an immediate return to this or the closest emergency department or call 911.
[2020-02-03 16:24] VITALS: BP 106/76; PULSE 70; O2SAT 98
== END 2020-02-03 16:26 | disposition home or self-care (01) ==
LOC: ED 14:37
DX: R10.9 Unspecified abdominal pain (principal); R16.2 Hepatomegaly with splenomegaly, not elsewhere classified; K76.0 Fatty (change of) liver, not elsewhere classified; K59.00 Constipation, unspecified; Z79.899 Other long term (current) drug therapy; G40.909 Epilepsy, unspecified, not intractable, without status epilepticus; G47.30 Sleep apnea, unspecified; F31.9 Bipolar disorder, unspecified
CPT/HCPCS: 36000; 36415; 74177; 81001; 84484; 85025; 93005; 96360; 96374; 99284; J2270

== ENCOUNTER 2020-02-19 20:35 | Observation (INO) | payer OTHER ==
--- NOTE | 2020-02-19 20:57 | ERPHSYRPT ---
- History of Present Illness Time Seen by Provider: 02/19/20 20:45 Historian: patient Patient Subjective Stated Complaint: pt has chest pain around 8am this morning and its been on and off all day, pt thought it was his asthma. 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 Triage Nursing Assessment: pt c/o chest pain. Chest pain started around 0800 this morning and occured off and on today, pt chalked it up to his asthma. 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 Pt c/o some slight sob with it, diaphoresis, lightheadedness. Physician History: Patient is a 25-year-old male who presents to our ED with complaints of left- sided chest pain. Pain started this morning at approximately 8 AM. Patient states symptoms have been intermittent throughout the day. Patient went to work for symptoms worsened. Pain described as a sharp pain that tends to radiate into his left arm. Pain is associated with diaphoresis and some nausea. No vomiting. Patient is morbidly obese. Patient symptoms are moderate in intensity. Activity tends to worsen symptoms. Patient has a history of asthma. Patient thought it was his asthma. However he is not wheezing. Patient voices no other complaints at this time. Timing/Duration: today Activities at Onset: none Quality: sharpness Location: substernal Chest Pain Radiation: arm Severity of Pain-Max: moderate Severity of Pain-Current: mild Modifying Factors: Improves With: exertion Associated Symptoms: nausea, diaphoresis Prior Chest Pain/Cardiac Workup: no prior chest pain Aspirin Treatment Today: 325 mg x 1 Allergies/Adverse Reactions: No Known Drug Allergies Allergy (Verified 02/19/20 20:53) Home Medications: Aripiprazole [Abilify] 30 mg PO HS 07/15/19 [History] Aspirin EC 325 mg [Ecotrin 325 MG] 325 mg PO DAILY 07/15/19 [History] Gabapentin 600 mg PO TID 07/15/19 [History] Benztropine Mesylate 2 mg PO HS 02/19/20 [History] Desvenlafaxine Succinate [Desvenlafaxine Succinate ER] 50 mg PO DAILY 02/19/20 [ History] Omeprazole 40 mg PO DAILY 02/19/20 [History] Hx Tetanus, Diphtheria Vaccination/Date Given: Yes Hx Influenza Vaccination/Date Given: No Hx Pneumococcal Vaccination/Date Given: No Immunizations Up to Date: Yes Travel Risk - International Travel Have you traveled outside of the country in past 3 weeks: No Have you or anyone close to you been diagnosed with or: No Do your reside in a community with a known COVID-19 case?: Yes If Yes where:: [place] - Coronavirus Screening Has patient experienced Coronavirus symptoms: No - Past Medical History Pertinent Past Medical History: Yes Neurological History: Migraines, Seizures ENT History: No Pertinent History Cardiac History: Hypertension Respiratory History: Asthma, Sleep Apnea Endocrine Medical History: No Pertinent History Musculoskeletal History: Other GI Medical History: GERD, Gallbladder Disease, Other History: No Pertinent History Psycho-Social History: Anxiety, Bipolar, Depression, Other Male Reproductive Disorders: No Pertinent History Other Medical History: Occular Migraines, 1 heat seizure in 2009, Hx of HTN ( resolved), Acid Reflux, Personality Disorder, Right Ankle torn Tendon and ligament (2000), PTSD - Past Surgical History Past Surgical History: Yes Neuro Surgical History: No Pertinent History Cardiac: No Pertinent History Respiratory: No Pertinent History Gastrointestinal: Cholecystectomy Genitourinary: No Pertinent History Musculoskeletal: Other Male Surgical History: No Pertinent History Other Surgical History: 2000 Right Ankle tendon and ligament repair - Social History Smoking Status: Never smoker Exposure to second hand smoke: No Drug Use: none Patient Lives Alone: No Significant Family History: no pertinent family hx - Nursing Vital Signs Nursing Vital Signs: Initial Vital Signs Temperature 97.9 F 02/19/20 20:38 Pulse Rate 99 H 02/19/20 20:38 Respiratory Rate 21 02/19/20 20:38 Blood Pressure 127/81 02/19/20 20:38 O2 Sat by Pulse Oximetry 97 02/19/20 20:38 Pain Scale Pain Intensity 8 - Physical Exam SpO2: 97 - Course Nursing assessment & vital signs reviewed: Yes EKG Interpreted by Me: RATE (rate 86), Sinus Rhythm, Left Plover Deviation, NORMAL INTERVALS - Radiology Exams Chest X-ray Interpretation: Interpreted by me (No effusion, no consolidation, no opacities, normal bony thorax. No acute pathology.) Ordered Tests: Active Orders 24 hr Category Date Time Status Bedrest with BRP/BSC ROUTINE Activity 02/19/20 22:04 Active Trade Show Coordinator STAT Care 02/19/20 20:52 Completed Code Status Order ROUTINE Care 02/19/20 22:04 Active EKG-ER Only STAT Care 02/19/20 20:51 Completed IV Care Q6H Care 02/19/20 22:04 Active IV Insertion STAT Care 02/19/20 20:51 Completed Implement Chest Pain Pathway ROUTINE Care 02/19/20 22:04 Active Isolation, Initiate & Maintain Q4H Care 02/19/20 20:[address] in Observation ROUTINE Care 02/19/20 22:04 Active Pulse Oximetry (ED) STAT Care 02/19/20 20:51 Completed Artie Husain, Apply ROUTINE Care 02/19/20 22:04 Active Telemetry q6h Care 02/19/20 22:04 Active Weight,Daily 0600 Care 02/19/20 22:04 Active Heart-Healthy Diet Diet 02/19/20 Breakfast Active CHEST 1 VIEW (PORTABLE) Stat Exams 02/19/20 20:52 Taken CBC W DIFF Stat Lab 02/19/20 21:00 Completed CMP Stat Lab 02/19/20 21:00 Completed D-DIMER QUANTITATIVE Stat Lab 02/19/20 21:00 Completed LIPID PROFILE AM.LAB Lab 02/20/20 04:00 Ordered NT PRO BNP Stat Lab 02/19/20 21:00 Completed TROPONIN AM.LAB Lab 02/20/20 04:00 Ordered TROPONIN Q3H Lab 02/19/20 21:00 Completed TROPONIN Q3H Lab 02/20/20 00:00 Ordered TROPONIN Q3H Lab 02/20/20 03:00 Ordered TROPONIN Q3H Lab 02/20/20 06:00 Ordered TROPONIN Q3H Lab 02/20/20 09:00 Ordered Pulse Oximetry Q4H RT 02/19/20 22:04 Active Transfer Order Routine Transfer 02/19/20 Completed Medication Summary Generic Name Dose Route Start Last Admin Trade Name Freq PRN Reason Stop Dose Admin Acetaminophen 650 mg 02/19/20 22:04 Tylenol 325 Mg PO 03/20/20 22:03 Q4H PRN PRN PAIN AND/OR FEVER Al Hydrox/Mg Hydrox/Simethicone 30 ml 02/19/20 22:04 Maalox Es 30 Ml Unit Dose PO 03/20/20 22:03 Q4H PRN PRN INDIGESTION Magnesium Hydroxide 30 - 60 ml 02/19/20 22:04 Milk Of Magnesia 30 Ml PO 03/20/20 22:03 QDP PRN CONSTIPATION Ondansetron HCl 4 mg 02/19/20 22:04 Zofran 4 Mg/2 Ml Vial IV 03/20/20 22:03 Q4H PRN PRN NAUSEA/VOMITING Senna/Docusate Sodium 2 udtab 02/19/20 22:04 Senokot-S Tablet PO 03/20/20 22:03 BID PRN PRN CONSTIPATION Discontinued Medications Generic Name Dose Route Start Last Admin Trade Name Freq PRN Reason Stop Dose Admin Amlodipine Besylate 5 mg 02/19/20 22:08 Norvasc 5 Mg PO 02/19/20 22:09 STAT ONE Aspirin 324 mg 02/19/20 21:09 02/19/20 21:10 Baby Aspirin 81 Mg Chew PO 02/19/20 21:10 Not Given STAT ONE Nitroglycerin 1 gm 02/19/20 21:09 02/19/20 21:13 Nitro-Bid 2% Ud Packets TOP 02/19/20 21:10 1 gm STAT ONE Administration Nitroglycerin Confirm 02/19/20 21:12 Nitro-Bid 2% Ud Packets Administered 02/19/20 21:13 Dose [address] .[address] [facility] ONE Lab/Rad Data: Laboratory Result Diagrams 02/19/20 21:00 02/19/20 21:00 Laboratory Results 02/19/20 02/19/20 02/19/20 Range/Units 21:00 21:00 21:00 WBC (4.0-10.5) K/mm3 RBC (4.1-5.6) M/mm3 Hgb (12.5-18.0) gm/dl Hct (42-50) % MCV (78-100) fl MCH (26-32) pg MCHC (32-36) g/dl RDW (11.5-14.0) % Plt Count (150-450) K/mm3 MPV (7.5-11.0) fl Gran % (36.0-66.0) % Eos # (Auto) (0-0.5) Absolute Lymphs (auto) (1.0-4.6) Absolute Monos (auto) (0.0-1.3) Lymphocytes % (24.0-44.0) % Monocytes % (0.0-12.0) % Eosinophils % (0.00-5.0) % Basophils % (0.0-0.4) % Absolute Granulocytes (1.4-6.9) Basophils # (0-0.4) D-Dimer 458 (215-500) ng/mL Sodium 142 (137-145) mmol/L Potassium 3.6 (3.5-5.1) mmol/L Chloride 104 (98-107) mmol/L Carbon Dioxide 26 (22-30) mmol/L Anion Gap 15.6 H (5-15) MEQ/L BUN 19 (9-20) mg/dL Creatinine 1.02 (0.66-1.25) mg/dL Estimated GFR > 60.0 ML/MIN Glucose 105 (74-106) mg/dL Calcium 8.9 (8.4-10.2) mg/dL Total Bilirubin 0.50 (0.2-1.3) mg/dL AST 30 (17-59) U/L ALT 28 (0-50) U/L Alkaline Phosphatase 81 (38-126) U/L Troponin I < 0.012 (0.000-0.034) ng/mL NT-Pro-B Natriuret Pep 22.5 (0-450) pg/mL Serum Total Protein 7.4 (6.3-8.2) g/dL Albumin 4.2 (3.5-5.0) g/dL 02/19/20 Range/Units 21:00 WBC 8.3 (4.0-10.5) K/mm3 RBC 5.45 (4.1-5.6) M/mm3 Hgb 15.7 (12.5-18.0) gm/dl Hct 46.2 (42-50) % MCV 84.8 (78-100) fl MCH 28.8 (26-32) pg MCHC 34.0 (32-36) g/dl RDW 13.4 (11.5-14.0) % Plt Count 255 (150-450) K/mm3 MPV 11.0 (7.5-11.0) fl Gran % 58.3 (36.0-66.0) % Eos # (Auto) 0.25 (0-0.5) Absolute Lymphs (auto) 2.59 (1.0-4.6) Absolute Monos (auto) 0.60 (0.0-1.3) Lymphocytes % 31.1 (24.0-44.0) % Monocytes % 7.2 (0.0-12.0) % Eosinophils % 3.0 (0.00-5.0) % Basophils % 0.4 (0.0-0.4) % Absolute Granulocytes 4.86 (1.4-6.9) Basophils # 0.03 (0-0.4) D-Dimer (215-500) ng/mL Sodium (137-145) mmol/L Potassium (3.5-5.1) mmol/L Chloride (98-107) mmol/L Carbon Dioxide (22-30) mmol/L Anion Gap (5-15) MEQ/L BUN (9-20) mg/dL Creatinine (0.66-1.25) mg/dL Estimated GFR ML/MIN Glucose (74-106) mg/dL Calcium (8.4-10.2) mg/dL Total Bilirubin (0.2-1.3) mg/dL AST (17-59) U/L ALT (0-50) U/L Alkaline Phosphatase (38-126) U/L Troponin I (0.000-0.034) ng/mL NT-Pro-B Natriuret Pep (0-450) pg/mL Serum Total Protein (6.3-8.2) g/dL Albumin (3.5-5.0) g/dL - Progress Progress: improved Air Movement: good Progress Note: 02/19/20 22:30 Patient reassessed. Chest pain improved since application of nitro paste. Patient self-administered aspirin prior to arrival. He takes aspirin daily. Preliminary work-up essentially negative. Due to patient symptomology and risk factors will admit for acute coronary syndrome/cardiac rule out. Plan of care discussed with patient. He agrees to admission to [facility] for further evaluation and treatment. Blood Culture(s) Obtained: No Antibiotics given: No Discussed with : Dario Will see patient in: hospital (observation) Counseled pt/family regarding: lab results, diagnosis, rad results - Departure Departure Disposition: Observation Clinical Impression: ACS (acute coronary syndrome), Chest pain Condition: Fair Critical Care Time: No
[2020-02-19] MEDS ORDERED: BABY ASPIRIN 81 MG CHEW PO ONE (21:09)
[2020-02-19] MEDS ORDERED: NITRO-BID 2% UD PACKETS TOP ONE (21:09)
[2020-02-19] MEDS ORDERED: NITRO-BID 2% UD PACKETS ONE (21:12)
[2020-02-19 21:15] LABS: Absolute Neutrophil Ct (ANC) 4.86 (1.4-6.9); BASOPHIL % 0.4 % (0.0-0.4); Basophil (Absolute #) 0.03 (0-0.4); Eosinophil (Absolute #) 0.25 (0-0.5); Hematocrit 46.2 % (42-50); Hemoglobin 15.7 gm/dl (12.5-18.0); Lymphocyte (Absolute #) 2.59 (1.0-4.6); Lymphocytes % 31.1 % (24.0-44.0); Mean Cell Volume 84.8 fl (78-100); Mean Corpuscular Hemoglobin 28.8 pg (26-32); Monocytes % 7.2 % (0.0-12.0); Neutrophil % 58.3 % (36.0-66.0); Platelet Count 255 K/mm3 (150-450); Red Blood Count 5.45 M/mm3 (4.1-5.6); Red Cell Distribution Width 13.4 % (11.5-14.0); White Blood Count 8.3 K/mm3 (4.0-10.5)
[2020-02-19 21:37] LABS: ALBUMIN 4.2 g/dL (3.5-5.0); ALKALINE PHOSPHATASE 81 U/L (38-126); ANION GAP 15.6 MEQ/L (5-15); BLOOD UREA NITROGEN 19 mg/dL (9-20); CHLORIDE 104 mmol/L (98-107); Calcium 8.9 mg/dL (8.4-10.2); Carbon Dioxide 26 mmol/L (22-30); Creatinine 1 1.02 mg/dL (0.66-1.25); Glucose 105 mg/dL (74-106); NT PRO BNP 22.5 pg/mL (0-450); Potassium 3.6 mmol/L (3.5-5.1); SGOT/AST 30 U/L (17-59); SGPT/ALT 28 U/L (0-50); SODIUM 142 mmol/L (137-145); Total Protein 7.4 g/dL (6.3-8.2)
[2020-02-19] MEDS ORDERED: MILK OF MAGNESIA 30 ML PO PRN (22:04)
[2020-02-19] MEDS ORDERED: TYLENOL 325 MG PO PRN (22:04)
[2020-02-19] MEDS ORDERED: MAALOX ES 30 ML UNIT DOSE PO PRN (22:04)
[2020-02-19] MEDS ORDERED: Zofran 4 MG/2 ML VIAL IV PRN (22:04)
[2020-02-19] MEDS ORDERED: Senokot-S Tablet PO PRN (22:04)
[2020-02-19] MEDS ORDERED: NORVASC 5 MG PO ONE (22:08)
[2020-02-19] MEDS ORDERED: VENTOLIN COMMON CANISTER IH PRN (22:48)
[2020-02-19] MEDS ORDERED: Abilify 10 MG PO SCH (23:45)
[2020-02-19] MEDS ORDERED: COGENTIN 0.5 MG PO SCH (23:45)
[2020-02-20 04:59] VITALS: PULSE 75
[2020-02-20 06:40] LABS: Risk Ratio 5.2
[2020-02-20 07:18] VITALS: BP 126/85
--- NOTE | 2020-02-20 07:40 | XRAY ---
Indication: Chest pain. Comparison: November 04, 2019. Portable chest again demonstrates normal heart, lungs, and bony thorax.
[2020-02-20 07:44] VITALS: O2SAT 95
[2020-02-20] MEDS ORDERED: NEURONTIN 300 MG PO SCH (10:00)
--- NOTE | 2020-02-22 12:59 | SSS ---
DISCHARGE DIAGNOSIS: CHEST PAIN. HISTORY OF PRESENT ILLNESS: The patient is a 25 year-old white male who reports that he woke up with chest pain yesterday morning. He reports it was on the right side of his chest but also did cause pain into his left arm and that is what he was concerned about his heart. He therefore presented to the emergency room for evaluation and management. PAST MEDICAL/SURGICAL HISTORY: Significant for bipolar disorder, gastroesophageal reflux disease and neuropathy. HOME MEDICATIONS: Abilify 30 mg a day, aspirin 325 mg a day, gabapentin 600 mg t.i.d., benztropine mesylate 2 mg at night, Desvenlafaxine succinate 50 mg daily, omeprazole 40 mg a day. ALLERGIES: NKDA. PHYSICAL EXAMINATION: The patient's vital signs on admission showed temperature 97.9F, pulse 99, respiratory rate 21 and blood pressure 127/91. O2 saturation 97%. HEENT: Normocephalic, atraumatic. Pupils equal round reactive to light. Extraocular movements intact. Oropharynx is pink and moist. NECK: Supple without lymphadenopathy, thyromegaly or JVD. CHEST: Clear to auscultation. HEART: Regular rate and rhythm. ABDOMEN: Soft. EXTREMITIES: Without cyanosis, clubbing or edema. NEUROLOGIC: The patient is alert and oriented x3. LAB DATA AND TESTS: Revealed multiple troponins all less than 0.012. His LDL cholesterol was 108 with HDL of 29. His glucose is 105, BUN 19, creatinine 1.02. Electrolytes are normal. Liver enzymes are normal. ProBNP was normal. CBC was entirely normal. D-dimer 458 which is normal. His EKG showed normal sinus rhythm, delay in progression across the R-wave anterior leads are due to the patient's obesity and lead placement. No acute changes are noted. ASSESSMENT: A patient with chest wall pain. Myocardial infarction has been ruled out. He will be given Voltaren gel. He was instructed to ice the chest for 15 minutes at least three times a day. He was told that he should stay off of work for a couple of days and get a work excuse from us for Saturday to return back to work at that time if he is improving. He is to continue his usual home medications otherwise.
== END 2020-02-20 10:20 | disposition home or self-care (01) ==
LOC: ED 20:35 → MED SURG 21:57
PROVIDERS: ADMIT Family Medicine; ATTEND Family Medicine
DX: R07.89 Other chest pain (principal); R11.0 Nausea; R61 Generalized hyperhidrosis; M79.602 Pain in left arm; F31.9 Bipolar disorder, unspecified; G62.9 Polyneuropathy, unspecified; K21.9 Gastro-esophageal reflux disease without esophagitis; Z79.899 Other long term (current) drug therapy; Z87.09 Personal history of other diseases of the respiratory system
CPT/HCPCS: 36000; 36415; 71045; 80053; 80061; 83721; 83880; 84484; 85025; 85379; 93005; 93041; 93268; 94660; 94760; 99285; G0378; A9270-GY

== ENCOUNTER 2020-04-15 20:10 | Emergency (ER) | payer OTHER ==
--- NOTE | 2020-04-15 20:18 | ERPHSYRPT ---
- History of Present Illness Time Seen by Provider: 04/15/20 20:18 Source: patient Exam Limitations: no limitations Physician History: Is a 25-year-old obese white male who has chronic left knee pain. Patient is being followed by nurse practitioner Mely Yousif in the orthopedic clinic. An x-ray of the left knee was performed on 04/03/2020 and there is no evidence of any acute fracture or dislocation. Patient was seen by Mely Yousif in the orthopedic clinic Saturday prior to this evaluation. Patient has an MRI scan scheduled of his left knee next week. Patient is also wanting crutches and time off work. Patient states that the Natrona that the patient was prescribed makes him pass out. Patient states he cannot take NSAIDs. He was told that it would affect his liver and there is some bleeding issues as well. Patient is not diabetic. He has no known drug allergies. Method of Injury: unknown Occurred: other (Chronic) Quality: aching Severity of Pain-Max: moderate Severity of Pain-Current: moderate Lower Extremities Pain: knee: left Modifying Factors: Improves With: movement Allergies/Adverse Reactions: No Known Drug Allergies Allergy (Verified 04/15/20 20:32) Home Medications: Aspirin EC 325 mg [Ecotrin 325 MG] 325 mg PO DAILY 07/15/19 [History] Gabapentin 600 mg PO TID 07/15/19 [History] Benztropine Mesylate 2 mg PO HS 02/19/20 [History] Desvenlafaxine Succinate [Desvenlafaxine Succinate ER] 50 mg PO DAILY 02/19/20 [History] Omeprazole 40 mg PO BIDWM 02/19/20 [History] Hydrocodone/APAP 5-325 Tab^^^ [Natrona 5-325 Tablet^^^] 1 tab PO Q6HPRN PRN MDD 6 04/15/20 [History] Ziprasidone HCl [Geodon] 40 mg PO BID 04/15/20 [History] Hx Tetanus, Diphtheria Vaccination/Date Given: Yes Hx Influenza Vaccination/Date Given: No Hx Pneumococcal Vaccination/Date Given: No Travel Risk - International Travel Have you traveled outside of the country in past 3 weeks: No - Coronavirus Screening Are you exhibiting any of the following symptoms?: No Close contact with a COVID-19 positive Pt in past 14-21 Days: No - Review of Systems Constitutional: No Symptoms Eyes: No Symptoms Ears, Nose, & Throat: No Symptoms Respiratory: No Symptoms Cardiac: No Symptoms Abdominal/Gastrointestinal: No Symptoms Genitourinary Symptoms: No Symptoms Musculoskeletal: Joint Pain (Left knee pain) Skin: No Symptoms Neurological: No Symptoms Psychological: No Symptoms Endocrine: No Symptoms Hematologic/Lymphatic: No Symptoms Immunological/Allergic: No Symptoms All Other Systems: Reviewed and Negative - Past Medical History Pertinent Past Medical History: Yes Neurological History: Migraines, Seizures ENT History: No Pertinent History Cardiac History: Hypertension Respiratory History: Asthma, Sleep Apnea Endocrine Medical History: No Pertinent History Musculoskeletal History: Other GI Medical History: GERD, Gallbladder Disease, Other History: No Pertinent History Psycho-Social History: Anxiety, Bipolar, Depression, Other Male Reproductive Disorders: No Pertinent History Other Medical History: Occular Migraines, 1 heat seizure in 2009, Hx of HTN (resolved), Acid Reflux, Personality Disorder, Right Ankle torn Tendon and ligament (2000), PTSD - Past Surgical History Past Surgical History: Yes Neuro Surgical History: No Pertinent History Cardiac: No Pertinent History Respiratory: No Pertinent History Gastrointestinal: Cholecystectomy Genitourinary: No Pertinent History Musculoskeletal: Other Male Surgical History: No Pertinent History Other Surgical History: 2000 Right Ankle tendon and ligament repair - Social History Smoking Status: Never smoker Exposure to second hand smoke: No Drug Use: none Patient Lives Alone: No Significant Family History: no pertinent family hx - Nursing Vital Signs Nursing Vital Signs: Initial Vital Signs Pulse Rate 103 H 04/15/20 20:14 Respiratory Rate 20 04/15/20 20:14 Blood Pressure 138/82 04/15/20 20:14 O2 Sat by Pulse Oximetry 95 04/15/20 20:14 Pain Scale Pain Intensity [Left Knee] 8 Pain Intensity 8 - Physical Exam General Appearance: no apparent distress, alert, anxiety Eyes, Ears, Nose, Throat Exam: normal ENT inspection, moist mucous membranes Neck Exam: normal inspection, non-tender, supple, full range of motion Cardiovascular/Respiratory Exam: chest non-tender Gastrointestinal/Abdominal Exam: non-tender Back Exam: normal inspection, normal range of motion, No CVA tenderness, No vertebral tenderness Hips Exam: bilateral: non-tender, normal inspection, normal range of motion, no evidence of injury Legs Exam: bilateral leg: non-tender, normal inspection, normal range of motion, no evidence of injury Knees Exam: right knee: non-tender, left knee: normal inspection, normal range of motion, no evidence of injury, pain, soft tissue tenderness Ankle Exam: bilateral ankle: non-tender, normal inspection, normal range of motion, no evidence of injury Foot Exam: bilateral foot: non-tender, normal inspection, normal range of motion, no evidence of injury, abrasions/lacerations Neuro/Tendon Exam: normal sensation, normal motor functions, normal tendon functions, responds to pain Mental Status Exam: alert, oriented x 3, cooperative Skin Exam: normal color, warm, dry O2 Delivery: Room Air - Course Nursing assessment & vital signs reviewed: Yes Ordered Tests: Medication Summary Generic Name Dose Route Start Last Admin Trade Name Freq PRN Reason Stop Dose Admin Methylprednisolone Sodium Succinate 125 mg 04/15/20 20:41 Solu-Medrol 125 Mg IM 04/15/20 20:42 STAT ONE Morphine Sulfate 4 mg 04/15/20 20:40 Morphine Sulfate 4 Mg Inj IM 04/15/20 20:41 STAT ONE Ondansetron HCl 4 mg 04/15/20 20:40 Zofran Odt 4 Mg PO 04/15/20 20:41 STAT ONE - Progress Progress: improved, pain not gone completely Progress Note: 04/15/20 20:47 Medical decision making: This patient has a negative x-ray from 12 days ago of his left knee. He has an MRI scheduled soon he recently was seen by nurse practitioner Benja 2 days ago. Patient has Natrona prescription. We will have him take half a Natrona pill 3-4 times a day and will add steroid to the treatment plan. I will give him narcotic injection for tonight. He is to continue to wear his left knee brace and we will add crutches to his regimen. Counseled pt/family regarding: diagnosis, need for follow-up - Departure Departure Disposition: Home Clinical Impression: Left anterior knee pain Condition: Stable Critical Care Time: No Referrals: LOULOU ROBERSON [Primary Care Provider] - [facility]-Ortho M-F [phone] Additional Instructions: Take 1/2 tablet of your Natrona pain medication every 6-8 hours as needed. Fill your steroid prescription and take as prescribed. Wear the knee brace for comfort and use the crutches as needed. Follow-up with your nurse practitioner in the [facility] orthopedic clinic on Saturday between the hours of 8 and 10 AM. Forms: Work/School Release Form Prescriptions: Prednisone 10 mg [Deltasone 10 mg] 10 mg PO TID #12 tablet
[2020-04-15 20:33] VITALS: O2SAT 95
[2020-04-15] MEDS ORDERED: ZOFRAN ODT 4 MG PO ONE (20:40)
[2020-04-15] MEDS ORDERED: MORPHINE SULFATE 4 MG INJ IM ONE (20:40)
[2020-04-15] MEDS ORDERED: solu-MEDROL 125 MG IM ONE (20:41)
[2020-04-15] MEDS ORDERED: solu-MEDROL 125 MG ONE (20:44)
[2020-04-15] MEDS ORDERED: ZOFRAN ODT 4 MG ONE (20:44)
[2020-04-15] MEDS ORDERED: MORPHINE SULFATE 4 MG INJ ONE (20:44)
[2020-04-15] MEDS ORDERED: Sodium Chloride 0.9% 1000 ML 1,000 ML IV STA (21:10)
[2020-04-15 21:33] VITALS: BP 115/65; PULSE 93
== END 2020-04-15 21:33 | disposition home or self-care (01) ==
LOC: ED 20:10
DX: M25.562 Pain in left knee (principal); Z79.899 Other long term (current) drug therapy; E66.9 Obesity, unspecified
CPT/HCPCS: 96372; 99284; J2270; J2930; Q0162

== ENCOUNTER 2021-03-05 10:46 | Emergency (ER) | payer OTHER ==
--- NOTE | 2021-03-05 10:59 | ERPHSYRPT ---
- History of Present Illness Time Seen by Provider: 03/05/21 10:54 Source: patient Exam Limitations: no limitations Physician History: pt got Covid vaccine 2 days ago and now has some shortness of breath productive of green sputum. No chest pain. No fever but has aches. No Hx definite CAD prior neg perez. No GI symp[toms. Hx Asthma and tried breathing [place] without effect. No one else sick in contact with him that he knows. Although pt has low Wells criteria and PERC , he is at risk for recent vaccination complication , so checking D-Dimer and trops. Timing/Duration: today Activities at Onset: none Severity of Dyspnea-Max: moderate Severity of Dyspnea-Current: moderate Possible Cause: occasional episodes Modifying Factors: Improves With: coughing Associated Symptoms: cough, wheezing, No fever Allergies/Adverse Reactions: No Known Drug Allergies Allergy (Verified 04/15/20 20:32) Home Medications: Aspirin EC 325 mg [Ecotrin 325 MG] 325 mg PO DAILY 07/15/19 [History] Gabapentin 600 mg PO TID 07/15/19 [History] Desvenlafaxine Succinate [Desvenlafaxine Succinate ER] 100 mg PO DAILY 02/19/20 [History] Omeprazole 40 mg PO BIDWM 02/19/20 [History] Ziprasidone HCl [Geodon] 80 mg PO BID 04/15/20 [History] Calcium [Natural Calcium] 1,000 mg PO DAILY 03/05/21 [History] [place]-3 Fatty Acids/Fish Oil [Fish Oil 1,000 mg Capsule] 1 each PO DAILY 03/05/21 [History] Vit B Complex No.10/Folic Acid [B-Complex 100 Cr Tablet] 400 mcg PO DAILY 03/05/21 [History] Hx Tetanus, Diphtheria Vaccination/Date Given: Yes Hx Influenza Vaccination/Date Given: No Hx Pneumococcal Vaccination/Date Given: No - Review of Systems Constitutional: No Fever, No Chills Eyes: No Symptoms Ears, Nose, & Throat: No Symptoms Respiratory: Cough, Dyspnea, Wheezing Cardiac: No Chest Pain, No Edema, No Syncope Abdominal/Gastrointestinal: No Abdominal Pain, No Nausea, No Vomiting, No Diarrhea Genitourinary Symptoms: No Dysuria Musculoskeletal: Myalgias, No Back Pain, No Neck Pain Skin: No Rash Neurological: No Dizziness, No Focal Weakness, No Sensory Changes Psychological: No Symptoms Endocrine: No Symptoms Hematologic/Lymphatic: No Symptoms Immunological/Allergic: No Symptoms All Other Systems: Reviewed and Negative - Past Medical History Pertinent Past Medical History: Yes Neurological History: Migraines, Seizures ENT History: No Pertinent History Cardiac History: Hypertension Respiratory History: Asthma, Sleep Apnea Endocrine Medical History: No Pertinent History Musculoskeletal History: Other GI Medical History: GERD, Gallbladder Disease, Other History: No Pertinent History Psycho-Social History: Anxiety, Bipolar, Depression, Other Male Reproductive Disorders: No Pertinent History Other Medical History: Occular Migraines, 1 heat seizure in 2009, Hx of HTN (resolved), Acid Reflux, Personality Disorder, Right Ankle torn Tendon and ligament (2000), PTSD - Past Surgical History Past Surgical History: Yes Neuro Surgical History: No Pertinent History Cardiac: No Pertinent History Respiratory: No Pertinent History Gastrointestinal: Cholecystectomy Genitourinary: No Pertinent History Musculoskeletal: Other Male Surgical History: No Pertinent History Other Surgical History: 2000 Right Ankle tendon and ligament repair - Social History Smoking Status: Never smoker Exposure to second hand smoke: No Drug Use: none Patient Lives Alone: No Significant Family History: no pertinent family hx - Nursing Vital Signs Nursing Vital Signs: Initial Vital Signs Temperature 96.7 F 03/05/21 10:49 Pulse Rate 90 03/05/21 10:49 Respiratory Rate 22 03/05/21 10:49 Blood Pressure 134/82 03/05/21 10:49 O2 Sat by Pulse Oximetry 97 03/05/21 10:49 Pain Scale Pain Intensity 4 - Physical Exam General Appearance: no apparent distress, alert Eye Exam: PERRL/EOMI Ears, Nose, Throat Exam: normal ENT inspection Neck Exam: normal inspection, supple Respiratory Exam: airway intact, rhonchi Cardiovascular/Chest Exam: normal heart sounds, regular rate/rhythm Abdominal/Gastrointestinal Exam: soft, No tenderness, No distention, No mass Extremity Exam: non-tender, normal range of motion, normal inspection, no calf tenderness, no pedal edema Peripheral Pulses Exam: carotid (R): 2+, carotid (L): 2+, femoral (R): 2+, femo ral (L): 2+, dorsalis-pedis (R): 2+, dorsalis-pedis (L): 2+ Neurologic Exam: alert, oriented x 3, cooperative, 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 cook 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 nml as tested, sensation nml, No motor deficits Skin Exam: normal color, warm, No dry SpO2 Interpretation: normal SpO2: 95 O2 Delivery: Room Air - Course Nursing assessment & vital signs reviewed: Yes EKG Interpreted by Me: Sinus Rhythm, Right [place] Deviation, Non-specific ST Changes - Radiology Exams Chest X-ray Interpretation: Reviewed by me, Other (minimal/mild patches or infiltrates lower lobes and calcium left hilum) Ordered Tests: Active Orders 24 hr Category Date Time Status Ditch Rider STAT Care 03/05/21 11:05 Active EKG-ER Only STAT Care 03/05/21 11:03 Active IV Insertion STAT Care 03/05/21 11:03 Active Pulse Oximetry (ED) STAT Care 03/05/21 11:03 Active CHEST 1 VIEW (PORTABLE) Stat Exams 03/05/21 11:04 Taken CBC W DIFF Stat Lab 03/05/21 11:38 Completed CMP Stat Lab 03/05/21 11:38 Completed D-DIMER QUANTITATIVE Stat Lab 03/05/21 11:38 Completed INFLUENZA A+B NERI Stat Lab 03/05/21 11:27 Completed Lactic Acid Stat Lab 03/05/21 11:12 Completed Manual Differential NC Stat Lab 03/05/21 11:38 Completed NT PRO BNP Stat Lab 03/05/21 11:38 Completed TROPONIN Q3H Lab 03/05/21 11:38 Completed TROPONIN Q3H Lab 03/05/21 14:15 Ordered TROPONIN Q3H Lab 03/05/21 17:15 Ordered TROPONIN Q3H Lab 03/05/21 20:15 Ordered TROPONIN Q3H Lab 03/05/21 23:15 Ordered Respiratory Therapy Assessment DAILY RT 03/05/21 11:19 Active Medication Summary Generic Name Dose Route Start Last Admin Trade Name Freq PRN Reason Stop Dose Admin Sodium Chloride 1,000 mls @ 50 mls/hr 03/05/21 11:15 03/05/21 11:10 Sodium Chloride 0.9% 1000 Ml IV 04/04/21 11:14 50 mls/hr .Q20H HOLDEN Administration Discontinued Medications Generic Name Dose Route Start Last Admin Trade Name Freq PRN Reason Stop Dose Admin Albuterol/Ipratropium 3 ml 03/05/21 11:03 03/05/21 11:18 Duoneb 0.5-3 Mg/3 Ml Neb IH 03/05/21 11:04 3 ml STAT ONE Administration Albuterol/Ipratropium Confirm 03/05/21 11:11 Duoneb 0.5-3 Mg/3 Ml Neb Administered 03/05/21 11:12 Dose 3 ml IH .STK-MED ONE Ceftriaxone Sodium/Dextrose 1 g in 50 mls @ 100 mls/hr 03/05/21 11:46 03/05/21 12:24 Rocephin 1 Gm-D5w 50 Ml Bag IV 03/05/21 12:15 Infused STAT STA Infusion Ceftriaxone Sodium/Dextrose Confirm 03/05/21 11:49 Rocephin 1 Gm-D5w 50 Ml Bag Administered 03/05/21 11:50 Dose 1 g in 50 mls @ ud IV .STK-MED ONE Methylprednisolone Sodium Succinate 125 mg 03/05/21 11:03 03/05/21 11:10 Solu-Medrol 125 Mg IV 03/05/21 11:04 125 mg STAT ONE Administration Methylprednisolone Sodium Succinate Confirm 03/05/21 11:07 Solu-Medrol 125 Mg Administered 03/05/21 11:08 Dose 125 mg .ROUTE .STK-MED ONE Lab/Rad Data: Laboratory Result Diagrams 03/05/21 11:38 03/05/21 11:38 Laboratory Results 03/05/21 03/05/21 03/05/21 Range/Units 11:38 11:38 11:38 WBC (4.0-10.5) K/mm3 RBC (4.1-5.6) M/mm3 Hgb (12.5-18.0) gm/dl Hct (42-50) % MCV (78-100) fl MCH (26-32) pg MCHC (32-36) g/dl RDW (11.5-14.0) % Plt Count (150-450) K/mm3 MPV (7.5-11.0) fl D-Dimer 740 H* (215-500) ng/mL Sodium 139 (137-145) mmol/L Potassium 3.9 (3.5-5.1) mmol/L Chloride 105 (98-107) mmol/L Carbon Dioxide 26 (22-30) mmol/L Anion Gap 11.5 (5-15) MEQ/L BUN 18 (9-20) mg/dL Creatinine 0.76 (0.66-1.25) mg/dL Estimated GFR > 60.0 ML/MIN Glucose 101 (74-106) mg/dL Lactic Acid (0.4-2.0) Calcium 8.8 (8.4-10.2) mg/dL Total Bilirubin 0.30 (0.2-1.3) mg/dL AST 32 (17-59) U/L ALT 30 (0-50) U/L Alkaline Phosphatase 85 (38-126) U/L Troponin I < 0.012 (0.000-0.034) ng/mL NT-Pro-B Natriuret Pep 42.4 (0-450) pg/mL Serum Total Protein 6.6 (6.3-8.2) g/dL Albumin 3.8 (3.5-5.0) g/dL Influenza Type A Ag (NEGATIVE) Influenza Type B Ag (NEGATIVE) 03/05/21 03/05/21 03/05/21 Range/Units 11:38 11:27 11:12 WBC 6.6 (4.0-10.5) K/mm3 RBC 4.73 (4.1-5.6) M/mm3 Hgb 13.2 (12.5-18.0) gm/dl Hct 40.4 L (42-50) % MCV 85.4 (78-100) fl MCH 27.9 (26-32) pg MCHC 32.7 (32-36) g/dl RDW 13.7 (11.5-14.0) % Plt Count 220 (150-450) K/mm3 MPV 11.2 H (7.5-11.0) fl D-Dimer (215-500) ng/mL Sodium (137-145) mmol/L Potassium (3.5-5.1) mmol/L Chloride (98-107) mmol/L Carbon Dioxide (22-30) mmol/L Anion Gap (5-15) MEQ/L BUN (9-20) mg/dL Creatinine (0.66-1.25) mg/dL Estimated GFR ML/MIN Glucose (74-106) mg/dL Lactic Acid 1.1 (0.4-2.0) Calcium (8.4-10.2) mg/dL Total Bilirubin (0.2-1.3) mg/dL AST (17-59) U/L ALT (0-50) U/L Alkaline Phosphatase (38-126) U/L Troponin I (0.000-0.034) ng/mL NT-Pro-B Natriuret Pep (0-450) pg/mL Serum Total Protein (6.3-8.2) g/dL Albumin (3.5-5.0) g/dL Influenza Type A Ag NEGATIVE (NEGATIVE) Influenza Type B Ag NEGATIVE (NEGATIVE) - Progress Progress: re-examined Air Movement: good Progress Note: 03/05/21 12:32 pt had elevated D DImer , but could not fit CT here or [facility]. VQ possible at [facility] and they accepted in ER Dr. Rolon after discussion of risk/benefit with pt and all agree for transfer. Pt advised f/u hilar calcium, alert to monitor for vaccine complications as well as Covid even if test is negative , and return meantime if sobreath CP or other concerns. He voices understanding and will comply. Blood Culture(s) Obtained: No Antibiotics given: Yes Discussed with Dr.: Other (Dr. Rolon [facility]) Will see patient in: ED Counseled pt/family regarding: lab results, diagnosis, need for follow-up, rad results - Departure Departure Disposition: Transfer Clinical Impression: Person under investigation for COVID-19, Asthma exacerbation, Pulmonary infiltrate on chest x-ray, Elevated d-dimer Condition: Good Critical Care Time: No Referrals: LOULOU ROBERSON [Primary Care Provider] - Additional Instructions: followup calcium in chest x-ray may be old infection scar, and infiltrates may be infection. You are also being tested for possible Covid and should isolate per instructions until resulted in a few days. Although a serious problem has not been found , there could still be a complication developing either from COvid , or vaccination , so return meantime if short of breath, chest pain , red or swollen leg or other concerns.
[2021-03-05] MEDS ORDERED: solu-MEDROL 125 MG IV ONE (11:03)
[2021-03-05] MEDS ORDERED: DUONEB 0.5-3 MG/3 ml Neb IH ONE ×2 (11:03→11:11)
[2021-03-05] MEDS ORDERED: solu-MEDROL 125 MG ONE (11:07)
[2021-03-05] MEDS ORDERED: Sodium Chloride 0.9% 1000 ML 1,000 ML ONE (11:08)
[2021-03-05] MEDS ORDERED: Sodium Chloride 0.9% 1000 ML 1,000 ML IV SCH (11:15)
[2021-03-05] MEDS ORDERED: ROCEPHIN 1 Gm-D5w 50 ml Bag** 1 G/50 ML IVPB IV STA (11:46)
[2021-03-05 11:47] LABS: Hematocrit 40.4 % (42-50); Hemoglobin 13.2 gm/dl (12.5-18.0); Mean Cell Volume 85.4 fl (78-100); Mean Corpuscular Hemoglobin 27.9 pg (26-32); Mean Corpuscular Hgb Concent. 32.7 g/dl (32-36); Mean Platelet Volume 11.2 fl (7.5-11.0); Platelet Count 220 K/mm3 (150-450); Red Blood Count 4.73 M/mm3 (4.1-5.6); Red Cell Distribution Width 13.7 % (11.5-14.0); White Blood Count 6.6 K/mm3 (4.0-10.5)
[2021-03-05] MEDS ORDERED: ROCEPHIN 1 Gm-D5w 50 ml Bag** 1 G/50 ML IVPB IV ONE (11:49)
[2021-03-05 11:52] LABS: INFLUENZA A NEGATIVE (NEGATIVE); INFLUENZA B NEGATIVE (NEGATIVE)
[2021-03-05 12:00] LABS: ALBUMIN 3.8 g/dL (3.5-5.0); ALKALINE PHOSPHATASE 85 U/L (38-126); ANION GAP 11.5 MEQ/L (5-15); BLOOD UREA NITROGEN 18 mg/dL (9-20); CHLORIDE 105 mmol/L (98-107); Calcium 8.8 mg/dL (8.4-10.2); Carbon Dioxide 26 mmol/L (22-30); Creatinine 1 0.76 mg/dL (0.66-1.25); EST GLOMERULAR FILTRATION RATE > 60.0 ML/MIN; Glucose 101 mg/dL (74-106); NT PRO BNP 42.4 pg/mL (0-450); Potassium 3.9 mmol/L (3.5-5.1); SGOT/AST 32 U/L (17-59); SGPT/ALT 30 U/L (0-50); SODIUM 139 mmol/L (137-145); Total Protein 6.6 g/dL (6.3-8.2)
[2021-03-05 12:10] VITALS: BP 117/78; PULSE 76
[2021-03-05 12:49] LABS: BAND 1 % (0.0-2.0); Eosinophil 3 % (0.00-3.0); Lymphocytes 31 % (24-44); Monocyte 14 % (0.0-12.0); Neutrophils 51 % (36.-66.); Platelet Estimate NORMAL (NORMAL); Total Cells Counted 100
[2021-03-05 12:52] VITALS: O2SAT 95
--- NOTE | 2021-03-05 18:46 | XRAY ---
Indication: Cough and short of breath. Comparison: February 19, 2020. Portable chest now demonstrates subtle hazy left base infiltrate versus atelectasis. Remaining heart, right lung, and bony thorax normal.
== END 2021-03-05 12:54 | disposition short-term general hospital (02) ==
LOC: ED 10:46
DX: Z11.59 Encounter for screening for other viral diseases (principal); J45.901 Unspecified asthma with (acute) exacerbation; R91.8 Other nonspecific abnormal finding of lung field; R79.89 Other specified abnormal findings of blood chemistry
CPT/HCPCS: 36000; 36415; 71045; 80053; 83605; 83880; 84484; 85025; 85379; 87400; 93005; 93041; 94640; 94760; 96365; 96374; 99285; U0003; J0696; J2930; A9270-GY

== ENCOUNTER 2021-04-16 19:36 | Emergency (ER) | payer OTHER ==
[2021-04-16 20:16] LABS: Absolute Neutrophil Ct (ANC) 4.47 (1.4-6.9); BASOPHIL % 0.5 % (0.0-0.4); Basophil (Absolute #) 0.04 (0-0.4); Eosinophil % 2.5 % (0.00-5.0); Eosinophil (Absolute #) 0.19 (0-0.5); Hemoglobin 13.7 gm/dl (12.5-18.0); Lymphocyte (Absolute #) 2.47 (1.0-4.6); Lymphocytes % 32.3 % (24.0-44.0); Mean Cell Volume 84.8 fl (78-100); Mean Corpuscular Hemoglobin 27.7 pg (26-32); Mean Corpuscular Hgb Concent. 32.6 g/dl (32-36); Mean Platelet Volume 11.1 fl (7.5-11.0); Monocyte (Absolute #) 0.48 (0.0-1.3); Monocytes % 6.3 % (0.0-12.0); Neutrophil % 58.4 % (36.0-66.0); Platelet Count 227 K/mm3 (150-450); Red Blood Count 4.95 M/mm3 (4.1-5.6); White Blood Count 7.7 K/mm3 (4.0-10.5)
[2021-04-16 20:28] LABS: ACETAMINOPHEN < 10 ug/ml (10-30); ALBUMIN 4.1 g/dL (3.5-5.0); ALKALINE PHOSPHATASE 81 U/L (38-126); ANION GAP 13.1 MEQ/L (5-15); BLOOD UREA NITROGEN 16 mg/dL (9-20); CHLORIDE 102 mmol/L (98-107); Calcium 9.3 mg/dL (8.4-10.2); Carbon Dioxide 26 mmol/L (22-30); Creatinine 1 0.91 mg/dL (0.66-1.25); EST GLOMERULAR FILTRATION RATE > 60.0 ML/MIN; ETHYL ALCOHOL < 10 mg/dL (0-10); Glucose 87 mg/dL (74-106); Potassium 3.7 mmol/L (3.5-5.1); SALICYLATE < 1.0 mg/dL (2-20); SGOT/AST 31 U/L (17-59); SGPT/ALT 34 U/L (0-50); SODIUM 138 mmol/L (137-145); Total Protein 7.2 g/dL (6.3-8.2)
--- NOTE | 2021-04-16 21:19 | ERPHSYRPT ---
- History of Present Illness Time Seen by Provider: 04/16/21 19:37 Source: patient Exam Limitations: no limitations Patient Subjective Stated Complaint: pt states he has been having auditory and visual hallucinations and flashbacks since saturday. states today he has felt a little confused also. Triage Nursing Assessment: pt alert and oriented answers questions approp. pt ambulatoryw ith steady gait noted. respirations nonlabored. skin warm and d ry.pupils equal and reactive. bialt upper and lower ext strength equal and wnl. Physician History: 36 years old male with history of anxiety/depression/PTSD presented in the ER with chief complaint of worsening symptoms of anxiety depression and having flashbacks for the last 2 days. Patient reports having auditory and visual hallucinations but could not give any explanation what the voices are telling him. Denies any suicidal homicidal ideations. Patient reports he is going through a lot of stress regarding his marriage in 2 months which is adding to his symptoms. Timing/Duration: day(s) (2), intermittent, gradual onset, worse Severity of Symptoms-Max: moderate Severity of Symptoms-Current: moderate Context related to: significant other, living circumstances Associated Symptoms: anxiety, confused, depressed, frustrated, hallucinating, impaired concentration, No ingestion, No suicidal ideation Previous symptoms: same symptoms as today Allergies/Adverse Reactions: No Known Drug Allergies Allergy (Verified 04/16/21 19:44) Home Medications: Aspirin EC 325 mg [Ecotrin 325 MG] 325 mg PO DAILY 07/15/19 [History] Gabapentin 600 mg PO TID 07/15/19 [History] Desvenlafaxine Succinate [Desvenlafaxine Succinate ER] 100 mg PO DAILY 02/19/20 [History] Omeprazole 40 mg PO BIDWM 02/19/20 [History] Ziprasidone HCl [Geodon] 80 mg PO BID 04/15/20 [History] [place]-3 Fatty Acids/Fish Oil [Fish Oil 1,000 mg Capsule] 1 each PO DAILY 03/05/21 [History] Calcium Carb,Gluc/Mag Ox,Gluc [Calcium Magnesium Caplet] 1 each PO DAILY 04/16/21 [History] Sildenafil Citrate [Viagra] 50 mg PO DAILY PRN PRN 04/16/21 [History] Hx Tetanus, Diphtheria Vaccination/Date Given: Yes Hx Influenza Vaccination/Date Given: Yes Hx Pneumococcal Vaccination/Date Given: No Immunizations Up to Date: Yes Travel Risk - International Travel Have you traveled outside of the country in past 3 weeks: No - Coronavirus Screening Are you exhibiting any of the following symptoms?: No Close contact with a COVID-19 positive Pt in past 14-21 Days: No - Vaccine Status Have you recieved a Covid-19 vaccination: Yes Evp Managing Director: Pfizer - Vaccination Dates Date of 2cond Vaccination (if applicable): na- states allergic rx to firs - Past Medical History Pertinent Past Medical History: Yes Neurological History: Migraines, Seizures ENT History: No Pertinent History Cardiac History: Hypertension Respiratory History: Asthma, Sleep Apnea Endocrine Medical History: No Pertinent History Musculoskeletal History: Other GI Medical History: GERD, Gallbladder Disease, Other History: No Pertinent History Psycho-Social History: Anxiety, Bipolar, Depression, Other Male Reproductive Disorders: No Pertinent History Other Medical History: Occular Migraines, 1 heat seizure in 2009, Hx of HTN , Acid Reflux, Personality Disorder, Right Ankle torn Tendon and ligament (2000), PTSD - Past Surgical History Past Surgical History: Yes Neuro Surgical History: No Pertinent History Cardiac: No Pertinent History Respiratory: No Pertinent History Gastrointestinal: Cholecystectomy Genitourinary: No Pertinent History Musculoskeletal: Other Male Surgical History: No Pertinent History Other Surgical History: 2000 Right Ankle tendon and ligament repair - Social History Smoking Status: Never smoker Exposure to second hand smoke: No Drug Use: none Patient Lives Alone: Yes Significant Family History: no pertinent family hx - Review of Systems Constitutional: No Symptoms Eyes: No Symptoms Ears, Nose, & Throat: No Symptoms Respiratory: No Symptoms Cardiac: No Symptoms Abdominal/Gastrointestinal: No Symptoms Genitourinary Symptoms: No Symptoms Musculoskeletal: No Symptoms Skin: No Symptoms Neurological: No Symptoms Psychological: Anxiety, Depression, Emotional Lability, Hallucinations Endocrine: No Symptoms Hematologic/Lymphatic: No Symptoms Immunological/Allergic: No Symptoms - Nursing Vital Signs Nursing Vital Signs: Initial Vital Signs Temperature 98.2 F 04/16/21 19:49 Pulse Rate 89 04/16/21 19:49 Respiratory Rate 20 04/16/21 19:49 Blood Pressure 154/91 04/16/21 19:49 O2 Sat by Pulse Oximetry 97 04/16/21 19:49 Pain Scale Pain Intensity 0 - Physical Exam General Appearance: no apparent distress, alert, anxiety Eyes, Ears, Nose, Throat Exam: normal ENT inspection, TMs normal, pharynx normal Neck Exam: normal inspection, non-tender, full range of motion Respiratory Exam: normal breath sounds, lungs clear Cardiovascular Exam: regular rate/rhythm, normal heart sounds Gastrointestinal/Abdominal Exam: soft, normal bowel sounds, No tenderness Extremities Exam: normal inspection, normal range of motion Current Suicidality: denies suicide plan Neurological Exam: alert, calm, depressed affect Appearance: appropriate appearance, appropriate insight, no memory impairment Thoughts/Hallucinations: no apparent hallucination Skin Exam: normal color SpO2 Interpretation: normal SpO2: 97 O2 Delivery: Room Air - Course EKG Interpreted by Me: RATE ([id number]), Sinus Rhythm, NORMAL AXIS, NORMAL INTERVALS, NORMAL QRS Ordered Tests: Active Orders 24 hr Category Date Time Status EKG-ER Only STAT Care 04/16/21 19:57 Active ACETAMINOPHEN Stat Lab 04/16/21 20:14 Completed CBC W DIFF Stat Lab 04/16/21 20:14 Completed CMP Stat Lab 04/16/21 20:14 Completed ETHYL ALCOHOL Stat Lab 04/16/21 20:14 Completed SALICYLATE Stat Lab 04/16/21 20:14 Completed UA W/RFX UR CULTURE Stat Lab 04/16/21 22:32 Completed Urine Triage Profile Stat Lab 04/16/21 22:32 Completed Lab/Rad Data: Laboratory Result Diagrams 04/16/21 20:14 04/16/21 20:14 Laboratory Results 04/16/21 04/16/21 04/16/21 Range/Units 22:32 22:32 20:14 WBC (4.0-10.5) K/mm3 RBC (4.1-5.6) M/mm3 Hgb (12.5-18.0) gm/dl Hct (42-50) % MCV (78-100) fl MCH (26-32) pg MCHC (32-36) g/dl RDW (11.5-14.0) % Plt Count (150-450) K/mm3 MPV (7.5-11.0) fl Gran % (36.0-66.0) % Eos # (Auto) (0-0.5) Absolute Lymphs (auto) (1.0-4.6) Absolute Monos (auto) (0.0-1.3) Lymphocytes % (24.0-44.0) % Monocytes % (0.0-12.0) % Eosinophils % (0.00-5.0) % Basophils % (0.0-0.4) % Absolute Granulocytes (1.4-6.9) Basophils # (0-0.4) Sodium 138 (137-145) mmol/L Potassium 3.7 (3.5-5.1) mmol/L Chloride 102 (98-107) mmol/L Carbon Dioxide 26 (22-30) mmol/L Anion Gap 13.1 (5-15) MEQ/L BUN 16 (9-20) mg/dL Creatinine 0.91 (0.66-1.25) mg/dL Estimated GFR > 60.0 ML/MIN Glucose 87 (74-106) mg/dL Calcium 9.3 (8.4-10.2) mg/dL Total Bilirubin 0.40 (0.2-1.3) mg/dL AST 31 (17-59) U/L ALT 34 (0-50) U/L Alkaline Phosphatase 81 (38-126) U/L Serum Total Protein 7.2 (6.3-8.2) g/dL Albumin 4.1 (3.5-5.0) g/dL Urine Color YELLOW (YELLOW) Urine Appearance SLIGHTLY CLOUDY (CLEAR) Urine pH 5.0 (5-6) Ur Specific [place] 1.024 (1.005-1.025) Urine Protein NEGATIVE (Negative) Urine Ketones NEGATIVE (NEGATIVE) Urine Blood NEGATIVE (0-5) Natanael/ul Urine Nitrite NEGATIVE (NEGATIVE) Urine Bilirubin NEGATIVE (NEGATIVE) Urine Urobilinogen NEGATIVE (0-1) mg/dL Ur Leukocyte Esterase NEGATIVE (NEGATIVE) Urine WBC (Auto) 6-10 (0-5) /HPF Urine RBC (Auto) 0-2 (0-2) /HPF U Epithel Cells (Auto) NONE (FEW) /HPF Urine Bacteria (Auto) NONE SEEN (NEGATIVE) /HPF Urine Mucus (Auto) SLIGHT (NEGATIVE) /HPF Urine Culture Reflexed NO (NO) Urine Glucose NEGATIVE (NEGATIVE) mg/dL Salicylates < 1.0 L (2-20) mg/dL Urine Opiates Level NEGATIVE (NEGATIVE) Ur Methadone NEGATIVE (NEGATIVE) Acetaminophen < 10 L (10-30) ug/ml Urine Barbiturates NEGATIVE (NEGATIVE) Ur Phencyclidine (PCP) NEGATIVE (NEGATIVE) Urine Amphetamine NEGATIVE (NEGATIVE) U Benzodiazepine Level NEGATIVE (NEGATIVE) Urine Cocaine NEGATIVE (NEGATIVE) Urine Marijuana (THC) NEGATIVE (NEGATIVE) Ethyl Alcohol < 10 (0-10) mg/dL 04/16/21 Range/Units 20:14 WBC 7.7 (4.0-10.5) K/mm3 RBC 4.95 (4.1-5.6) M/mm3 Hgb 13.7 (12.5-18.0) gm/dl Hct 42.0 (42-50) % MCV 84.8 (78-100) fl MCH 27.7 (26-32) pg MCHC 32.6 (32-36) g/dl RDW 14.0 (11.5-14.0) % Plt Count 227 (150-450) K/mm3 MPV 11.1 H (7.5-11.0) fl Gran % 58.4 (36.0-66.0) % Eos # (Auto) 0.19 (0-0.5) Absolute Lymphs (auto) 2.47 (1.0-4.6) Absolute Monos (auto) 0.48 (0.0-1.3) Lymphocytes % 32.3 (24.0-44.0) % Monocytes % 6.3 (0.0-12.0) % Eosinophils % 2.5 (0.00-5.0) % Basophils % 0.5 (0.0-0.4) % Absolute Granulocytes 4.47 (1.4-6.9) Basophils # 0.04 (0-0.4) Sodium (137-145) mmol/L Potassium (3.5-5.1) mmol/L Chloride (98-107) mmol/L Carbon Dioxide (22-30) mmol/L Anion Gap (5-15) MEQ/L BUN (9-20) mg/dL Creatinine (0.66-1.25) mg/dL Estimated GFR ML/MIN Glucose (74-106) mg/dL Calcium (8.4-10.2) mg/dL Total Bilirubin (0.2-1.3) mg/dL AST (17-59) U/L ALT (0-50) U/L Alkaline Phosphatase (38-126) U/L Serum Total Protein (6.3-8.2) g/dL Albumin (3.5-5.0) g/dL Urine Color (YELLOW) Urine Appearance (CLEAR) Urine pH (5-6) Ur Specific [place] (1.005-1.025) Urine Protein (Negative) Urine Ketones (NEGATIVE) Urine Blood (0-5) Natanael/ul Urine Nitrite (NEGATIVE) Urine Bilirubin (NEGATIVE) Urine Urobilinogen (0-1) mg/dL Ur Leukocyte Esterase (NEGATIVE) Urine WBC (Auto) (0-5) /HPF Urine RBC (Auto) (0-2) /HPF U Epithel Cells (Auto) (FEW) /HPF Urine Bacteria (Auto) (NEGATIVE) /HPF Urine Mucus (Auto) (NEGATIVE) /HPF Urine Culture Reflexed (NO) Urine Glucose (NEGATIVE) mg/dL Salicylates (2-20) mg/dL Urine Opiates Level (NEGATIVE) Ur Methadone (NEGATIVE) Acetaminophen (10-30) ug/ml Urine Barbiturates (NEGATIVE) Ur Phencyclidine (PCP) (NEGATIVE) Urine Amphetamine (NEGATIVE) U Benzodiazepine Level (NEGATIVE) Urine Cocaine (NEGATIVE) Urine Marijuana (THC) (NEGATIVE) Ethyl Alcohol (0-10) mg/dL - Progress Progress: unchanged Progress Note: 04/17/21 00:37 He is medically cleared. Behavioral health evaluation is pending. 04/17/21 02:41 Patient is accepted at [facility]. Counseled pt/family regarding: lab results, diagnosis, need for follow-up - Departure Clinical Impression: Anxiety, Hallucination, Depressive disorder Condition: Stable Critical Care Time: No Referrals: LOULOU ROBERSON [Primary Care Provider] -
[2021-04-16 23:18] LABS: Amphetamine,Urine NEGATIVE (NEGATIVE); Barbiturate,Urine NEGATIVE (NEGATIVE); Benzodiazepine,Urine NEGATIVE (NEGATIVE); Cocaine,Urine NEGATIVE (NEGATIVE); Methadone,Urine NEGATIVE (NEGATIVE); Opiate,Urine NEGATIVE (NEGATIVE); PCP,Urine NEGATIVE (NEGATIVE); THC,Urine NEGATIVE (NEGATIVE)
[2021-04-16 23:20] LABS: Appearance SLIGHTLY CLOUDY (CLEAR); Bacteria NONE SEEN /HPF (NEGATIVE); Bilirubin NEGATIVE (NEGATIVE); Blood NEGATIVE Ery/ul (0-5); Glucose NEGATIVE (NEGATIVE); Ketones NEGATIVE (NEGATIVE); Leukocyte Esterase NEGATIVE (NEGATIVE); Mucus SLIGHT /HPF (NEGATIVE); Nitrite NEGATIVE (NEGATIVE); Protein,Urine Dip NEGATIVE (Negative); RBC 0-2 /HPF (0-2); Specific Gravity 1.024 (1.005-1.025); Urobilinogen NEGATIVE mg/dL (0-1)
[2021-04-17 03:12] VITALS: BP 132/76
[2021-04-17 04:45] VITALS: PULSE 81; O2SAT 96
== END 2021-04-17 04:42 | disposition short-term general hospital (02) ==
LOC: ED 19:36
DX: F41.9 Anxiety disorder, unspecified (principal); R44.3 Hallucinations, unspecified; F32.9 Major depressive disorder, single episode, unspecified
CPT/HCPCS: 36415; 80053; 80307; 81001; 85025; 93005; 99284; G0480

== ENCOUNTER 2021-06-11 11:44 | Emergency (ER) | payer OTHER ==
[2021-06-11 11:52] VITALS: BP 140/65; PULSE 81; O2SAT 98
--- NOTE | 2021-06-11 12:23 | ERPHSYRPT ---
- History of Present Illness Time Seen by Provider: 06/11/21 12:05 Source: patient Exam Limitations: no limitations Patient Subjective Stated Complaint: pt here for syncopal episode at work today, he got hot and went to [employer] on face and passed out hitting forehead on sink, Triage Nursing Assessment: pt arrived per ambulance, alert, resp easy, face mask in palce, skin w/d/p Physician History: This is a 26-year-old morbidly obese white male patient of Dr. Flores who was at the store and felt hot and clammy and suddenly fell hitting his head. He does have a history of migraine headaches, he has a history of bipolar disorder, depression, PTSD and anxiety. He also chronically has impaired concentration. Patient states that he has been trying to eat less recently. Patient denies chest pain. He denies shortness of breath. Timing/Duration: today Severity: mild Associated Symptoms: weakness Allergies/Adverse Reactions: No Known Drug Allergies Allergy (Verified 06/11/21 11:54) Home Medications: Aspirin EC 325 mg [Ecotrin 325 MG] 325 mg PO DAILY 07/15/19 [History] Gabapentin 600 mg PO TID 07/15/19 [History] Desvenlafaxine Succinate [Desvenlafaxine Succinate ER] 100 mg PO DAILY 02/19/20 [History] Omeprazole 40 mg PO BIDWM 02/19/20 [History] Ziprasidone HCl [Geodon] 80 mg PO BID 04/15/20 [History] [place]-3 Fatty Acids/Fish Oil [Fish Oil 1,000 mg Capsule] 1 each PO DAILY 03/05/21 [History] Calcium Carb,Gluc/Mag Ox,Gluc [Calcium Magnesium Caplet] 1 each PO DAILY 04/16/21 [History] Sildenafil Citrate [Viagra] 50 mg PO DAILY PRN PRN 04/16/21 [History] Hx Tetanus, Diphtheria Vaccination/Date Given: Yes Hx Influenza Vaccination/Date Given: Yes Hx Pneumococcal Vaccination/Date Given: No Immunizations Up to Date: Yes Travel Risk - International Travel Have you traveled outside of the country in past 3 weeks: No - Coronavirus Screening Are you exhibiting any of the following symptoms?: No Close contact with a COVID-19 positive Pt in past 14-21 Days: No - Vaccine Status Have you recieved a Covid-19 vaccination: Yes Sponsorship Coordinator: Pfizer - Vaccination Dates Date of 2cond Vaccination (if applicable): n/a Comment: pt had allergic reaction - Review of Systems Constitutional: Weakness Eyes: No Symptoms Ears, Nose, & Throat: No Symptoms Respiratory: No Symptoms Cardiac: No Symptoms Abdominal/Gastrointestinal: No Symptoms Genitourinary Symptoms: No Symptoms Musculoskeletal: No Symptoms Skin: No Symptoms Neurological: Other (Syncopal episode) Psychological: No Symptoms Endocrine: No Symptoms Hematologic/Lymphatic: No Symptoms Immunological/Allergic: No Symptoms All Other Systems: Reviewed and Negative - Past Medical History Pertinent Past Medical History: Yes Neurological History: Migraines, Seizures ENT History: No Pertinent History Cardiac History: Hypertension Respiratory History: Asthma, Sleep Apnea Endocrine Medical History: No Pertinent History Musculoskeletal History: Other GI Medical History: GERD, Gallbladder Disease, Other History: No Pertinent History Psycho-Social History: Anxiety, Bipolar, Depression, Other Male Reproductive Disorders: No Pertinent History Other Medical History: Occular Migraines, 1 heat seizure in 2009, Hx of HTN , Acid Reflux, Personality Disorder, Right Ankle torn Tendon and ligament (2000), PTSD - Past Surgical History Past Surgical History: Yes Neuro Surgical History: No Pertinent History Cardiac: No Pertinent History Respiratory: No Pertinent History Gastrointestinal: Cholecystectomy Genitourinary: No Pertinent History Musculoskeletal: Other Male Surgical History: No Pertinent History Other Surgical History: 2000 Right Ankle tendon and ligament repair - Social History Smoking Status: Never smoker Exposure to second hand smoke: No Drug Use: none Patient Lives Alone: No Significant Family History: no pertinent family hx - Nursing Vital Signs Nursing Vital Signs: Initial Vital Signs Temperature 97.2 F 06/11/21 11:48 Pulse Rate 81 06/11/21 11:48 Respiratory Rate 18 06/11/21 11:48 Blood Pressure 140/65 06/11/21 11:48 O2 Sat by Pulse Oximetry 98 06/11/21 11:48 Pain Scale Pain Intensity 2 - Physical Exam General Appearance: no apparent distress, alert, anxiety Eye Exam: PERRL/EOMI, eyes nml inspection Ears, Nose, Throat Exam: normal ENT inspection, moist mucous membranes Neck Exam: normal inspection, non-tender, supple, full range of motion Respiratory Exam: normal breath sounds, lungs clear, airway intact, No chest tenderness, No respiratory distress Cardiovascular Exam: regular rate/rhythm, normal heart sounds, normal peripheral pulses Gastrointestinal/Abdomen Exam: soft, normal bowel sounds, No tenderness Rectal Exam: not done Back Exam: normal inspection, normal range of motion, No CVA tenderness, No vertebral tenderness Extremity Exam: normal inspection, normal range of motion, pelvis stable Neurologic Exam: alert, oriented x 3, cooperative, shipping and receiving coordinator II-XII nml as tested, normal mood/affect, nml cerebellar function, nml station & gait, sensation nml Skin Exam: normal color, warm, dry Lymphatic Exam: No adenopathy SpO2 Interpretation: normal SpO2: 98 O2 Delivery: Room Air - Course Nursing assessment & vital signs reviewed: Yes EKG Interpreted by Me: RATE (68), Sinus Rhythm, NORMAL AXIS, NORMAL INTERVALS, NORMAL QRS, NORMAL ST-T, Other (No acute ischemia. No change from comparison EKG dated 04/16/21) Ordered Tests: Active Orders 24 hr Category Date Time Status Branch Employment Coordinator STAT Care 06/11/21 12:09 Active Clean Catch Urine Specimen STAT Care 06/11/21 12:08 Active EKG-ER Only STAT Care 06/11/21 12:08 Active Pulse Oximetry (ED) STAT Care 06/11/21 12:08 Active CERVICAL SPINE WO CONTRAST [CT] Stat Exams 06/11/21 12:09 Taken HEAD WITHOUT CONTRAST [CT] Stat Exams 06/11/21 12:09 Taken CBC W DIFF Stat Lab 06/11/21 12:20 Completed CMP Stat Lab 06/11/21 12:20 Completed ETHYL ALCOHOL Stat Lab 06/11/21 12:20 Completed UA W/RFX UR CULTURE Stat Lab 06/11/21 12:19 Completed Urine Triage Profile Stat Lab 06/11/21 12:23 Completed Lab/Rad Data: Laboratory Result Diagrams 06/11/21 12:20 06/11/21 12:20 Laboratory Results 06/11/21 06/11/21 06/11/21 Range/Units 12:23 12:20 12:20 WBC 6.5 (4.0-10.5) K/mm3 RBC 4.88 (4.1-5.6) M/mm3 Hgb 13.8 (12.5-18.0) gm/dl Hct 41.9 L (42-50) % MCV 85.9 (78-100) fl MCH 28.3 (26-32) pg MCHC 32.9 (32-36) g/dl RDW 13.7 (11.5-14.0) % Plt Count 230 (150-450) K/mm3 MPV 10.8 (7.5-11.0) fl Gran % 55.6 (36.0-66.0) % Eos # (Auto) 0.24 (0-0.5) Absolute Lymphs (auto) 1.99 (1.0-4.6) Absolute Monos (auto) 0.60 (0.0-1.3) Lymphocytes % 30.9 (24.0-44.0) % Monocytes % 9.3 (0.0-12.0) % Eosinophils % 3.7 (0.00-5.0) % Basophils % 0.5 (0.0-0.4) % Absolute Granulocytes 3.59 (1.4-6.9) Basophils # 0.03 (0-0.4) Sodium 139 (137-145) mmol/L Potassium 4.0 (3.5-5.1) mmol/L Chloride 101 (98-107) mmol/L Carbon Dioxide 29 (22-30) mmol/L Anion Gap 12.3 (5-15) MEQ/L BUN 18 (9-20) mg/dL Creatinine 0.88 (0.66-1.25) mg/dL Estimated GFR > 60.0 ML/MIN Glucose 99 (74-106) mg/dL Calcium 8.9 (8.4-10.2) mg/dL Total Bilirubin 0.40 (0.2-1.3) mg/dL AST 37 (17-59) U/L ALT 33 (0-50) U/L Alkaline Phosphatase 75 (38-126) U/L Serum Total Protein 7.0 (6.3-8.2) g/dL Albumin 4.1 (3.5-5.0) g/dL Urine Color (YELLOW) Urine Appearance (CLEAR) Urine pH (5-6) Ur Specific [place] (1.005-1.025) Urine Protein (Negative) Urine Ketones (NEGATIVE) Urine Blood (0-5) Natanael/ul Urine Nitrite (NEGATIVE) Urine Bilirubin (NEGATIVE) Urine Urobilinogen (0-1) mg/dL Ur Leukocyte Esterase (NEGATIVE) Urine WBC (Auto) (0-5) /HPF Urine RBC (Auto) (0-2) /HPF U Epithel Cells (Auto) (FEW) /HPF Urine Bacteria (Auto) (NEGATIVE) /HPF Urine Culture Reflexed (NO) Urine Glucose (NEGATIVE) mg/dL Urine Opiates Level NEGATIVE (NEGATIVE) Ur Methadone NEGATIVE (NEGATIVE) Urine Barbiturates NEGATIVE (NEGATIVE) Ur Phencyclidine (PCP) NEGATIVE (NEGATIVE) Urine Amphetamine NEGATIVE (NEGATIVE) U Benzodiazepine Level NEGATIVE (NEGATIVE) Urine Cocaine NEGATIVE (NEGATIVE) Urine Marijuana (THC) NEGATIVE (NEGATIVE) Ethyl Alcohol < 10 (0-10) mg/dL 06/11/21 Range/Units 12:19 WBC (4.0-10.5) K/mm3 RBC (4.1-5.6) M/mm3 Hgb (12.5-18.0) gm/dl Hct (42-50) % MCV (78-100) fl MCH (26-32) pg MCHC (32-36) g/dl RDW (11.5-14.0) % Plt Count (150-450) K/mm3 MPV (7.5-11.0) fl Gran % (36.0-66.0) % Eos # (Auto) (0-0.5) Absolute Lymphs (auto) (1.0-4.6) Absolute Monos (auto) (0.0-1.3) Lymphocytes % (24.0-44.0) % Monocytes % (0.0-12.0) % Eosinophils % (0.00-5.0) % Basophils % (0.0-0.4) % Absolute Granulocytes (1.4-6.9) Basophils # (0-0.4) Sodium (137-145) mmol/L Potassium (3.5-5.1) mmol/L Chloride (98-107) mmol/L Carbon Dioxide (22-30) mmol/L Anion Gap (5-15) MEQ/L BUN (9-20) mg/dL Creatinine (0.66-1.25) mg/dL Estimated GFR ML/MIN Glucose (74-106) mg/dL Calcium (8.4-10.2) mg/dL Total Bilirubin (0.2-1.3) mg/dL AST (17-59) U/L ALT (0-50) U/L Alkaline Phosphatase (38-126) U/L Serum Total Protein (6.3-8.2) g/dL Albumin (3.5-5.0) g/dL Urine Color YELLOW (YELLOW) Urine Appearance CLEAR (CLEAR) Urine pH 6.0 (5-6) Ur Specific [place] 1.025 (1.005-1.025) Urine Protein NEGATIVE (Negative) Urine Ketones NEGATIVE (NEGATIVE) Urine Blood NEGATIVE (0-5) Natanael/ul Urine Nitrite NEGATIVE (NEGATIVE) Urine Bilirubin NEGATIVE (NEGATIVE) Urine Urobilinogen NEGATIVE (0-1) mg/dL Ur Leukocyte Esterase NEGATIVE (NEGATIVE) Urine WBC (Auto) 3-5 (0-5) /HPF Urine RBC (Auto) 3-5 (0-2) /HPF U Epithel Cells (Auto) RARE (FEW) /HPF Urine Bacteria (Auto) RARE (NEGATIVE) /HPF Urine Culture Reflexed NO (NO) Urine Glucose NEGATIVE (NEGATIVE) mg/dL Urine Opiates Level (NEGATIVE) Ur Methadone (NEGATIVE) Urine Barbiturates (NEGATIVE) Ur Phencyclidine (PCP) (NEGATIVE) Urine Amphetamine (NEGATIVE) U Benzodiazepine Level (NEGATIVE) Urine Cocaine (NEGATIVE) Urine Marijuana (THC) (NEGATIVE) Ethyl Alcohol (0-10) mg/dL - Progress Progress: improved Progress Note: 06/11/21 13:28 Patient states that he is feeling well. He has no chest pain. He has no shortness of breath. He has no dizziness. He has no headache. CAT scan of the head without contrast shows no intracranial abnormality. CAT scan of the neck/cervical spine without contrast shows no acute fracture or subluxation. Counseled pt/family regarding: lab results, diagnosis, need for follow-up, rad results - Departure Departure Disposition: Home Clinical Impression: Syncopal episodes Condition: Stable Critical Care Time: No Referrals: LOULOU FLORES [Primary Care Provider] - Additional Instructions: Take your medication as prescribed. Follow-up with your primary care physician on 06/13/2021 for further management. Forms: Work/School Release Form
[2021-06-11 12:34] LABS: Absolute Neutrophil Ct (ANC) 3.59 (1.4-6.9); BASOPHIL % 0.5 % (0.0-0.4); Basophil (Absolute #) 0.03 (0-0.4); Eosinophil % 3.7 % (0.00-5.0); Eosinophil (Absolute #) 0.24 (0-0.5); Hematocrit 41.9 % (42-50); Hemoglobin 13.8 gm/dl (12.5-18.0); Lymphocyte (Absolute #) 1.99 (1.0-4.6); Lymphocytes % 30.9 % (24.0-44.0); Mean Cell Volume 85.9 fl (78-100); Mean Corpuscular Hemoglobin 28.3 pg (26-32); Mean Corpuscular Hgb Concent. 32.9 g/dl (32-36); Mean Platelet Volume 10.8 fl (7.5-11.0); Monocytes % 9.3 % (0.0-12.0); Neutrophil % 55.6 % (36.0-66.0); Platelet Count 230 K/mm3 (150-450); Red Blood Count 4.88 M/mm3 (4.1-5.6); Red Cell Distribution Width 13.7 % (11.5-14.0); White Blood Count 6.5 K/mm3 (4.0-10.5)
[2021-06-11 12:39] LABS: Appearance CLEAR (CLEAR); Bacteria RARE /HPF (NEGATIVE); Bilirubin NEGATIVE (NEGATIVE); Blood NEGATIVE Ery/ul (0-5); Epithelial Cells RARE /HPF (FEW); Glucose NEGATIVE (NEGATIVE); Ketones NEGATIVE (NEGATIVE); Leukocyte Esterase NEGATIVE (NEGATIVE); Nitrite NEGATIVE (NEGATIVE); Protein,Urine Dip NEGATIVE (Negative); Specific Gravity 1.025 (1.005-1.025); Urobilinogen NEGATIVE mg/dL (0-1)
[2021-06-11 12:45] LABS: ALBUMIN 4.1 g/dL (3.5-5.0); ALKALINE PHOSPHATASE 75 U/L (38-126); ANION GAP 12.3 MEQ/L (5-15); BLOOD UREA NITROGEN 18 mg/dL (9-20); CHLORIDE 101 mmol/L (98-107); Calcium 8.9 mg/dL (8.4-10.2); Carbon Dioxide 29 mmol/L (22-30); Creatinine 1 0.88 mg/dL (0.66-1.25); EST GLOMERULAR FILTRATION RATE > 60.0 ML/MIN; ETHYL ALCOHOL < 10 mg/dL (0-10); Glucose 99 mg/dL (74-106); SGOT/AST 37 U/L (17-59); SGPT/ALT 33 U/L (0-50); SODIUM 139 mmol/L (137-145)
[2021-06-11 12:55] LABS: Amphetamine,Urine NEGATIVE (NEGATIVE); Barbiturate,Urine NEGATIVE (NEGATIVE); Benzodiazepine,Urine NEGATIVE (NEGATIVE); Cocaine,Urine NEGATIVE (NEGATIVE); Methadone,Urine NEGATIVE (NEGATIVE); Opiate,Urine NEGATIVE (NEGATIVE); PCP,Urine NEGATIVE (NEGATIVE); THC,Urine NEGATIVE (NEGATIVE)
--- NOTE | 2021-06-11 21:03 | XRAY ---
Indication: Frontal head injury following fall. Syncope. Multiple contiguous axial images obtained through the head without contrast. Comparison: November 04, 2019. Normal appearing brain parenchyma, ventricles, and bony calvarium. Visualized paranasal sinuses and mastoid air cells are clear. Impression: Continued normal CT head without contrast exam. Comment: Preliminary interpretation made by [facility]. No critical discrepancy.
--- NOTE | 2021-06-11 21:07 | XRAY ---
Indication: Neck pain following fall. Syncope. Multiple contiguous axial images obtained through the cervical spine. Sagittal and coronal reformatted images obtained. Comparison: November 04, 2019. Axial images negative for acute fracture, suspicious bony lesions, or spinal canal stenosis. Sagittal and coronal reformatted images demonstrates lordotic straightening, positional versus paraspinal spasm. Vertebral body heights/disc spaces are maintained. No acute compression fracture, subluxation, or jumped facet. Normal appearing craniocervical junction. Visualized noncontrast soft tissues including lung apices are unremarkable. Impression: Cervical lordotic straightening, positional versus paraspinal spasm. Remaining CT cervical spine negative. Comment: Preliminary interpretation made by [facility]. No critical discrepancy.
== END 2021-06-11 13:38 | disposition home or self-care (01) ==
LOC: ED 11:44
DX: R55 Syncope and collapse (principal)
CPT/HCPCS: 36415; 70450; 72125; 80053; 80307; 81001; 85025; 93005; 93041; 94760; 99284; G0480

== ENCOUNTER 2021-09-30 20:57 | Emergency (ER) | payer OTHER ==
[2021-09-30] MEDS ORDERED: BETAMETHASONE DIPROPIONATE TOP SCH (22:00)
--- NOTE | 2021-09-30 22:05 | ERPHSYRPT ---
- History of Present Illness Time Seen by Provider: 09/30/21 21:01 Source: patient Exam Limitations: no limitations Patient Subjective Stated Complaint: pt states he has had peeling to bilat hands for the last week, today he has started getting opne areas in the rash. Triage Nursing Assessment: pt alert and oriented, answers questions approp. pt ambulatory with steady gait noted. respiraitons nonlabored. rash noted to bilat hands between fingers with scabbed open areas . no bleeding noted at this time. Physician History: 26 years old morbidly obese male presented in the ER with 1 week history of peeling off of skin of hands with itching and burning sensation and today started to have some open sores. Patient reports having the symptoms in the past as well which improved but this time it was not going away and was getting worse. No fever or chills reported. Timing/Duration: week(s), gradual onset, worse Quality: itchy Severity: moderate Location: hands Possible Causes: no cause identified Associated Symptoms: rash Allergies/Adverse Reactions: No Known Drug Allergies Allergy (Verified 09/30/21 21:34) Home Medications: Aspirin EC 325 mg [Ecotrin 325 MG] 325 mg PO DAILY 07/15/19 [History] Gabapentin 600 mg PO TID 07/15/19 [History] Desvenlafaxine Succinate [Desvenlafaxine Succinate ER] 100 mg PO DAILY 02/19/20 [History] Omeprazole 40 mg PO BIDWM 02/19/20 [History] Ziprasidone HCl [Geodon] 80 mg PO BID 04/15/20 [History] [place]-3 Fatty Acids/Fish Oil [Fish Oil 1,000 mg Capsule] 1 each PO DAILY 03/05/21 [History] Calcium Carb,Gluc/Mag Ox,Gluc [Calcium Magnesium Caplet] 1 each PO DAILY 04/16/21 [History] Sildenafil Citrate [Viagra] 50 mg PO DAILY PRN PRN 04/16/21 [History] Hx Tetanus, Diphtheria Vaccination/Date Given: Yes Hx Influenza Vaccination/Date Given: No Hx Pneumococcal Vaccination/Date Given: No Immunizations Up to Date: Yes Travel Risk - International Travel Have you traveled outside of the country in past 3 weeks: No - Coronavirus Screening Close contact with a COVID-19 positive Pt in past 14-21 Days: No - Vaccine Status Have you recieved a Covid-19 vaccination: Yes [employer] 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[employer] - Vaccination Dates Date of 2cond Vaccination (if applicable): na - Review of Systems Constitutional: No Symptoms Eyes: No Symptoms Ears, Nose, & Throat: No Symptoms Respiratory: No Symptoms Cardiac: No Symptoms Musculoskeletal: No Symptoms Skin: Pruritis, Rash, Skin Lesions Neurological: No Symptoms Endocrine: No Symptoms Hematologic/Lymphatic: No Symptoms - Past Medical History Pertinent Past Medical History: Yes Neurological History: Migraines, Seizures ENT History: No Pertinent History Cardiac History: Hypertension Respiratory History: Asthma, Sleep Apnea Endocrine Medical History: No Pertinent History Musculoskeletal History: Other GI Medical History: GERD, Gallbladder Disease, Other History: No Pertinent History Psycho-Social History: Anxiety, Bipolar, Depression, Other Male Reproductive Disorders: No Pertinent History Other Medical History: Occular Migraines, 1 heat seizure in 2009, Hx of HTN , Acid Reflux, Personality Disorder, Right Ankle torn Tendon and ligament (2000), PTSD - Past Surgical History Past Surgical History: Yes Neuro Surgical History: No Pertinent History Cardiac: No Pertinent History Respiratory: No Pertinent History Gastrointestinal: Cholecystectomy Genitourinary: No Pertinent History Musculoskeletal: Other Male Surgical History: No Pertinent History Other Surgical History: 2000 Right Ankle tendon and ligament repair - Social History Smoking Status: Never smoker Exposure to second hand smoke: No Drug Use: none Patient Lives Alone: No Significant Family History: no pertinent family hx - Nursing Vital Signs Nursing Vital Signs: Initial Vital Signs Temperature 98.2 F 09/30/21 21:20 Pulse Rate 91 H 09/30/21 21:20 Respiratory Rate 18 09/30/21 21:20 Blood Pressure 137/90 09/30/21 21:20 O2 Sat by Pulse Oximetry 96 09/30/21 21:20 Pain Scale Pain Intensity 0 - Physical Exam General Appearance: no apparent distress Eye Exam: PERRL/EOMI Neck Exam: normal inspection, full range of motion Respiratory Exam: normal breath sounds, lungs clear Cardiovascular Exam: regular rate/rhythm, normal heart sounds Neurologic Exam: alert, oriented x 3, cooperative Skin Exam: normal color, rash (Peeled off skin on the palmar aspect of fingers/palms with superficial skin lesions., Itch pritchett.) SpO2 Interpretation: normal SpO2: 96 O2 Delivery: Room Air Ordered Tests: Medication Summary Generic Name Dose Route Start Last Admin Trade Name Freq PRN Reason Stop Dose Admin Betamethasone Dipropionate 45 gm 09/30/21 22:00 Betamethasone Dipropionate 15 Gm Ointment TOP 10/30/21 21:59 BID HOLDEN - Progress Progress: unchanged Progress Note: 09/30/21 22:03 Patient has dyshidrotic eczema. Started on topical steroid and outpatient follow-up recommended. Counseled pt/family regarding: diagnosis, need for follow-up - Departure Departure Disposition: Home Clinical Impression: Eczema, dyshidrotic Condition: Stable Critical Care Time: No Referrals: LOULOU ROBERSON [Primary Care Provider] - Follow Up with PCP/3 days Instructions: Eczema (Atopic Dermatitis) (DC) Additional Instructions: Apply steroid topically 2-3 times a day. Follow-up with primary care for reevaluation. Return to ER for worsening.
[2021-09-30 22:55] VITALS: BP 135/91; PULSE 75; O2SAT 97
== END 2021-09-30 22:45 | disposition home or self-care (01) ==
LOC: ED 20:57
DX: L30.1 Dyshidrosis [pompholyx] (principal); I10 Essential (primary) hypertension
CPT/HCPCS: 99283

== ENCOUNTER 2021-10-31 18:26 | Emergency (ER) | payer OTHER ==
--- NOTE | 2021-10-31 18:33 | ERPHSYRPT ---
- History of Present Illness Time Seen by Provider: 10/31/21 18:33 Source: patient Exam Limitations: no limitations Physician History: This is a morbidly obese 26-year-old white male who presents with spontaneously erupting small blisters on his left index finger. This is happened in the past and he has popped them without any incident. 2 days ago, the blisters erupted again and he popped them. 24 hours later there was evidence of redness and tenderness which increased today. He has had no fevers. Occurred: days ago (2) Method of Injury: other Quality: burning Severity of Pain-Max: mild Severity of Pain-Current: mild Extremities Pain Location: 2nd finger: right (Infected blisters) Modifying Factors: Improves With: nothing Associated Symptoms: none Allergies/Adverse Reactions: No Known Drug Allergies Allergy (Verified 10/31/21 18:28) Home Medications: Aspirin EC 325 mg [Ecotrin 325 MG] 325 mg PO DAILY 07/15/19 [History] Gabapentin 600 mg PO TID 07/15/19 [History] Desvenlafaxine Succinate [Desvenlafaxine Succinate ER] 100 mg PO DAILY 02/19/20 [History] Omeprazole 40 mg PO BIDWM 02/19/20 [History] Ziprasidone HCl [Geodon] 80 mg PO BID 04/15/20 [History] [place]-3 Fatty Acids/Fish Oil [Fish Oil 1,000 mg Capsule] 1 each PO DAILY 03/05/21 [History] Calcium Carb,Gluc/Mag Ox,Gluc [Calcium Magnesium Caplet] 1 each PO DAILY 04/16/21 [History] Sildenafil Citrate [Viagra] 50 mg PO DAILY PRN PRN 04/16/21 [History] Hx Tetanus, Diphtheria Vaccination/Date Given: Yes Hx Influenza Vaccination/Date Given: No Hx Pneumococcal Vaccination/Date Given: No Travel Risk - International Travel Have you traveled outside of the country in past 3 weeks: No - Coronavirus Screening Are you exhibiting any of the following symptoms?: No Close contact with a COVID-19 positive Pt in past 14-21 Days: No - Vaccine Status Have you recieved a Covid-19 vaccination: Yes 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[employer] - Vaccination Dates Date of 2cond Vaccination (if applicable): na - Review of Systems Constitutional: No Symptoms Eyes: No Symptoms Ears, Nose, & Throat: No Symptoms Respiratory: No Symptoms Cardiac: No Symptoms Abdominal/Gastrointestinal: No Symptoms Genitourinary Symptoms: No Symptoms Musculoskeletal: No Symptoms Skin: Cellulitis (Colitis to redness left index finger in area of ruptured small blisters) Neurological: No Symptoms Psychological: No Symptoms Endocrine: No Symptoms Hematologic/Lymphatic: No Symptoms Immunological/Allergic: No Symptoms All Other Systems: Reviewed and Negative - Past Medical History Pertinent Past Medical History: Yes Neurological History: Migraines, Seizures ENT History: No Pertinent History Cardiac History: Hypertension Respiratory History: Asthma, Sleep Apnea Endocrine Medical History: No Pertinent History Musculoskeletal History: Other GI Medical History: GERD, Gallbladder Disease, Other History: No Pertinent History Psycho-Social History: Anxiety, Bipolar, Depression, Other Male Reproductive Disorders: No Pertinent History Other Medical History: Occular Migraines, 1 heat seizure in 2009, Hx of HTN , Acid Reflux, Personality Disorder, Right Ankle torn Tendon and ligament (2000), PTSD - Past Surgical History Past Surgical History: Yes Neuro Surgical History: No Pertinent History Cardiac: No Pertinent History Respiratory: No Pertinent History Gastrointestinal: Cholecystectomy Genitourinary: No Pertinent History Musculoskeletal: Other Male Surgical History: No Pertinent History Other Surgical History: 2000 Right Ankle tendon and ligament repair - Social History Smoking Status: Never smoker Exposure to second hand smoke: No Drug Use: none Patient Lives Alone: No Significant Family History: no pertinent family hx - Nursing Vital Signs Nursing Vital Signs: Initial Vital Signs Temperature 96.9 F 10/31/21 18:29 Pulse Rate 95 H 10/31/21 18:29 Respiratory Rate 18 10/31/21 18:29 Blood Pressure 134/86 10/31/21 18:29 O2 Sat by Pulse Oximetry 96 10/31/21 18:29 Pain Scale Pain Intensity 9 - Physical Exam General Appearance: no apparent distress, alert, anxiety, obese Eyes, Ears, Nose, Throat Exam: normal ENT inspection, moist mucous membranes Neck Exam: normal inspection, non-tender, supple, full range of motion Cardiovascular/Respiratory Exam: chest non-tender, no respiratory distress Abdominal Exam: non-tender Back Exam: normal inspection, normal range of motion, No CVA tenderness, No vertebral tenderness Shoulder Exam: normal inspection, non-tender, no evidence of injury, normal ROM Elbow/Forearm Exam: normal inspection, non-tender, no evidence of injury, normal ROM Wrist Exam: normal inspection, non-tender, no evidence of injury, normal ROM Neuro/Tendon Exam: normal sensation, normal motor functions, normal tendon functions Mental Status Exam: alert, oriented x 3, cooperative Skin Exam: other (Localized tenderness and redness left index finger in the area of ruptured blisters. No drainage. No odor. No proximal streaking) SpO2 Interpretation: normal O2 Delivery: Room Air - Course Nursing assessment & vital signs reviewed: Yes Ordered Tests: Medication Summary Generic Name Dose Route Start Last Admin Trade Name Nancy PRN Reason Stop Dose Admin Cephalexin HCl 500 mg 10/31/21 18:46 Cephalexin Mh500 Mg Capsule PO 10/31/21 18:47 STAT ONE - Progress Progress: unchanged Counseled pt/family regarding: diagnosis, need for follow-up, rad results - Departure Departure Disposition: Home Clinical Impression: Cellulitis of finger of left hand Condition: Stable Critical Care Time: No Referrals: LOULOU ROBERSON [Primary Care Provider] - Follow up/PCP as directed Additional Instructions: Soak left hand (index finger) warm soapy water and warm Epson salts twice a day. Blot dry use a hairdryer to dry the area. Cover the site with a bandage if working with your hands. Take your antibiotics as prescribed. Call your [facility] doctor tomorrow to make arranges for follow-up appointment. Prescriptions: Cephalexin Mh 500 mg [Keflex 500 mg] 500 mg PO TID #21 cap
[2021-10-31 18:34] VITALS: BP 134/86; PULSE 95; O2SAT 96
[2021-10-31] MEDS ORDERED: KEFLEX 500 MG PO ONE (18:46)
[2021-10-31] MEDS ORDERED: KEFLEX 500 MG ONE (18:49)
== END 2021-10-31 18:56 | disposition home or self-care (01) ==
LOC: ED 18:26
DX: L03.012 Cellulitis of left finger (principal); I10 Essential (primary) hypertension; K21.9 Gastro-esophageal reflux disease without esophagitis
CPT/HCPCS: 99283; A9270-GY

== ENCOUNTER 2021-11-26 05:35 | Emergency (ER) | payer OTHER ==
[2021-11-26] MEDS ORDERED: Zofran 4 MG/2 ML VIAL ONE (05:59)
[2021-11-26] MEDS ORDERED: Sodium Chloride 0.9% 1000 ML 1,000 ML ONE (05:59)
[2021-11-26] MEDS ORDERED: Sodium Chloride 0.9% 1000 ML 1,000 ML IV STA (06:00)
[2021-11-26] MEDS ORDERED: Zofran 4 MG/2 ML VIAL IV ONE (06:00)
[2021-11-26 06:12] VITALS: PULSE 100
[2021-11-26 06:19] LABS: Basophil (Absolute #) 0.01 (0-0.4); Eosinophil % 1.3 % (0.00-5.0); Eosinophil (Absolute #) 0.11 (0-0.5); Hematocrit 44.8 % (42-50); Lymphocyte (Absolute #) 0.52 (1.0-4.6); Lymphocytes % 6.2 % (24.0-44.0); Mean Corpuscular Hemoglobin 28.5 pg (26-32); Mean Corpuscular Hgb Concent. 33.5 g/dl (32-36); Mean Platelet Volume 11.5 fl (7.5-11.0); Monocyte (Absolute #) 0.49 (0.0-1.3); Monocytes % 5.9 % (0.0-12.0); Neutrophil % 86.5 % (36.0-66.0); Platelet Count 220 K/mm3 (150-450); Red Blood Count 5.27 M/mm3 (4.1-5.6); Red Cell Distribution Width 13.7 % (11.5-14.0); White Blood Count 8.3 K/mm3 (4.0-10.5)
[2021-11-26 06:32] LABS: ALBUMIN 4.3 g/dL (3.5-5.0); ALKALINE PHOSPHATASE 88 U/L (38-126); ANION GAP 16.6 MEQ/L (5-15); BLOOD UREA NITROGEN 18 mg/dL (9-20); CHLORIDE 101 mmol/L (98-107); Carbon Dioxide 24 mmol/L (22-30); Creatinine 1 0.91 mg/dL (0.66-1.25); EST GLOMERULAR FILTRATION RATE > 60.0 ML/MIN; Glucose 122 mg/dL (74-106); Potassium 4.2 mmol/L (3.5-5.1); SGOT/AST 29 U/L (17-59); SGPT/ALT 28 U/L (0-50); SODIUM 137 mmol/L (137-145); Total Protein 7.2 g/dL (6.3-8.2)
[2021-11-26 06:33] LABS: AMYLASE 51 U/L (30-110)
[2021-11-26 06:34] LABS: LIPASE 93 U/L (23-300); Slide Review 1 YES
--- NOTE | 2021-11-26 06:41 | ERPHSYRPT ---
- History of Present Illness Historian: patient Exam Limitations: no limitations Patient Subjective Stated Complaint: anxiety attack, then began vomiting. Triage Nursing Assessment: pt had an anxiety attack last evening due to unable to get his pristiq until next , then began vomiting. Pt states, "I've vomited 6-7 times since then everytime I try to eat or drink something". c/o abd being sore from vomiting. Abd grossly obese with active bsx4 quad, nontender. Pt states, "I'm having diarrhea each time I vomit". Timing/Duration: today Activities at Onset: none Quality: other (No abdominal pain no abdominal pain) Abdominal Pain Onset Location: other Pain Radiation: no radiation Severity of Pain-Max: none Severity of Pain-Current: none Modifying Factors: Improves With: vomiting Associated Symptoms: nausea, vomiting Previous symptoms: no prior history Hx Tetanus, Diphtheria Vaccination/Date Given: Yes Hx Influenza Vaccination/Date Given: No Hx Pneumococcal Vaccination/Date Given: No Immunizations Up to Date: Yes - History of Present Illness Time Seen by Provider: 11/26/21 05:55 Physician History: This morning, this morbidly obese 26-year-old white male patient of Dr. Flores was having a panic attack and then began vomiting. He has done this in the past. The vomiting, he states he is sure, is secondary to the panic attacks. He states that he is extremely anxious and have the attack because he found out that he cannot refill his Pristiq medication till next . He is out of that medication. This morning, he vomited 6 or 7 times. Every time he tried to eat or drink something. Patient has a history of PTSD, panic attacks, migraine headaches, seizures, hypertension, sleep apnea. He has no chest pain. He is not short of breath and he has no abdominal pain. He does state that when he vomits he did pass liquid stool. (DARRIUS ZAPATA) Allergies/Adverse Reactions: No Known Drug Allergies Allergy (Verified 11/26/21 05:52) Home Medications: Aspirin EC 325 mg [Ecotrin 325 MG] 325 mg PO DAILY 07/15/19 [History] Gabapentin 600 mg PO TID 07/15/19 [History] Desvenlafaxine Succinate [Desvenlafaxine Succinate ER] 100 mg PO DAILY 02/19/20 [History] Omeprazole 40 mg PO DAILY 02/19/20 [History] Ziprasidone HCl [Geodon] 80 mg PO BID 04/15/20 [History] [place]-3 Fatty Acids/Fish Oil [Fish Oil 1,000 mg Capsule] 1 each PO DAILY 03/05/21 [History] Calcium Carb,Gluc/Mag Ox,Gluc [Calcium Magnesium Caplet] 1 each PO DAILY 04/16/21 [History] Sildenafil Citrate [Viagra] 50 mg PO DAILY PRN PRN 04/16/21 [History] Travel Risk - International Travel Have you traveled outside of the country in past 3 weeks: No - Coronavirus Screening Are you exhibiting any of the following symptoms?: Yes Symptoms: Cough: New Onset, Vomiting/Diarrhea, Headaches/Body Aches/Fatigue - Vaccine Status Have you recieved a Covid-19 vaccination: Yes 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 - Review of Systems Constitutional: Weakness Eyes: No Symptoms Ears, Nose, & Throat: No Symptoms Respiratory: Cough Cardiac: No Symptoms Abdominal/Gastrointestinal: Nausea, Vomiting, Diarrhea Genitourinary Symptoms: No Symptoms Musculoskeletal: Arthralgias, Myalgias Skin: No Symptoms Neurological: No Symptoms Psychological: No Symptoms Endocrine: No Symptoms Hematologic/Lymphatic: No Symptoms Immunological/Allergic: No Symptoms All Other Systems: Reviewed and Negative - Past Medical History Pertinent Past Medical History: Yes Neurological History: Migraines, Seizures ENT History: No Pertinent History Cardiac History: Hypertension Respiratory History: Asthma, Sleep Apnea Endocrine Medical History: No Pertinent History Musculoskeletal History: Other GI Medical History: GERD, Gallbladder Disease, Other History: No Pertinent History Psycho-Social History: Anxiety, Bipolar, Depression, Other Male Reproductive Disorders: No Pertinent History Other Medical History: Occular Migraines, 1 heat seizure in 2009, Hx of HTN , Acid Reflux, Personality Disorder, Right Ankle torn Tendon and ligament (2000), PTSD, suicidal tendencies - Past Surgical History Past Surgical History: Yes Neuro Surgical History: No Pertinent History Cardiac: No Pertinent History Respiratory: No Pertinent History Gastrointestinal: Cholecystectomy Genitourinary: No Pertinent History Musculoskeletal: Other Male Surgical History: No Pertinent History Other Surgical History: 2000 Right Ankle tendon and ligament repair - Social History Smoking Status: Never smoker Exposure to second hand smoke: No Drug Use: none Patient Lives Alone: No Significant Family History: no pertinent family hx - Physical Exam General Appearance: no apparent distress, alert, anxiety, obese Eye Exam: PERRL/EOMI, eyes nml inspection Ears, Nose, Throat Exam: normal ENT inspection, moist mucous membranes Neck Exam: normal inspection, non-tender, supple, full range of motion Respiratory Exam: normal breath sounds, lungs clear, airway intact, No chest tenderness, No respiratory distress Cardiovascular Exam: regular rate/rhythm, normal heart sounds, normal peripheral pulses Gastrointestinal/Abdomen Exam: soft, normal bowel sounds, No tenderness Rectal Exam: not done Back Exam: normal inspection, normal range of motion, No CVA tenderness, No vertebral tenderness Extremity Exam: normal inspection, normal range of motion, pelvis stable Neurologic Exam: alert, oriented x 3, cooperative, 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, normal mood/affect, nml cerebellar function, nml station & gait, sensation nml Skin Exam: normal color, warm, dry Lymphatic Exam: No adenopathy SpO2 Interpretation: borderline oxygenation SpO2: 95 O2 Delivery: Room Air - Nursing Vital Signs Nursing Vital Signs: Initial Vital Signs Temperature 98.7 F 11/26/21 05:41 Pulse Rate 105 H 11/26/21 05:41 Respiratory Rate 18 11/26/21 05:41 Blood Pressure 91/79 11/26/21 05:41 O2 Sat by Pulse Oximetry 95 11/26/21 05:41 Pain Scale Pain Intensity 0 Ordered Tests: Active Orders 24 hr Category Date Time Status AMYLASE Stat Lab 11/26/21 05:58 Completed CBC W DIFF Stat Lab 11/26/21 05:58 Completed CMP Stat Lab 11/26/21 05:58 Completed COVID AG-BINAX NOW RAPID TEST Stat Lab 11/26/21 06:57 Received INFLUENZA A+B NERI Stat Lab 11/26/21 06:57 Received LIPASE Stat Lab 11/26/21 05:58 Completed Lactic Acid Stat Lab 11/26/21 07:05 Completed [place] Screen Stat Lab 11/26/21 05:58 Completed UA W/RFX UR CULTURE Stat Lab 11/26/21 06:02 Ordered Medication Summary Discontinued Medications Generic Name Dose Route Start Last Admin Trade Name Freq PRN Reason Stop Dose Admin Sodium Chloride 1,000 mls @ 999 mls/hr 11/26/21 06:00 11/26/21 06:05 Sodium Chloride 0.9% 1000 Ml IV 11/26/21 07:00 999 mls/hr .Q1H1M STA Administration Sodium Chloride Confirm 11/26/21 05:59 Sodium Chloride 0.9% 1000 Ml Administered 11/26/21 06:00 Dose 1,000 mls @ ud .ROUTE .STK-MED ONE Lorazepam 1 mg 11/26/21 06:50 11/26/21 06:55 Lorazepam 2 Mg/1 Ml 2 Mg Vial IV 11/26/21 06:51 1 mg STAT ONE Administration Lorazepam Confirm 11/26/21 06:54 Lorazepam 2 Mg/1 Ml 2 Mg Vial Administered 11/26/21 06:55 Dose 2 mg .ROUTE .STK-MED ONE Ondansetron HCl 4 mg 11/26/21 06:00 11/26/21 06:05 Ondansetron Hcl 4 Mg/2 Ml Vial IV 11/26/21 06:01 4 mg STAT ONE Administration Ondansetron HCl Confirm 11/26/21 05:59 Ondansetron Hcl 4 Mg/2 Ml Vial Administered 11/26/21 06:00 Dose 4 mg .ROUTE .STK-MED ONE Lab/Rad Data: Laboratory Result Diagrams 11/26/21 05:58 11/26/21 05:58 Laboratory Results 11/26/21 11/26/21 11/26/21 Range/Units 07:05 05:58 05:58 WBC (4.0-10.5) K/mm3 RBC (4.1-5.6) M/mm3 Hgb (12.5-18.0) gm/dl Hct (42-50) % MCV (78-100) fl MCH (26-32) pg MCHC (32-36) g/dl RDW (11.5-14.0) % Plt Count (150-450) K/mm3 MPV (7.5-11.0) fl Gran % (36.0-66.0) % Eos # (Auto) (0-0.5) Absolute Lymphs (auto) (1.0-4.6) Absolute Monos (auto) (0.0-1.3) Lymphocytes % (24.0-44.0) % Monocytes % (0.0-12.0) % Eosinophils % (0.00-5.0) % Basophils % (0.0-0.4) % Absolute Granulocytes (1.4-6.9) Basophils # (0-0.4) Sodium (137-145) mmol/L Potassium (3.5-5.1) mmol/L Chloride (98-107) mmol/L Carbon Dioxide (22-30) mmol/L Anion Gap (5-15) MEQ/L BUN (9-20) mg/dL Creatinine (0.66-1.25) mg/dL Estimated GFR ML/MIN Glucose (74-106) mg/dL Lactic Acid 2.0 (0.4-2.0) Calcium (8.4-10.2) mg/dL Total Bilirubin (0.2-1.3) mg/dL AST (17-59) U/L ALT (0-50) U/L Alkaline Phosphatase (38-126) U/L Serum Total Protein (6.3-8.2) g/dL Albumin (3.5-5.0) g/dL Amylase 51 (30-110) U/L Lipase 93 (23-300) U/L Monoscreen NEGATIVE (Negative) Slides for Path Review 11/26/21 11/26/21 Range/Units 05:58 05:58 WBC 8.3 (4.0-10.5) K/mm3 RBC 5.27 (4.1-5.6) M/mm3 Hgb 15.0 (12.5-18.0) gm/dl Hct 44.8 (42-50) % MCV 85.0 (78-100) fl MCH 28.5 (26-32) pg MCHC 33.5 (32-36) g/dl RDW 13.7 (11.5-14.0) % Plt Count 220 (150-450) K/mm3 MPV 11.5 H (7.5-11.0) fl Gran % 86.5 H (36.0-66.0) % Eos # (Auto) 0.11 (0-0.5) Absolute Lymphs (auto) 0.52 L (1.0-4.6) Absolute Monos (auto) 0.49 (0.0-1.3) Lymphocytes % 6.2 L (24.0-44.0) % Monocytes % 5.9 (0.0-12.0) % Eosinophils % 1.3 (0.00-5.0) % Basophils % 0.1 (0.0-0.4) % Absolute Granulocytes 7.20 H (1.4-6.9) Basophils # 0.01 (0-0.4) Sodium 137 (137-145) mmol/L Potassium 4.2 (3.5-5.1) mmol/L Chloride 101 (98-107) mmol/L Carbon Dioxide 24 (22-30) mmol/L Anion Gap 16.6 H (5-15) MEQ/L BUN 18 (9-20) mg/dL Creatinine 0.91 (0.66-1.25) mg/dL Estimated GFR > 60.0 ML/MIN Glucose 122 H (74-106) mg/dL Lactic Acid (0.4-2.0) Calcium 9.0 (8.4-10.2) mg/dL Total Bilirubin 0.80 (0.2-1.3) mg/dL AST 29 (17-59) U/L ALT 28 (0-50) U/L Alkaline Phosphatase 88 (38-126) U/L Serum Total Protein 7.2 (6.3-8.2) g/dL Albumin 4.3 (3.5-5.0) g/dL Amylase (30-110) U/L Lipase (23-300) U/L Monoscreen (Negative) Slides for Path Review YES - Progress Progress: improved Counseled pt/family regarding: lab results, diagnosis, need for follow-up - Progress Progress Note: 11/26/21 06:46 This patient is being signed out to at shift change. He will follow up on pending lab results and make final disposition. (DARRIUS ZAPATA) - Departure Departure Disposition: Home Critical Care Time: No - Departure Clinical Impression: Panic attack as reaction to stress Vomiting Qualifiers: Vomiting type: unspecified Nausea presence: without nausea Qualified Code(s): R11.11 - Vomiting without nausea Condition: Stable Referrals: LOULOU FLORES [Primary Care Provider] - Follow up/PCP as directed Additional Instructions: Take your antinausea medicine half hour before eating or drinking anything. Call your prescribing physicians tomorrow morning for further evaluation and management. Forms: Work/School Release Form Prescriptions: Bupropion HCl Xl 150 mg [Wellbutrin XL 150 MG] 150 mg PO DAILY #30 tablet
[2021-11-26] MEDS ORDERED: Ativan 2 MG/1 ML VIAL IV ONE (06:50)
[2021-11-26] MEDS ORDERED: Ativan 2 MG/1 ML VIAL ONE (06:54)
[2021-11-26 07:19] VITALS: BP 99/66; O2SAT 98
[2021-11-26 07:21] LABS: COVID AG -BINAX NOW RAPID TEST NEGATIVE (NEGATIVE); INFLUENZA A NEGATIVE (NEGATIVE); INFLUENZA B NEGATIVE (NEGATIVE)
== END 2021-11-26 07:30 | disposition home or self-care (01) ==
LOC: ED 05:35
DX: F43.0 Acute stress reaction (principal); R11.11 Vomiting without nausea; I10 Essential (primary) hypertension; K21.9 Gastro-esophageal reflux disease without esophagitis; F41.9 Anxiety disorder, unspecified; F60.9 Personality disorder, unspecified; F31.9 Bipolar disorder, unspecified; Z79.899 Other long term (current) drug therapy; E66.01 Morbid (severe) obesity due to excess calories
CPT/HCPCS: 36000; 36415; 80053; 82150; 83605; 83690; 85025; 86308; 87400; 96374; 96375; 99000; 99284; J2060; J2405

== ENCOUNTER 2022-04-16 06:16 | Emergency (ER) | payer OTHER ==
[2022-04-16] MEDS ORDERED: Zofran 4 MG/2 ML VIAL IV ONE (06:38)
[2022-04-16] MEDS ORDERED: Sodium Chloride 0.9% 1000 ML 1,000 ML IV STA (06:38)
[2022-04-16] MEDS ORDERED: MORPHINE SULFATE 4 MG INJ IV ONE ×2 (06:38→07:33)
--- NOTE | 2022-04-16 06:42 | ERPHSYRPT ---
- History of Present Illness Historian: patient Exam Limitations: no limitations Patient Subjective Stated Complaint: pt states he has been having pain in his abd since yesterday. states pain has been getting worse this morning. describes pain as stabbing, rates 05/16 Triage Nursing Assessment: pt alert and oriented, answers questions approp. pt ambulatory with steady gait noted. respirations nonlabored. skin warm and dry. abd soft. pt reports tenderness with palpation. bowel sounds present x4. Timing/Duration: day(s) (2), gradual onset, worse Activities at Onset: rest Quality: cramping, sharpness Abdominal Pain Onset Location: RUQ, LUQ, epigastric Pain Radiation: no radiation Severity of Pain-Max: severe Severity of Pain-Current: moderate Modifying Factors: Improves With: nothing Associated Symptoms: diarrhea, nausea Hx Tetanus, Diphtheria Vaccination/Date Given: Yes Hx Influenza Vaccination/Date Given: No Hx Pneumococcal Vaccination/Date Given: No Immunizations Up to Date: Yes <SOURAV MIDDLETON - Last Filed: 04/16/22 06:40> <URIEL BEAR - Last Filed: 04/16/22 08:27> - History of Present Illness Time Seen by Provider: 04/16/22 06:18 Physician History: 27 years old morbidly obese male presented in the ER with chief complaint of upper abdominal pain for the last 2 days, dull sharp to cramping moderate to severe intensity without any significant aggravating or relieving factors, associated with nausea and diarrhea. Patient does have chronic diarrhea which is not any different than usual. Has taken [id number] pain medication with no significant relief. No fever or chills reported. Denies any sick contact. (SOURAV MIDDLETON) Allergies/Adverse Reactions: No Known Drug Allergies Allergy (Verified 04/16/22 06:32) Home Medications: Aspirin EC 325 mg [Ecotrin 325 MG] 325 mg PO DAILY 07/15/19 [History] Gabapentin 600 mg PO TID 07/15/19 [History] Desvenlafaxine Succinate [Desvenlafaxine Succinate ER] 100 mg PO DAILY 02/19/20 [History] Omeprazole 40 mg PO DAILY 02/19/20 [History] Ziprasidone HCl [Geodon] 80 mg PO BID 04/15/20 [History] [place]-3 Fatty Acids/Fish Oil [Fish Oil 1,000 mg Capsule] 1 each PO DAILY 03/05/21 [History] Calcium Carb,Gluc/Mag Ox,Gluc [Calcium Magnesium Caplet] 1 each PO DAILY 04/16/21 [History] Sildenafil Citrate [Viagra] 50 mg PO DAILY PRN PRN 04/16/21 [History] Buspirone HCl 5 mg [Buspar 5 mg] 5 mg PO HS 04/16/22 [History] Trazodone HCl 50 mg [Desyrel 50 mg] 50 mg PO HS 04/16/22 [History] Travel Risk - International Travel Have you traveled outside of the country in past 3 weeks: No - Coronavirus Screening Are you exhibiting any of the following symptoms?: No Close contact with a COVID-19 positive Pt in past 14-21 Days: No - Vaccine Status Have you recieved a Covid-19 vaccination: Yes [employer]umber [employer]: [place] - Vaccination Dates Date of 2cond Vaccination (if applicable): 10/09/21 <SOURAV MIDDLETON - Last Filed: 04/16/22 06:40> - Review of Systems Constitutional: No Symptoms Eyes: No Symptoms Ears, Nose, & Throat: No Symptoms Respiratory: No Symptoms Cardiac: No Symptoms Abdominal/Gastrointestinal: Abdominal Pain, Nausea, Diarrhea Genitourinary Symptoms: No Symptoms Musculoskeletal: Arthralgias Skin: No Symptoms Neurological: No Symptoms Psychological: Anxiety, Depression Endocrine: No Symptoms Hematologic/Lymphatic: No Symptoms Immunological/Allergic: No Symptoms <SOURAV MIDDLETON - Last Filed: 04/16/22 06:40> - Past Medical History Pertinent Past Medical History: Yes Neurological History: Migraines, Seizures ENT History: No Pertinent History Cardiac History: Hypertension Respiratory History: Asthma, Sleep Apnea Endocrine Medical History: No Pertinent History Musculoskeletal History: Other GI Medical History: GERD, Gallbladder Disease, Other History: No Pertinent History Psycho-Social History: Anxiety, Bipolar, Depression, Other Male Reproductive Disorders: No Pertinent History Other Medical History: Occular Migraines, 1 heat seizure in 2009, Hx of HTN , Acid Reflux, Personality Disorder, Right Ankle torn Tendon and ligament (2000), PTSD, suicidal tendencies - Past Surgical History Past Surgical History: Yes Neuro Surgical History: No Pertinent History Cardiac: No Pertinent History Respiratory: No Pertinent History Gastrointestinal: Cholecystectomy Genitourinary: No Pertinent History Musculoskeletal: Other Male Surgical History: No Pertinent History Other Surgical History: 2000 Right Ankle tendon and ligament repair - Social History Smoking Status: Never smoker Exposure to second hand smoke: No Drug Use: none Patient Lives Alone: No Significant Family History: no pertinent family hx <KANESOURAV - Last Filed: 04/16/22 06:40> - Physical Exam General Appearance: no apparent distress, alert Eye Exam: PERRL/EOMI Ears, Nose, Throat Exam: normal ENT inspection Neck Exam: normal inspection, full range of motion Respiratory Exam: normal breath sounds, lungs clear Cardiovascular Exam: regular rate/rhythm, normal heart sounds Gastrointestinal/Abdomen Exam: soft, normal bowel sounds, tenderness (Upper abdomen), guarding Back Exam: normal inspection Extremity Exam: normal inspection, normal range of motion Neurologic Exam: alert, oriented x 3, cooperative Skin Exam: normal color SpO2 Interpretation: normal SpO2: 97 O2 Delivery: Room Air <SOURAV MIDDLETON - Last Filed: 04/16/22 06:40> - Nursing Vital Signs Nursing Vital Signs: Initial Vital Signs Temperature 97.6 F 04/16/22 06:21 Pulse Rate 71 04/16/22 06:21 Respiratory Rate 18 04/16/22 06:21 Blood Pressure 152/81 04/16/22 06:21 O2 Sat by Pulse Oximetry 97 04/16/22 06:21 Pain Scale Pain Intensity 5 - Course Nursing assessment & vital signs reviewed: Yes EKG Interpreted by Me: RATE (68), Sinus Rhythm, NORMAL AXIS, NORMAL INTERVALS - CT Exams Abdomen/Pelvis CT Interpretation: Tele-radiologist Report (Compared to 02/03/2020 new small fatty umbilical hernia with 3.5 cm cyst. Stable fatty hepatomegaly and sple nomegaly. Remaining abdomen pelvis negative) <URIEL BEAR - Last Filed: 04/16/22 08:27> Ordered Tests: Active Orders 24 hr Category Date Time Status EKG-ER Only STAT Care 04/16/22 07:38 Active IV Insertion STAT Care 04/16/22 06:38 Active NPO (ED) STAT Care 04/16/22 06:38 Active ABDOMEN AND PELVIS W/0 CONTRAS [CT] Stat Exams 04/16/22 06:38 Taken CBC W DIFF Stat Lab 04/16/22 06:36 Completed CMP Stat Lab 04/16/22 06:36 Completed LIPASE Stat Lab 04/16/22 06:36 Completed TROPONIN Q3H Lab 04/16/22 07:45 Completed TROPONIN Q3H Lab 04/16/22 10:45 Ordered TROPONIN Q3H Lab 04/16/22 13:45 Ordered TROPONIN Q3H Lab 04/16/22 16:45 Ordered TROPONIN Q3H Lab 04/16/22 19:45 Ordered UA W/RFX CULTURE Stat Lab 04/16/22 07:17 Completed Medication Summary Discontinued Medications Generic Name Dose Route Start Last Admin Trade Name Nancy PRN Reason Stop Dose Admin Al Hydrox/Mg Hydrox/Simethicone Confirm 04/16/22 07:38 Mag Hydrox/Al Hydrox/Simeth 30 Ml Udcup Administered 04/16/22 07:39 Dose 30 ml .ROUTE .STK-MED ONE Sodium Chloride 1,000 mls @ 999 mls/hr 04/16/22 06:38 04/16/22 08:15 Sodium Chloride 0.9% 1000 Ml IV 04/16/22 07:38 Infused .Q1H1M STA Infusion Sodium Chloride Confirm 04/16/22 06:43 Sodium Chloride 0.9% 1000 Ml Administered 04/16/22 06:44 Dose 1,000 mls @ ud .ROUTE .STK-MED ONE Lidocaine HCl Confirm 04/16/22 07:37 Lidocaine Hcl 2% Viscous 15 Ml Udcup Administered 04/16/22 07:38 Dose 15 ml .ROUTE .STK-MED ONE Magnesium Hydroxide 45 ml 04/16/22 07:32 04/16/22 07:40 Mag Hydrx/Alum Hyd/Simeth/Lido 45 Ml Bottle PO 04/16/22 07:33 45 ml STAT ONE Administration Morphine Sulfate 4 mg 04/16/22 06:38 04/16/22 06:45 Morphine Sulfate 4 Mg/Ml Injection IV 04/16/22 06:39 4 mg STAT ONE Administration Morphine Sulfate Confirm 04/16/22 06:43 Morphine Sulfate 4 Mg/Ml Injection Administered 04/16/22 06:44 Dose 4 mg .ROUTE .STK-MED ONE Morphine Sulfate 4 mg 04/16/22 07:33 04/16/22 07:39 Morphine Sulfate 4 Mg/Ml Injection IV 04/16/22 07:34 4 mg STAT ONE Administration Morphine Sulfate Confirm 04/16/22 07:37 Morphine Sulfate 4 Mg/Ml Injection Administered 04/16/22 07:38 Dose 4 mg .ROUTE .STK-MED ONE Ondansetron HCl 4 mg 04/16/22 06:38 04/16/22 06:45 Ondansetron Hcl 4 Mg/2 Ml Vial IV 04/16/22 06:39 4 mg STAT ONE Administration Ondansetron HCl Confirm 04/16/22 06:43 Ondansetron Hcl 4 Mg/2 Ml Vial Administered 04/16/22 06:44 Dose 4 mg .ROUTE .STK-MED ONE Pantoprazole Sodium 40 mg 04/16/22 07:33 04/16/22 07:39 Pantoprazole 40 Mg Vial IV 04/16/22 07:34 40 mg STAT ONE Administration Pantoprazole Sodium Confirm 04/16/22 07:37 Pantoprazole 40 Mg Vial Administered 04/16/22 07:38 Dose 40 mg IV .STK-MED ONE Lab/Rad Data: Laboratory Result Diagrams 04/16/22 06:36 04/16/22 06:36 Laboratory Results 04/16/22 04/16/22 04/16/22 Range/Units 07:45 07:17 06:36 WBC (4.0-10.5) x10^3/uL RBC (4.1-5.6) x10^6/uL Hgb (12.5-18.0) g/dL Hct (42-50) % MCV (78-100) fL MCH (26-32) pg MCHC (32-36) g/dL RDW (11.5-14.0) % Plt Count (150-450) x10^3/uL MPV (7.5-11.0) fL Gran % (36.0-66.0) % Immature Gran % (Auto) (0.00-0.4) % Nucleat RBC Rel Count (0.00-0.1) % Eos # (Auto) (0-0.5) x10^3/uL Immature Gran # (Auto) (0.00-0.03) x10^3u/L Absolute Lymphs (auto) (1.0-4.6) x10^3/uL Absolute Monos (auto) (0.0-1.3) x10^3/uL Absolute Nucleated RBC (0.00-0.01) x10^3u/L Lymphocytes % (24.0-44.0) % Monocytes % (0.0-12.0) % Eosinophils % (0.00-5.0) % Basophils % (0.0-0.4) % Absolute Granulocytes (1.4-6.9) x10^3/uL Basophils # (0-0.4) x10^3/uL Sodium 138 (137-145) mmol/L Potassium 4.0 (3.5-5.1) mmol/L Chloride 104 (98-107) mmol/L Carbon Dioxide 27 (22-30) mmol/L Anion Gap 10.6 (5-15) MEQ/L BUN 17 (9-20) mg/dL Creatinine 0.85 (0.66-1.25) mg/dL Estimated GFR > 60.0 ML/MIN Glucose 106 (74-106) mg/dL Calcium 8.9 (8.4-10.2) mg/dL Total Bilirubin 0.40 (0.2-1.3) mg/dL AST 23 (17-59) U/L ALT 21 (0-50) U/L Alkaline Phosphatase 92 (38-126) U/L Troponin I < 0.012 (0.000-0.034) ng/mL Serum Total Protein 6.8 (6.3-8.2) g/dL Albumin 3.6 (3.5-5.0) g/dL Lipase 97 (23-300) U/L Urinalys Dipstick Clnc MAIN LAB Urine Color YELLOW (YELLOW) Urine Appearance CLEAR (CLEAR) Urine pH 6.5 (5-6) Ur Specific Wake >=1.030 (1.005-1.025) POC Urine Protein Conf NEGATIVE (Negative) Urine Ketones NEGATIVE (NEGATIVE) Urine Nitrite NEGATIVE (NEGATIVE) Urine Bilirubin NEGATIVE (NEGATIVE) Urine Urobilinogen 0.2 (0-1) mg/dL Urine Leukocytes NEGATIVE (NEGATIVE) Urine WBC (Auto) 0-2 (0-5) /HPF Urine RBC (Auto) NONE (0-2) /HPF U Epithel Cells (Auto) NONE (FEW) /HPF Urine Bacteria (Auto) NONE SEEN (NEGATIVE) /HPF Urine RBC NEGATIVE (0-5) Natanael/ul Ur Culture Indicated? NO Urine Glucose NEGATIVE (NEGATIVE) mg/dL 04/16/22 Range/Units 06:36 WBC 8.5 (4.0-10.5) x10^3/uL RBC 4.92 (4.1-5.6) x10^6/uL Hgb 13.6 (12.5-18.0) g/dL Hct 41.5 L (42-50) % MCV 84.3 (78-100) fL MCH 27.6 (26-32) pg MCHC 32.8 (32-36) g/dL RDW 13.2 (11.5-14.0) % Plt Count 238 (150-450) x10^3/uL MPV 11.0 (7.5-11.0) fL Gran % 60.4 (36.0-66.0) % Immature Gran % (Auto) 0.4 (0.00-0.4) % Nucleat RBC Rel Count 0.0 (0.00-0.1) % Eos # (Auto) 0.23 (0-0.5) x10^3/uL Immature Gran # (Auto) 0.03 (0.00-0.03) x10^3u/L Absolute Lymphs (auto) 2.38 (1.0-4.6) x10^3/uL Absolute Monos (auto) 0.67 (0.0-1.3) x10^3/uL Absolute Nucleated RBC 0.00 (0.00-0.01) x10^3u/L Lymphocytes % 28.1 (24.0-44.0) % Monocytes % 7.9 (0.0-12.0) % Eosinophils % 2.7 (0.00-5.0) % Basophils % 0.5 (0.0-0.4) % Absolute Granulocytes 5.13 (1.4-6.9) x10^3/uL Basophils # 0.04 (0-0.4) x10^3/uL Sodium (137-145) mmol/L Potassium (3.5-5.1) mmol/L Chloride (98-107) mmol/L Carbon Dioxide (22-30) mmol/L Anion Gap (5-15) MEQ/L BUN (9-20) mg/dL Creatinine (0.66-1.25) mg/dL Estimated GFR ML/MIN Glucose (74-106) mg/dL Calcium (8.4-10.2) mg/dL Total Bilirubin (0.2-1.3) mg/dL AST (17-59) U/L ALT (0-50) U/L Alkaline Phosphatase (38-126) U/L Troponin I (0.000-0.034) ng/mL Serum Total Protein (6.3-8.2) g/dL Albumin (3.5-5.0) g/dL Lipase (23-300) U/L Urinalys Dipstick Clnc Urine Color (YELLOW) Urine Appearance (CLEAR) Urine pH (5-6) Ur Specific [place] (1.005-1.025) POC Urine Protein Conf (Negative) Urine Ketones (NEGATIVE) Urine Nitrite (NEGATIVE) Urine Bilirubin (NEGATIVE) Urine Urobilinogen (0-1) mg/dL Urine Leukocytes (NEGATIVE) Urine WBC (Auto) (0-5) /HPF Urine RBC (Auto) (0-2) /HPF U Epithel Cells (Auto) (FEW) /HPF Urine Bacteria (Auto) (NEGATIVE) /HPF Urine RBC (0-5) Natanael/ul Ur Culture Indicated? Urine Glucose (NEGATIVE) mg/dL <SOURAV MIDDLETON - Last Filed: 04/16/22 06:40> - Progress Progress: improved Counseled pt/family regarding: lab results, diagnosis, need for follow-up, rad results <URIEL BEAR - Last Filed: 04/16/22 08:27> - Progress Progress Note: 04/16/22 06:57 Work-up is pending, care is transferred to Dr. Bear at shift change for reevaluation and final disposition. (SOURAV MIDDLETON) Patient endorsed to Dr. Bear at approximately [address] scan pending. Patient reassessed. He continues to experience epigastric pain after an initial dose of morphine and Zofran. Patient also received IV fluids. We will treat patient's pain with GI cocktail, a dose of Protonix and an additional dose of morphine. CT scan shows a small fatty umbilical hernia with a 3.5 cm cyst. Stable fatty hepatomegaly and splenomegaly. CAT scan otherwise negative. Laboratory work-up essentially nonremarkable. Lipase within normal limits. Patient states he has a history of GERD. Patient's pain could potentially be an esophagitis from GERD possible peptic ulcer either in the stomach or duodenum. We will add a screening troponin and EKG given patient's cardiovascular risk factors. 04/16/22 07:34 UA nonremarkable 04/16/22 07:48 Troponin negative. He states he is ready for discharge. We contacted Dr. Roberson's office and scheduled a follow-up appointment for our patient. Patient agrees to follow-up as planned. Patient may require an outpatient upper endoscopy in light of patient's history of GERD. Follow-up appointment is this at 1:15 PM. A prescription for Protonix was forwarded to patient's pharmacy. Portions of this note were created with voice recognition technology. There may be grammatical, spelling, punctuation or sound alike errors 04/16/22 08:22 (URIEL BEAR) <SOURAV MIDDLETON - Last Filed: 04/16/22 06:40> - Departure Departure Disposition: Home Critical Care Time: No <URIEL BEAR - Last Filed: 04/16/22 08:27> - Departure Clinical Impression: Splenomegaly, Hepatomegaly, Umbilical hernia with 3.5 cm cyst, Epigastric pain Condition: Stable Referrals: LOULOU ROBERSON [Primary Care Provider] - Follow up/PCP as directed Additional Instructions: Discharge/Care Plan RICHI OROZCO was seen on 04/16/22 in the Emergency Room. The patient was counseled regarding Diagnosis,Lab results, Imaging studies, need for follow up and when to return to the Emergency Room. Prescriptions given: Discharge Note I have spoken with the patient and/or caregivers. I have explained the patient's condition, diagnosis and treatment plan based on the information available to me at this time. I have answered the patient's and/or caregiver's questions and add ressed any concerns. The patient and/or caregivers have as good understanding of the patient's diagnosis, condition and treatment plan as can be expected at this point. The vital signs have been stable. The patient's condition is stable and appropriate for discharge from the emergency department. The patient will pursue further outpatient evaluation with the primary care physician or other designated or consulting physician as outlined in the discharge instructions. The patient and/or caregivers are agreeable to this plan of care and follow-up instructions have been explained in detail. The patient and/or caregivers have received these instruction. The patient/and or caregivers are aware that any significant change in condition or worsening of symptoms should prompt an immediate return to this or the closest emergency department or call 911. Forms: Work/School Release Form Prescriptions: PANTOPRAZOLE 40 mg Tablet [Protonix 40MG Tablet] 40 mg PO QAM 14 Days #14 tab
[2022-04-16] MEDS ORDERED: MORPHINE SULFATE 4 MG INJ ONE ×2 (06:43→07:37)
[2022-04-16] MEDS ORDERED: Zofran 4 MG/2 ML VIAL ONE (06:43)
[2022-04-16] MEDS ORDERED: Sodium Chloride 0.9% 1000 ML 1,000 ML ONE (06:43)
[2022-04-16 06:58] LABS: Absolute Neutrophil Ct (ANC) 5.13 x10^3/uL (1.4-6.9); Basophil (Absolute #) 0.04 x10^3/uL (0-0.4); Eosinophil % 2.7 % (0.00-5.0); Eosinophil (Absolute #) 0.23 x10^3/uL (0-0.5); Hematocrit 41.5 % (42-50); Hemoglobin 13.6 g/dL (12.5-18.0); Lymphocyte (Absolute #) 2.38 x10^3/uL (1.0-4.6); Lymphocytes % 28.1 % (24.0-44.0); Mean Cell Volume 84.3 fL (78-100); Mean Corpuscular Hemoglobin 27.6 pg (26-32); Mean Corpuscular Hgb Concent. 32.8 g/dL (32-36); Monocyte (Absolute #) 0.67 x10^3/uL (0.0-1.3); Monocytes % 7.9 % (0.0-12.0); Neutrophil % 60.4 % (36.0-66.0); Platelet Count 238 x10^3/uL (150-450); Red Blood Count 4.92 x10^6/uL (4.1-5.6); Red Cell Distribution Width 13.2 % (11.5-14.0); White Blood Count 8.5 x10^3/uL (4.0-10.5)
[2022-04-16 07:19] LABS: ALBUMIN 3.6 g/dL (3.5-5.0); ALKALINE PHOSPHATASE 92 U/L (38-126); ANION GAP 10.6 MEQ/L (5-15); BLOOD UREA NITROGEN 17 mg/dL (9-20); CHLORIDE 104 mmol/L (98-107); Calcium 8.9 mg/dL (8.4-10.2); Carbon Dioxide 27 mmol/L (22-30); Creatinine 1 0.85 mg/dL (0.66-1.25); EST GLOMERULAR FILTRATION RATE > 60.0 ML/MIN; Glucose 106 mg/dL (74-106); LIPASE 97 U/L (23-300); SGOT/AST 23 U/L (17-59); SGPT/ALT 21 U/L (0-50); SODIUM 138 mmol/L (137-145); Total Protein 6.8 g/dL (6.3-8.2)
[2022-04-16] MEDS ORDERED: GI COCKTAIL 45 ML (Maalox/Lidocaine) PO ONE (07:32)
[2022-04-16] MEDS ORDERED: PROTONIX 40 MG IV IV ONE ×2 (07:33→07:37)
[2022-04-16] MEDS ORDERED: XYLOCAINE VISCOUS 2% 15 ML CUP ONE (07:37)
[2022-04-16] MEDS ORDERED: MAALOX ES 30 ML UNIT DOSE ONE (07:38)
[2022-04-16 07:42] LABS: WBC 0-2 /HPF (0-5)
[2022-04-16 07:43] LABS: Appearance CLEAR (CLEAR); Bilirubin NEGATIVE (NEGATIVE); Dipstick done @ ? MAIN LAB; Glucose NEGATIVE (NEGATIVE); Ketones NEGATIVE (NEGATIVE); Nitrite NEGATIVE (NEGATIVE); Ph 6.5 (5-6); Protein,Urine Dip NEGATIVE (Negative); RBC NEGATIVE Ery/ul (0-5); Specific Gravity >=1.030 (1.005-1.025); Urobilinogen 0.2 mg/dL (0-1)
[2022-04-16 07:44] LABS: Bacteria NONE SEEN /HPF (NEGATIVE); Urine Cultured Indicated? NO
[2022-04-16 07:49] VITALS: BP 148/74; O2SAT 96
[2022-04-16 08:44] VITALS: PULSE 70
--- NOTE | 2022-04-16 08:56 | XRAY ---
Indication: General abdomen pain 2 days. Multiple contiguous axial images obtained through the abdomen and pelvis without contrast. Comparison: February 03, 2020 Lung bases remain clear. Heart not enlarged. Noncontrasted stomach and bowel loops nonobstructed again with normal appendix. Again 19.5 cm fatty hepatomegaly, 15.8 cm splenomegaly, and cholecystectomy. No free fluid/air. Remaining liver, pancreas, spleen, adrenal glands, kidneys, ureters, bladder, and aorta are unremarkable for noncontrast exam. Osseous structures intact. New small fatty umbilical hernia with 3.5 cm umbilical cyst. Impression: 1. New small fatty umbilical hernia with 3.5 cm cyst. 2. Again fatty hepatomegaly and splenomegaly. 3. Remaining CT abdomen/pelvis without contrast exam is negative.
== END 2022-04-16 08:45 | disposition home or self-care (01) ==
LOC: ED 06:16
DX: R16.2 Hepatomegaly with splenomegaly, not elsewhere classified (principal); K42.9 Umbilical hernia without obstruction or gangrene; R10.13 Epigastric pain; R11.0 Nausea; R19.7 Diarrhea, unspecified; I10 Essential (primary) hypertension; Z79.899 Other long term (current) drug therapy
CPT/HCPCS: 36000; 36415; 74176; 80053; 81015; 83690; 84484; 85025; 93005; 96360; 96374; 96375; 96376; 99284; J2270; J2405; A9270-GY

== ENCOUNTER 2022-04-17 15:36 | Emergency (ER) | payer OTHER ==
[2022-04-17] MEDS ORDERED: Reglan 10 MG/2 ML IV ONE (15:56)
[2022-04-17] MEDS ORDERED: SUBLIMAZE 100 MCG/2 ML IV ONE (15:56)
[2022-04-17] MEDS ORDERED: PROTONIX 40 MG IV IV ONE ×2 (15:56→16:04)
[2022-04-17] MEDS ORDERED: Sodium Chloride 0.9% 1000 ML 1,000 ML IV STA (15:56)
--- NOTE | 2022-04-17 16:03 | ERPHSYRPT ---
- History of Present Illness Time Seen by Provider: 04/17/22 15:50 Historian: patient, old records Exam Limitations: no limitations Patient Subjective Stated Complaint: C/O abdominal pain to entire abdomen. Location of pain is not consistent, patient states that pain moves from side to side and does not stay in one place. Denies any back pain. States he has been having pain for the past 3-4 days. Nasuea without vomiting causing decreased appetite. Triage Nursing Assessment: Patient ambulated back to ED without difficulties. No SOB. Patient is alert and oriented and answering questions appropriately. Abdomen is large and round but soft. Patient reports normal BM approx 20 minutes prior to coming to ED; denies diarrhea or constipation. Physician History: Patient is a 27-year-old white male who was seen in the ER yesterday evening or about 22 hours ago. At that time he was complaining of generalized abdominal pain he had an extensive work-up which was essentially negative. He has been having abdominal pain for 4 days mostly in the epigastric area but at times more generalized. He has been nauseated today after he tried to eat some crackers. He has had no fever chills or sweats he has not been vomiting he does have chronic diarrhea and has since the age of 10 when his gallbladder was removed. Initially he refused admission at his first visit but returns today saying that he should have stayed. Timing/Duration: day(s) (4) Activities at Onset: none Quality: cramping Abdominal Pain Onset Location: epigastric, generalized abdomen Severity of Pain-Max: moderate Severity of Pain-Current: moderate Modifying Factors: Improves With: nothing, eating Associated Symptoms: diarrhea, nausea Previous symptoms: same symptoms as today Allergies/Adverse Reactions: No Known Drug Allergies Allergy (Verified 04/17/22 15:41) Home Medications: Desvenlafaxine Succinate [Desvenlafaxine Succinate ER] 100 mg PO DAILY 02/19/20 [History] Omeprazole 40 mg PO BID 02/19/20 [History] Ziprasidone HCl [Geodon] 80 mg PO BID 04/15/20 [History] Trazodone HCl 50 mg [Desyrel 50 mg] 50 mg PO HS 04/16/22 [History] Benztropine Mesylate 1 tab PO HS 04/17/22 [History] hydrOXYzine pamoate [Vistaril] 1 tab PO TID 04/17/22 [History] Hx Tetanus, Diphtheria Vaccination/Date Given: Yes Hx Influenza Vaccination/Date Given: No Hx Pneumococcal Vaccination/Date Given: No Immunizations Up to Date: Yes Travel Risk - International Travel Have you traveled outside of the country in past 3 weeks: No - Coronavirus Screening Are you exhibiting any of the following symptoms?: No Close contact with a COVID-19 positive Pt in past 14-21 Days: No - Vaccine Status Have you recieved a Covid-19 vaccination: Yes 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[employer] - Vaccination Dates Date of 2cond Vaccination (if applicable): 10/09/21 - Review of Systems Constitutional: No Fever, No Chills Eyes: No Symptoms Ears, Nose, & Throat: No Symptoms Respiratory: No Cough, No Dyspnea Cardiac: No Chest Pain, No Edema, No Syncope Abdominal/Gastrointestinal: Abdominal Pain, Nausea, Diarrhea, No Vomiting Genitourinary Symptoms: No Dysuria Musculoskeletal: No Back Pain, No Neck Pain Skin: No Rash Neurological: No Dizziness, No Focal Weakness, No Sensory Changes Psychological: No Symptoms Endocrine: No Symptoms All Other Systems: Reviewed and Negative - Past Medical History Pertinent Past Medical History: Yes Neurological History: Migraines, Seizures ENT History: No Pertinent History Cardiac History: Hypertension Respiratory History: Asthma, Sleep Apnea Endocrine Medical History: No Pertinent History Musculoskeletal History: Other GI Medical History: GERD, Gallbladder Disease, Other History: No Pertinent History Psycho-Social History: Anxiety, Bipolar, Depression, Other Male Reproductive Disorders: No Pertinent History Other Medical History: Occular Migraines, 1 heat seizure in 2009, Hx of HTN , Acid Reflux, Personality Disorder, Right Ankle torn Tendon and ligament (2000), PTSD, suicidal tendencies - Past Surgical History Past Surgical History: Yes Neuro Surgical History: No Pertinent History Cardiac: No Pertinent History Respiratory: No Pertinent History Gastrointestinal: Cholecystectomy Genitourinary: No Pertinent History Musculoskeletal: Other Male Surgical History: No Pertinent History Other Surgical History: 2000 Right Ankle tendon and ligament repair - Social History Smoking Status: Never smoker Exposure to second hand smoke: No Drug Use: none Patient Lives Alone: No Significant Family History: no pertinent family hx - Nursing Vital Signs Nursing Vital Signs: Initial Vital Signs Temperature 98.2 F 04/17/22 15:41 Pulse Rate 76 04/17/22 15:41 Respiratory Rate 17 04/17/22 15:41 Blood Pressure 114/74 04/17/22 15:41 O2 Sat by Pulse Oximetry 92 L 04/17/22 15:41 Pain Scale Pain Intensity 9 - Physical Exam General Appearance: mild distress, alert Eye Exam: PERRL/EOMI, eyes nml inspection Ears, Nose, Throat Exam: normal ENT inspection, pharynx normal, moist mucous membranes Neck Exam: normal inspection, non-tender, supple, full range of motion Respiratory Exam: normal breath sounds, lungs clear, No respiratory distress Cardiovascular Exam: regular rate/rhythm, normal heart sounds Gastrointestinal/Abdomen Exam: soft, tenderness, No mass, No guarding, No reboun d Back Exam: normal inspection, normal range of motion, No CVA tenderness, No vertebral tenderness Extremity Exam: normal inspection, normal range of motion, pelvis stable Neurologic Exam: alert, oriented x 3, cooperative, normal mood/affect, nml cerebellar function, sensation nml, No motor deficits Skin Exam: normal color, warm, dry SpO2 Interpretation: normal SpO2: 92 O2 Delivery: Room Air - Course Nursing assessment & vital signs reviewed: Yes - CT Exams Abdomen/Pelvis CT Interpretation: Other (CT was unchanged other than a new fat-containing umbilical hernia) Ordered Tests: Active Orders 24 hr Category Date Time Status IV Insertion STAT Care 04/17/22 15:56 Active ABDOMEN AND PELVIS W/0 CONTRAS [CT] Routine Exams 04/17/22 16:31 Taken AMYLASE Stat Lab 04/17/22 16:00 Completed CBC W DIFF Stat Lab 04/17/22 16:00 Completed CMP Stat Lab 04/17/22 16:00 Completed LIPASE Stat Lab 04/17/22 16:00 Completed Lactic Acid Stat Lab 04/17/22 16:05 Completed UA W/RFX CULTURE Stat Lab 04/17/22 16:01 Completed Medication Summary Discontinued Medications Generic Name Dose Route Start Last Admin Trade Name Frejoey PRN Reason Stop Dose Admin Fentanyl Citrate 100 mcg 04/17/22 15:56 04/17/22 16:12 Fentanyl Citrate 100 Mcg/2 Ml* Vial IV 04/17/22 15:57 100 mcg STAT ONE Administration Fentanyl Citrate Confirm 04/17/22 16:05 Fentanyl Citrate 100 Mcg/2 Ml* Vial Administered 04/17/22 16:06 Dose 100 mcg .ROUTE .STK-MED ONE Sodium Chloride 1,000 mls @ 999 mls/hr 04/17/22 15:56 04/17/22 17:34 Sodium Chloride 0.9% 1000 Ml IV 04/17/22 16:56 Infused .Q1H1M STA Infusion Sodium Chloride Confirm 04/17/22 16:05 Sodium Chloride 0.9% 1000 Ml Administered 04/17/22 16:06 Dose 1,000 mls @ ud .ROUTE .STK-MED ONE Metoclopramide HCl 10 mg 04/17/22 15:56 04/17/22 16:11 Metoclopramide Hcl 10 Mg/2 Ml Vial IV 04/17/22 15:57 10 mg STAT ONE Administration Metoclopramide HCl Confirm 04/17/22 16:05 Metoclopramide Hcl 10 Mg/2 Ml Vial Administered 04/17/22 16:06 Dose 10 mg .ROUTE .STK-MED ONE Pantoprazole Sodium 40 mg 04/17/22 15:56 04/17/22 16:09 Pantoprazole 40 Mg Vial IV 04/17/22 15:57 40 mg STAT ONE Administration Pantoprazole Sodium Confirm 04/17/22 16:04 Pantoprazole 40 Mg Vial Administered 04/17/22 16:05 Dose 40 mg IV .STK-MED ONE Lab/Rad Data: Laboratory Result Diagrams 04/17/22 16:00 04/17/22 16:00 Laboratory Results 04/17/22 04/17/22 04/17/22 Range/Units 16:05 16:01 16:00 WBC (4.0-10.5) x10^3/uL RBC (4.1-5.6) x10^6/uL Hgb (12.5-18.0) g/dL Hct (42-50) % MCV (78-100) fL MCH (26-32) pg MCHC (32-36) g/dL RDW (11.5-14.0) % Plt Count (150-450) x10^3/uL MPV (7.5-11.0) fL Gran % (36.0-66.0) % Immature Gran % (Auto) (0.00-0.4) % Nucleat RBC Rel Count (0.00-0.1) % Eos # (Auto) (0-0.5) x10^3/uL Immature Gran # (Auto) (0.00-0.03) x10^3u/L Absolute Lymphs (auto) (1.0-4.6) x10^3/uL Absolute Monos (auto) (0.0-1.3) x10^3/uL Absolute Nucleated RBC (0.00-0.01) x10^3u/L Lymphocytes % (24.0-44.0) % Monocytes % (0.0-12.0) % Eosinophils % (0.00-5.0) % Basophils % (0.0-0.4) % Absolute Granulocytes (1.4-6.9) x10^3/uL Basophils # (0-0.4) x10^3/uL Sodium 140 (137-145) mmol/L Potassium 4.0 (3.5-5.1) mmol/L Chloride 99 (98-107) mmol/L Carbon Dioxide 31 H (22-30) mmol/L Anion Gap 13.5 (5-15) MEQ/L BUN 18 (9-20) mg/dL Creatinine 1.08 (0.66-1.25) mg/dL Estimated GFR > 60.0 ML/MIN Glucose 92 (74-106) mg/dL Lactic Acid 1.0 (0.4-2.0) Calcium 9.2 (8.4-10.2) mg/dL Total Bilirubin 0.60 (0.2-1.3) mg/dL AST 35 (17-59) U/L ALT 39 (0-50) U/L Alkaline Phosphatase 98 (38-126) U/L Serum Total Protein 7.8 (6.3-8.2) g/dL Albumin 4.1 (3.5-5.0) g/dL Amylase 64 (30-110) U/L Lipase 73 (23-300) U/L Urinalys Dipstick Clnc MAIN LAB Urine Color DARK YELLOW (YELLOW) Urine Appearance CLEAR (CLEAR) Urine pH 6.0 (5-6) Ur Specific English 1.025 (1.005-1.025) POC Urine Protein Conf NEGATIVE (Negative) Urine Ketones NEGATIVE (NEGATIVE) Urine Nitrite NEGATIVE (NEGATIVE) Urine Bilirubin SMALL (NEGATIVE) Urine Urobilinogen 0.2 (0-1) mg/dL Urine Leukocytes NEGATIVE (NEGATIVE) Urine WBC (Auto) 6-10 (0-5) /HPF Urine RBC (Auto) 3-5 (0-2) /HPF U Epithel Cells (Auto) NONE (FEW) /HPF Urine Bacteria (Auto) NONE SEEN (NEGATIVE) /HPF Urine RBC NEGATIVE (0-5) Natanael/ul Urine Mucus (Auto) SLIGHT (NEGATIVE) /HPF Ur Culture Indicated? NO Urine Glucose NEGATIVE (NEGATIVE) mg/dL 04/17/22 Range/Units 16:00 WBC 7.1 (4.0-10.5) x10^3/uL RBC 5.16 (4.1-5.6) x10^6/uL Hgb 14.4 (12.5-18.0) g/dL Hct 43.7 (42-50) % MCV 84.7 (78-100) fL MCH 27.9 (26-32) pg MCHC 33.0 (32-36) g/dL RDW 13.1 (11.5-14.0) % Plt Count 256 (150-450) x10^3/uL MPV 10.8 (7.5-11.0) fL Gran % 60.3 (36.0-66.0) % Immature Gran % (Auto) 0.4 (0.00-0.4) % Nucleat RBC Rel Count 0.0 (0.00-0.1) % Eos # (Auto) 0.16 (0-0.5) x10^3/uL Immature Gran # (Auto) 0.03 (0.00-0.03) x10^3u/L Absolute Lymphs (auto) 2.12 (1.0-4.6) x10^3/uL Absolute Monos (auto) 0.46 (0.0-1.3) x10^3/uL Absolute Nucleated RBC 0.00 (0.00-0.01) x10^3u/L Lymphocytes % 29.9 (24.0-44.0) % Monocytes % 6.5 (0.0-12.0) % Eosinophils % 2.3 (0.00-5.0) % Basophils % 0.6 (0.0-0.4) % Absolute Granulocytes 4.27 (1.4-6.9) x10^3/uL Basophils # 0.04 (0-0.4) x10^3/uL Sodium (137-145) mmol/L Potassium (3.5-5.1) mmol/L Chloride (98-107) mmol/L Carbon Dioxide (22-30) mmol/L Anion Gap (5-15) MEQ/L BUN (9-20) mg/dL Creatinine (0.66-1.25) mg/dL Estimated GFR ML/MIN Glucose (74-106) mg/dL Lactic Acid (0.4-2.0) Calcium (8.4-10.2) mg/dL Total Bilirubin (0.2-1.3) mg/dL AST (17-59) U/L ALT (0-50) U/L Alkaline Phosphatase (38-126) U/L Serum Total Protein (6.3-8.2) g/dL Albumin (3.5-5.0) g/dL Amylase (30-110) U/L Lipase (23-300) U/L Urinalys Dipstick Clnc Urine Color (YELLOW) Urine Appearance (CLEAR) Urine pH (5-6) Ur Specific English (1.005-1.025) POC Urine Protein Conf (Negative) Urine Ketones (NEGATIVE) Urine Nitrite (NEGATIVE) Urine Bilirubin (NEGATIVE) Urine Urobilinogen (0-1) mg/dL Urine Leukocytes (NEGATIVE) Urine WBC (Auto) (0-5) /HPF Urine RBC (Auto) (0-2) /HPF U Epithel Cells (Auto) (FEW) /HPF Urine Bacteria (Auto) (NEGATIVE) /HPF Urine RBC (0-5) Natanael/ul Urine Mucus (Auto) (NEGATIVE) /HPF Ur Culture Indicated? Urine Glucose (NEGATIVE) mg/dL - Progress Progress: improved - Departure Departure Disposition: Home Clinical Impression: Abdominal pain, Urinary tract infection, Postcholecystectomy diarrhea Condition: Stable Critical Care Time: No Referrals: LOULOU ROBERSON [Primary Care Provider] - Follow up/PCP as directed Instructions: Severe Abdominal Pain, Adult (DC) Prescriptions: Smz/Tmp Ds Tablet [Bactrim Ds Tablet] 20 udtab PO BID 10 Days #20 tablet Cholestyramine (with Sugar) [Questran Packet] 4 gm PO QID 10 Days #40 packet
[2022-04-17] MEDS ORDERED: SUBLIMAZE 100 MCG/2 ML ONE (16:05)
[2022-04-17] MEDS ORDERED: Reglan 10 MG/2 ML ONE (16:05)
[2022-04-17] MEDS ORDERED: Sodium Chloride 0.9% 1000 ML 1,000 ML ONE (16:05)
[2022-04-17 16:12] LABS: Absolute Neutrophil Ct (ANC) 4.27 x10^3/uL (1.4-6.9); Basophil (Absolute #) 0.04 x10^3/uL (0-0.4); Eosinophil % 2.3 % (0.00-5.0); Eosinophil (Absolute #) 0.16 x10^3/uL (0-0.5); Hematocrit 43.7 % (42-50); Hemoglobin 14.4 g/dL (12.5-18.0); Lymphocyte (Absolute #) 2.12 x10^3/uL (1.0-4.6); Lymphocytes % 29.9 % (24.0-44.0); Mean Cell Volume 84.7 fL (78-100); Mean Corpuscular Hemoglobin 27.9 pg (26-32); Mean Platelet Volume 10.8 fL (7.5-11.0); Monocyte (Absolute #) 0.46 x10^3/uL (0.0-1.3); Monocytes % 6.5 % (0.0-12.0); Neutrophil % 60.3 % (36.0-66.0); Platelet Count 256 x10^3/uL (150-450); Red Blood Count 5.16 x10^6/uL (4.1-5.6); Red Cell Distribution Width 13.1 % (11.5-14.0); White Blood Count 7.1 x10^3/uL (4.0-10.5)
[2022-04-17 16:15] LABS: ALBUMIN 4.1 g/dL (3.5-5.0); ALKALINE PHOSPHATASE 98 U/L (38-126); AMYLASE 64 U/L (30-110); ANION GAP 13.5 MEQ/L (5-15); BLOOD UREA NITROGEN 18 mg/dL (9-20); CHLORIDE 99 mmol/L (98-107); Calcium 9.2 mg/dL (8.4-10.2); Carbon Dioxide 31 mmol/L (22-30); Creatinine 1 1.08 mg/dL (0.66-1.25); EST GLOMERULAR FILTRATION RATE > 60.0 ML/MIN; Glucose 92 mg/dL (74-106); LIPASE 73 U/L (23-300); SGOT/AST 35 U/L (17-59); SGPT/ALT 39 U/L (0-50); SODIUM 140 mmol/L (137-145); Total Protein 7.8 g/dL (6.3-8.2)
[2022-04-17 16:26] LABS: Appearance CLEAR (CLEAR); Bilirubin SMALL (NEGATIVE); Dipstick done @ ? MAIN LAB; Glucose NEGATIVE (NEGATIVE); Ketones NEGATIVE (NEGATIVE); Nitrite NEGATIVE (NEGATIVE); Protein,Urine Dip NEGATIVE (Negative); RBC NEGATIVE Ery/ul (0-5); Specific Gravity 1.025 (1.005-1.025); Urobilinogen 0.2 mg/dL (0-1)
[2022-04-17 16:29] LABS: Bacteria NONE SEEN /HPF (NEGATIVE); Mucus SLIGHT /HPF (NEGATIVE); Urine Cultured Indicated? NO
[2022-04-17 18:08] VITALS: BP 108/74
[2022-04-17 19:07] VITALS: PULSE 88; O2SAT 97
--- NOTE | 2022-04-19 08:01 | XRAY ---
Indication: Abdomen pain, nausea, diarrhea. Multiple contiguous axial images obtained through the abdomen and pelvis without contrast. Comparison: One day earlier. Lung bases remain clear. Heart not enlarged. Noncontrasted stomach and bowel loops remain nonobstructed again with normal appendix. Stable fatty hepatomegaly, splenomegaly, small fatty umbilical hernia with small umbilical cyst, and cholecystectomy clips. No free fluid/air. Remaining liver, pancreas, spleen, adrenal glands, kidneys, ureters, bladder, and aorta remain unremarkable for noncontrast exam. Impression: No change compared to CT one day earlier again demonstrating small fatty umbilical hernia with cyst, fatty hepatomegaly, and splenomegaly. No new/acute abnormalities.
== END 2022-04-17 19:08 | disposition home or self-care (01) ==
LOC: ED 15:36
DX: N39.0 Urinary tract infection, site not specified (principal); R10.13 Epigastric pain; R10.84 Generalized abdominal pain; K52.89 Other specified noninfective gastroenteritis and colitis; R11.0 Nausea; I10 Essential (primary) hypertension; Z79.899 Other long term (current) drug therapy
CPT/HCPCS: 36000; 36415; 74176; 80053; 81015; 82150; 83605; 83690; 85025; 96374; 96375; 99284; J3010

== ENCOUNTER 2022-09-26 17:16 | Emergency (ER) | payer OTHER ==
[2022-09-26 18:49] LABS: INFLUENZA A NEGATIVE (NEGATIVE); INFLUENZA B NEGATIVE (NEGATIVE); RESPIRATORY SYNCTIAL VIRUS NEGATIVE (Negative)
[2022-09-26 18:51] LABS: SARS-CoV-2 Xpert Express POSITIVE (NEGATIVE)
[2022-09-26] MEDS ORDERED: DECADRON 10MG INJ. IM ONE (18:57)
[2022-09-26] MEDS ORDERED: PROVENTIL 2.5 MG/3 ML NEB IH ONE ×2 (18:58→19:16)
[2022-09-26] MEDS ORDERED: DECADRON 10MG INJ. ONE (19:02)
--- NOTE | 2022-09-26 19:02 | ERPHSYRPT ---
- History of Present Illness Time Seen by Provider: 09/26/22 17:55 Source: patient Exam Limitations: no limitations Patient Subjective Stated Complaint: Pt reports "My girlfriend tested positive for covid this morning and since then I have been weak, tired, bodyaches, dizzy, feel like I am going to pass out, and coughing so much I feel like I am going to puke". Triage Nursing Assessment: Patient brought to cot in wheelchair by [facility] nurse. Pt ambulated from wheelchair to cot without difficulty. Alert and oriented x3. No apparent respiratory distress. Pt reports his girlfriend was diagnosed with covid this morning and this morning he started feeling weak, tired, bodyaches, dizzy, and has developed a nonproductive cough and symptoms have worsened as the day went on. Pt went to [facility] and per SHABNAM Alvarado pt was tested negative for covid and flu, had a temp of 99F and was going to be sent home however pt told her he did not want to go home because he was still dizzy so he elected to come to ER. Pt has minimal wheezing in bilateral lower lobes, upper and middle lobes are clear. Physician History: Please 27-year-old male presents emergency department for evaluation of generalized weakness body aches lightheadedness cough wheezing. Patient went to [facility]. Patient advised that he was exposed to COVID. Patient significant other tested positive for COVID this morning. Patient tested negative for COVID at a [facility]. Patient was advised to go home as he likely had COVID and just was not triggering the test. Patient came here for further evaluation. On examination. Patient is slightly wheezing. Patient has been using his inhaler throughout the day. Patient has a history of asthma. Patient complains of viral-like illness. No meningeal signs. No chest pain. Symptoms are mild to m oderate in intensity. No specific worsening improving factors. Patient states he is otherwise healthy. He works at [employer]. Patient voices no other complaints or concerns at this time. Portions of this note were created with voice recognition technology. There may be grammatical, spelling, punctuation or sound alike errors Timing/Duration: today Severity: moderate Modifying Factors: Improves With: nothing Associated Symptoms: cough, No nausea, No vomiting, No shortness of breath, No seizure, No weakness Allergies/Adverse Reactions: No Known Drug Allergies Allergy (Verified 12/21/22 17:31) Home Medications: Desvenlafaxine Succinate [Desvenlafaxine Succinate ER] 100 mg PO DAILY 02/19/20 [History] Omeprazole 40 mg PO BID 02/19/20 [History] Ziprasidone HCl [Geodon] 80 mg PO BID 04/15/20 [History] Trazodone HCl 50 mg [Desyrel 50 mg] 50 mg PO HS 04/16/22 [History] Benztropine Mesylate 1 tab PO HS 04/17/22 [History] hydrOXYzine pamoate [Vistaril] 1 tab PO TID 04/17/22 [History] Hx Tetanus, Diphtheria Vaccination/Date Given: Yes Hx Influenza Vaccination/Date Given: No Hx Pneumococcal Vaccination/Date Given: No Travel Risk - International Travel Have you traveled outside of the country in past 3 weeks: No - Coronavirus Screening Are you exhibiting any of the following symptoms?: Yes Symptoms: Cough: New Onset, Shortness of Breath, Headaches/Body Aches/Fatigue Close contact with a COVID-19 positive Pt in past 14-21 Days: Yes - Vaccine Status Have you recieved a Covid-19 vaccination: Yes 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[employer] - Vaccination Dates Date of 2cond Vaccination (if applicable): 10/09/21 - Review of Systems Constitutional: No Symptoms, No Fever, No Chills Eyes: No Symptoms Ears, Nose, & Throat: No Symptoms Respiratory: No Symptoms, No Cough, No Dyspnea Cardiac: No Symptoms, No Chest Pain, No Edema, No Syncope Abdominal/Gastrointestinal: No Symptoms, No Abdominal Pain, No Nausea, No Vomiting, No Diarrhea Genitourinary Symptoms: No Symptoms, No Dysuria Musculoskeletal: No Symptoms, No Back Pain, No Neck Pain Skin: No Symptoms, No Rash Neurological: No Symptoms, No Dizziness, No Focal Weakness, No Sensory Changes Psychological: No Symptoms Endocrine: No Symptoms Hematologic/Lymphatic: No Symptoms Immunological/Allergic: No Symptoms All Other Systems: Reviewed and Negative - Past Medical History Pertinent Past Medical History: Yes Neurological History: Migraines, Seizures ENT History: No Pertinent History Cardiac History: Hypertension Respiratory History: Asthma, Sleep Apnea Endocrine Medical History: No Pertinent History Musculoskeletal History: Other GI Medical History: GERD, Gallbladder Disease, Other History: No Pertinent History Psycho-Social History: Anxiety, Bipolar, Depression, Other Male Reproductive Disorders: No Pertinent History Other Medical History: Occular Migraines, 1 heat seizure in 2010, Hx of HTN , Acid Reflux, Personality Disorder, Right Ankle torn Tendon and ligament (2000), PTSD, suicidal tendencies - Past Surgical History Past Surgical History: Yes Neuro Surgical History: No Pertinent History Cardiac: No Pertinent History Respiratory: No Pertinent History Gastrointestinal: Cholecystectomy Genitourinary: No Pertinent History Musculoskeletal: Other Male Surgical History: No Pertinent History Other Surgical History: 2000 Right Ankle tendon and ligament repair - Social History Smoking Status: Never smoker Exposure to second hand smoke: No Drug Use: none Patient Lives Alone: No Significant Family History: no pertinent family hx - Nursing Vital Signs Nursing Vital Signs: Initial Vital Signs Temperature 99.9 F 09/26/22 17:38 Pulse Rate 110 H 09/26/22 17:38 Respiratory Rate 20 09/26/22 17:38 Blood Pressure 130/94 09/26/22 17:38 O2 Sat by Pulse Oximetry 100 09/26/22 17:38 Pain Scale Pain Intensity 0 - Physical Exam General Appearance: no apparent distress, alert Eye Exam: PERRL/EOMI, eyes nml inspection Ears, Nose, Throat Exam: normal ENT inspection, TMs normal, pharynx normal, moist mucous membranes Neck Exam: normal inspection, non-tender, supple, full range of motion Respiratory Exam: airway intact, wheezing, No chest tenderness, No respiratory distress Cardiovascular Exam: regular rate/rhythm, normal heart sounds, normal peripheral pulses Gastrointestinal/Abdomen Exam: soft, normal bowel sounds, No tenderness, No mass Back Exam: normal inspection, normal range of motion, No CVA tenderness, No vertebral tenderness Extremity Exam: normal inspection, normal range of motion, pelvis stable Neurologic Exam: alert, oriented x 3, cooperative, normal mood/affect, nml cerebellar function, nml station & gait, sensation nml, No motor deficits Skin Exam: normal color, warm, dry, No rash Lymphatic Exam: No adenopathy SpO2 Interpretation: normal SpO2: 100 O2 Delivery: Room Air - Course Nursing assessment & vital signs reviewed: Yes EKG Interpreted by Me: RATE (102), Sinus Rhythm, NORMAL AXIS, NORMAL INTERVALS Ordered Tests: Medication Summary Discontinued Medications Generic Name Dose Route Start Last Admin Trade Name Freq PRN Reason Stop Dose Admin Albuterol Sulfate 2.5 mg 09/26/22 18:58 Albuterol Sulfate 2.5 Mg/3 Ml Neb IH 09/26/22 18:59 STAT ONE Dexamethasone Sodium Phosphate 6 mg 09/26/22 18:57 09/26/22 19:04 Dexamethasone Sod Phosphate 10 Mg/Ml IM 09/26/22 18:58 6 mg STAT ONE Administration Dexamethasone Sodium Phosphate Confirm 09/26/22 19:02 Dexamethasone Sod Phosphate 10 Mg/Ml Administered 09/26/22 19:03 Dose 10 mg .ROUTE .STK-MED ONE Lab/Rad Data: Laboratory Results 09/26/22 Range/Units 18:00 Influenza Type A Ag NEGATIVE (NEGATIVE) Influenza Type B Ag NEGATIVE (NEGATIVE) RSV (PCR) NEGATIVE (Negative) SARS-CoV-2 (PCR) POSITIVE A (NEGATIVE) - Progress Progress: improved Progress Note: Patient experiencing mild asthma exacerbation. Patient received a dose of Decadron in our ED. A prescription for prednisone was forwarded to patient's pharmacy. Patient also received a breathing treatment. COVID test in our ED is positive. Patient was exposed to COVID. He works at [employer]. Patient advised that he cannot return to work until cleared to do so by primary care doctor. Work note was provided. Patient has an inhaler at home does not need a refill. Patient understands importance of quarantine. Patient states he feels well he is ready for discharge. No indication for further work-up at this time. Will discharge home. Patient agrees to follow-up with his primary care doctor within 48 hours for evaluation. Portions of this note were created with voice recognition technology. There may be grammatical, spelling, punctuation or sound alike errors 09/26/22 19:13 Counseled pt/family regarding: lab results, diagnosis, need for follow-up - Departure Departure Disposition: Home Clinical Impression: COVID-19, Asthma exacerbation, Viral syndrome Condition: Stable Critical Care Time: No Referrals: LOULOU ROBERSON [Primary Care Provider] - Follow up/PCP as directed Additional Instructions: Discharge/Care Plan RICHI OROZCO was seen on 09/26/22 in the Emergency Room. The patient was counseled regarding Diagnosis,Lab results, Imaging studies, need for follow up and when to return to the Emergency Room. Prescriptions given: Discharge Note I have spoken with the patient and/or caregivers. I have explained the patient's condition, diagnosis and treatment plan based on the information available to me at this time. I have answered the patient's and/or caregiver's questions and addressed any concerns. The patient and/or caregivers have as good understanding of the patient's diagnosis, condition and treatment plan as can be expected at this point. The vital signs have been stable. The patient's condition is stable and appropriate for discharge from the emergency department. The patient will pursue further outpatient evaluation with the primary care physician or other designated or consulting physician as outlined in the discharge instructions. The patient and/or caregivers are agreeable to this plan of care and follow-up instructions have been explained in detail. The patient and/or caregivers have received these instruction. The patient/and or caregivers are aware that any significant change in condition or worsening of symptoms should prompt an immediate return to this or the closest emergency department or call 911. Prescriptions: Prednisone 10 mg [Deltasone 10 mg] 40 mg PO DAILY 3 Days #12 tablet
[2022-09-26 19:13] VITALS: BP 155/98
[2022-09-26 19:31] VITALS: PULSE 100; O2SAT 97
== END 2022-09-26 19:32 | disposition home or self-care (01) ==
LOC: ED 17:16
DX: U07.1 COVID-19 (principal); J45.901 Unspecified asthma with (acute) exacerbation; R05.9 Cough, unspecified; R53.1 Weakness; M79.10 Myalgia, unspecified site; R42 Dizziness and giddiness; I10 Essential (primary) hypertension; Z20.822 Contact with and (suspected) exposure to COVID-19; Z79.52 Long term (current) use of systemic steroids; Z79.899 Other long term (current) drug therapy
CPT/HCPCS: 0241U; 94640; 96372; 99283; J1100; J7609; A9270-GY

== ENCOUNTER 2022-12-21 21:59 | Emergency (ER) | payer OTHER ==
[2022-12-22] MEDS ORDERED: DUONEB 0.5-3 MG/3 ml Neb IH ONE ×2 (00:17→00:24)
[2022-12-22] MEDS ORDERED: solu-MEDROL 125 MG, Sterile H2O 10 ml 2 ML IV ONE ×2 (00:17)
--- NOTE | 2022-12-22 00:21 | ERPHSYRPT ---
- History of Present Illness Time Seen by Provider: 12/22/22 00:21 Source: patient Exam Limitations: no limitations Patient Subjective Stated Complaint: pt reports cough and shortness of breath for 2 days, states when he walks short distances he feels dizzy. pt also reports chest pressure. Triage Nursing Assessment: pt is aox3, pupils perrl, afebrile, pt short of breath at rest, pt lung sounds are diminished to the left mid/upper lobes, pt radial pulses strong and equal, cap refill < 3 seconds, pt skin pink warm dry. Physician History: Presents with rhinorrhea, nasal congestion, headache, sore throat and cough, pro ductive of yellow/green sputum Symptoms present for 3 days. + SOB/wheezing, hx of asthma, using albuterol 4-5 times per day Patient also reporting chest pressure, dizziness and decreased appetite + fever. + sick contacts. Timing/Duration: day(s) (3) Activities at Onset: rest Severity of Dyspnea-Max: moderate Severity of Dyspnea-Current: moderate Possible Cause: occasional episodes, illness exposure Modifying Factors: Improves With: albuterol inhaler, rest. Worsens With: activity, exertion, lying down Associated Symptoms: constant, cough, chest pain/discomfort, fever, loss of appetite, lightheadedness, wheezing, chills, dizziness, leg swelling, No edema, No hemoptysis, No calf pain Allergies/Adverse Reactions: No Known Drug Allergies Allergy (Verified 12/21/22 23:29) Home Medications: Desvenlafaxine Succinate [Desvenlafaxine Succinate ER] 100 mg PO DAILY 02/19/20 [History] Omeprazole 40 mg PO BID 02/19/20 [History] Ziprasidone HCl [Geodon] 80 mg PO BID 04/15/20 [History] Trazodone HCl 50 mg [Desyrel 50 mg] 50 mg PO HS 04/16/22 [History] Benztropine Mesylate 1 tab PO HS 04/17/22 [History] hydrOXYzine pamoate [Vistaril] 1 tab PO TID 04/17/22 [History] Hx Tetanus, Diphtheria Vaccination/Date Given: Yes Hx Influenza Vaccination/Date Given: Yes Hx Pneumococcal Vaccination/Date Given: Yes Immunizations Up to Date: Yes Travel Risk - International Travel Have you traveled outside of the country in past 3 weeks: No - Coronavirus Screening Are you exhibiting any of the following symptoms?: Yes Symptoms: Cough: New Onset, Shortness of Breath Close contact with a COVID-19 positive Pt in past 14-21 Days: No - Vaccine Status Have you recieved a Covid-19 vaccination: Yes 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: [employer] - Vaccination Dates Date of 2cond Vaccination (if applicable): unk - Review of Systems Constitutional: Fever, Chills, Weakness Eyes: No Symptoms Ears, Nose, & Throat: Nose Congestion, Sinus Drainage, Painful Swallowing Respiratory: Cough, Dyspnea, Dyspnea on Exertion (FARRAR), Wheezing Cardiac: Chest Pain, Edema Abdominal/Gastrointestinal: Appetite Changes, No Abdominal Pain, No Nausea, No Vomiting, No Diarrhea, No Constipation Genitourinary Symptoms: No Symptoms Musculoskeletal: Myalgias Skin: No Symptoms Neurological: Dizziness Psychological: No Symptoms Endocrine: No Symptoms Hematologic/Lymphatic: No Symptoms Immunological/Allergic: No Symptoms - Past Medical History Pertinent Past Medical History: Yes Neurological History: Migraines, Seizures ENT History: No Pertinent History Cardiac History: Hypertension Respiratory History: Asthma, Sleep Apnea Endocrine Medical History: No Pertinent History Musculoskeletal History: Other GI Medical History: GERD, Gallbladder Disease, Other History: No Pertinent History Psycho-Social History: Anxiety, Bipolar, Depression, Other Male Reproductive Disorders: No Pertinent History Other Medical History: Occular Migraines, 1 heat seizure in 2009, Hx of HTN , Acid Reflux, Personality Disorder, Right Ankle torn Tendon and ligament (2000), PTSD, suicidal tendencies - Past Surgical History Past Surgical History: Yes Neuro Surgical History: No Pertinent History Cardiac: No Pertinent History Respiratory: No Pertinent History Gastrointestinal: Cholecystectomy Genitourinary: No Pertinent History Musculoskeletal: Other Male Surgical History: No Pertinent History Other Surgical History: 2000 Right Ankle tendon and ligament repair - Social History Smoking Status: Never smoker Exposure to second hand smoke: No Drug Use: none Patient Lives Alone: No Significant Family History: no pertinent family hx - Nursing Vital Signs Nursing Vital Signs: Initial Vital Signs Temperature 98.6 F 12/21/22 23:19 Pulse Rate 79 12/21/22 23:19 Respiratory Rate 22 12/21/22 23:19 Blood Pressure 159/77 12/21/22 23:19 O2 Sat by Pulse Oximetry 98 12/21/22 23:19 Pain Scale Pain Intensity 0 - Physical Exam General Appearance: mild distress, obese Eye Exam: eyes nml inspection Ears, Nose, Throat Exam: hearing grossly normal, normal ENT inspection, sinus pain/drainage, nasal congestion, pharyngeal erythema Neck Exam: normal inspection, supple, full range of motion, lymphadenopathy (R), lymphadenopathy (L) Respiratory Exam: airway intact, diminished breath sounds, wheezing, No chest tenderness, No respiratory distress Cardiovascular/Chest Exam: normal heart sounds, tachycardia Abdominal/Gastrointestinal Exam: soft, normal bowel sounds, No tenderness Extremity Exam: non-tender, normal capillary refill, no calf tenderness, swelling Neurologic Exam: alert, oriented x 3, cooperative Skin Exam: normal color, warm, dry, No rash SpO2 Interpretation: borderline oxygenation SpO2: 95 O2 Delivery: Room Air - Course Nursing assessment & vital signs reviewed: Yes EKG Interpreted by Me: RATE (76), Sinus Rhythm, NORMAL AXIS, NORMAL INTERVALS, NORMAL ST-T - Radiology Exams Chest X-ray Interpretation: Interpreted by me (b/l patchy airspace disease) Ordered Tests: Medication Summary Discontinued Medications Generic Name Dose Route Start Last Admin Trade Name Nancy PRN Reason Stop Dose Admin Albuterol/Ipratropium 3 ml 12/22/22 00:17 12/22/22 00:25 Ipratropium/Albuterol Sulfate 3 Ml Ampul.Neb IH 12/22/22 00:18 3 ml STAT ONE Administration Albuterol/Ipratropium Confirm 12/22/22 00:24 Ipratropium/Albuterol Sulfate 3 Ml Ampul.Neb Administered 12/22/22 00:25 Dose 3 ml IH .STK-MED ONE Methylprednisolone Sodium 0 mg 12/22/22 00:17 12/22/22 00:30 Succinate 125 mg/ Sterile IV 12/22/22 00:18 125 mg Water 2 ml STAT ONE Administration Doxycycline Hyclate 100 mg 12/22/22 01:10 12/22/22 01:16 Doxycycline Hyclate 100 Mg Tablet PO 12/22/22 01:11 100 mg STAT ONE Administration Doxycycline Hyclate Confirm 12/22/22 01:16 Doxycycline Hyclate 100 Mg Tablet Administered 12/22/22 01:17 Dose 100 mg .ROUTE .STK-MED ONE Methylprednisolone Sodium Succinate Confirm 12/22/22 00:27 Methylprednis Sod Succ 125 Mg/2 Ml Vial Administered 12/22/22 00:28 Dose 125 mg .ROUTE .STK-MED ONE Lab/Rad Data: Laboratory Result Diagrams 12/22/22 Unknown 12/22/22 Unknown Laboratory Results 12/22/22 12/22/22 12/22/22 Range/Units Unknown Unknown Unknown WBC (4.0-10.5) x10^3/uL RBC (4.1-5.6) x10^6/uL Hgb (12.5-18.0) g/dL Hct (42-50) % MCV (78-100) fL MCH (26-32) pg MCHC (32-36) g/dL RDW (11.5-14.0) % Plt Count (150-450) x10^3/uL MPV (7.5-11.0) fL Gran % (36.0-66.0) % Immature Gran % (Auto) (0.00-0.4) % Nucleat RBC Rel Count (0.00-0.1) % Eos # (Auto) (0-0.5) x10^3/uL Immature Gran # (Auto) (0.00-0.03) x10^3u/L Absolute Lymphs (auto) (1.0-4.6) x10^3/uL Absolute Monos (auto) (0.0-1.3) x10^3/uL Absolute Nucleated RBC (0.00-0.01) x10^3u/L Lymphocytes % (24.0-44.0) % Monocytes % (0.0-12.0) % Eosinophils % (0.00-5.0) % Basophils % (0.0-0.4) % Absolute Granulocytes (1.4-6.9) x10^3/uL Basophils # (0-0.4) x10^3/uL D-Dimer 0.47 (0.0-0.50) mg/L pO2/FiO2 Ratio % VBG pH (7.32-7.42) VBG pCO2 at Pat Temp (42-55) mm/Hg VBG pO2 at Pat Temp (25-40) mm/Hg VBG HCO3 (22-28) meq/L VBG O2 Sat (David) (95-100) VBG Base Excess (-2.0-2.0) VBG Hemoglobin VBG Carboxyhemoglobin (0.0-6.9) % T HGB POC Potassium (3.5-5.1) Sodium 141 (137-145) mmol/L Potassium 3.8 (3.5-5.1) mmol/L Chloride 107 (98-107) mmol/L Carbon Dioxide 23 (22-30) mmol/L Anion Gap 13.8 (5-15) MEQ/L BUN 13 (9-20) mg/dL Creatinine 0.84 (0.66-1.25) mg/dL Estimated GFR > 60.0 ML/MIN Glucose 96 (74-106) mg/dL Lactic Acid (0.4-2.0) Calcium 8.6 (8.4-10.2) mg/dL Magnesium 2.1 (1.6-2.3) mg/dL Total Bilirubin 0.40 (0.2-1.3) mg/dL AST 34 (17-59) U/L ALT 34 (0-50) U/L Alkaline Phosphatase 95 (38-126) U/L Troponin I < 0.012 (0.000-0.034) ng/mL Serum Total Protein 7.3 (6.3-8.2) g/dL Albumin 4.0 (3.5-5.0) g/dL Influenza Type A Ag (NEGATIVE) Influenza Type B Ag (NEGATIVE) RSV (PCR) (NEGATIVE) SARS-CoV-2 (PCR) (NEGATIVE) 12/22/22 12/22/22 12/22/22 Range/Units Unknown 00:30 00:25 WBC 6.8 (4.0-10.5) x10^3/uL RBC 5.26 (4.1-5.6) x10^6/uL Hgb 14.7 (12.5-18.0) g/dL Hct 44.4 (42-50) % MCV 84.4 (78-100) fL MCH 27.9 (26-32) pg MCHC 33.1 (32-36) g/dL RDW 13.4 (11.5-14.0) % Plt Count 250 (150-450) x10^3/uL MPV 10.9 (7.5-11.0) fL Gran % 47.1 (36.0-66.0) % Immature Gran % (Auto) 0.4 (0.00-0.4) % Nucleat RBC Rel Count 0.0 (0.00-0.1) % Eos # (Auto) 0.21 (0-0.5) x10^3/uL Immature Gran # (Auto) 0.03 (0.00-0.03) x10^3u/L Absolute Lymphs (auto) 2.46 (1.0-4.6) x10^3/uL Absolute Monos (auto) 0.85 (0.0-1.3) x10^3/uL Absolute Nucleated RBC 0.00 (0.00-0.01) x10^3u/L Lymphocytes % 36.4 (24.0-44.0) % Monocytes % 12.6 H (0.0-12.0) % Eosinophils % 3.1 (0.00-5.0) % Basophils % 0.4 (0.0-0.4) % Absolute Granulocytes 3.17 (1.4-6.9) x10^3/uL Basophils # 0.03 (0-0.4) x10^3/uL D-Dimer (0.0-0.50) mg/L pO2/FiO2 Ratio 21.0 % VBG pH 7.38 (7.32-7.42) VBG pCO2 at Pat Temp 43 (42-55) mm/Hg VBG pO2 at Pat Temp 59 H (25-40) mm/Hg VBG HCO3 25.4 (22-28) meq/L VBG O2 Sat (David) 89.9 L (95-100) VBG Base Excess 0.0 (-2.0-2.0) VBG Hemoglobin 15.2 VBG Carboxyhemoglobin 3.5 (0.0-6.9) % T HGB POC Potassium 4.0 (3.5-5.1) Sodium (137-145) mmol/L Potassium (3.5-5.1) mmol/L Chloride (98-107) mmol/L Carbon Dioxide (22-30) mmol/L Anion Gap (5-15) MEQ/L BUN (9-20) mg/dL Creatinine (0.66-1.25) mg/dL Estimated GFR ML/MIN Glucose (74-106) mg/dL Lactic Acid 1.3 (0.4-2.0) Calcium (8.4-10.2) mg/dL Magnesium (1.6-2.3) mg/dL Total Bilirubin (0.2-1.3) mg/dL AST (17-59) U/L ALT (0-50) U/L Alkaline Phosphatase (38-126) U/L Troponin I (0.000-0.034) ng/mL Serum Total Protein (6.3-8.2) g/dL Albumin (3.5-5.0) g/dL Influenza Type A Ag NEGATIVE (NEGATIVE) Influenza Type B Ag NEGATIVE (NEGATIVE) RSV (PCR) NEGATIVE (NEGATIVE) SARS-CoV-2 (PCR) NEGATIVE (NEGATIVE) - Progress Progress: improved Air Movement: fair Progress Note: Patient treated w/ DuoNebs, steroids and abx. No concerning findings on lab evaluation. Will treat as CAP w/ Doxycycline and asthma exacerbation w/ Prednisone burst. Due to his increased use of Albuterol inhaler I will start on Fluticasone inhaler for QD use. Stressed the importance of f/u w/ PCP for further management. Blood Culture(s) Obtained: No Antibiotics given: Yes Counseled pt/family regarding: lab results, diagnosis, need for follow-up, rad results Medical Desision Making - Diagnostic Testing Diagnostic test were ordered, analyzed, and reviewed by me: Yes Radiological Interpretation: Interpreted by me - Risk of complications The pt has a mod risk of morbidity or mortality based on: Need for prescription drug management - Departure Departure Disposition: Home Clinical Impression: Atypical pneumonia, Asthma Condition: Good Critical Care Time: No Referrals: LOULOU ROBERSON [Primary Care Provider] - Follow up/PCP as directed Instructions: Asthma, Adult (DC) Prescriptions: Doxycycline Hyclate 100 mg PO BID 10 Days #20 tablet Fluticasone Propionate [Flovent Hfa] 12 gm IH DAILY 30 Days #1 inhaler predniSONE [Prednisone] 50 mg PO DAILY 5 Days #5 tablet
[2022-12-22 00:27] LABS: Absolute Neutrophil Ct (ANC) 3.17 x10^3/uL (1.4-6.9); BASOPHIL % 0.4 % (0.0-0.4); Basophil (Absolute #) 0.03 x10^3/uL (0-0.4); Eosinophil % 3.1 % (0.00-5.0); Eosinophil (Absolute #) 0.21 x10^3/uL (0-0.5); Hematocrit 44.4 % (42-50); Hemoglobin 14.7 g/dL (12.5-18.0); IMMATURE GRAN # 0.03 x10^3u/L (0.00-0.03); IMMATURE GRAN % 0.4 % (0.00-0.4); Lymphocyte (Absolute #) 2.46 x10^3/uL (1.0-4.6); Lymphocytes % 36.4 % (24.0-44.0); Mean Cell Volume 84.4 fL (78-100); Mean Corpuscular Hemoglobin 27.9 pg (26-32); Mean Corpuscular Hgb Concent. 33.1 g/dL (32-36); Mean Platelet Volume 10.9 fL (7.5-11.0); Monocyte (Absolute #) 0.85 x10^3/uL (0.0-1.3); Monocytes % 12.6 % (0.0-12.0); Neutrophil % 47.1 % (36.0-66.0); Platelet Count 250 x10^3/uL (150-450); Red Blood Count 5.26 x10^6/uL (4.1-5.6); Red Cell Distribution Width 13.4 % (11.5-14.0); White Blood Count 6.8 x10^3/uL (4.0-10.5)
[2022-12-22] MEDS ORDERED: solu-MEDROL ONE (00:27)
[2022-12-22 00:30] LABS: Lactic Acid 1.3 (0.4-2.0); VBG CARBOXYHEMOGLOBIN 3.5 % T HGB (0.0-6.9); VBG HCO3- 25.4 meq/L (22-28); VBG HEMOGLOBIN 15.2; VBG O2 SATURATION 89.9 (95-100); VBG pH 7.38 (7.32-7.42)
[2022-12-22 00:47] LABS: ALKALINE PHOSPHATASE 95 U/L (38-126); ANION GAP 13.8 MEQ/L (5-15); BLOOD UREA NITROGEN 13 mg/dL (9-20); CHLORIDE 107 mmol/L (98-107); Calcium 8.6 mg/dL (8.4-10.2); Carbon Dioxide 23 mmol/L (22-30); Creatinine 1 0.84 mg/dL (0.66-1.25); EST GLOMERULAR FILTRATION RATE > 60.0 ML/MIN; Glucose 96 mg/dL (74-106); MAGNESIUM 2.1 mg/dL (1.6-2.3); Potassium 3.8 mmol/L (3.5-5.1); SGOT/AST 34 U/L (17-59); SGPT/ALT 34 U/L (0-50); SODIUM 141 mmol/L (137-145); Total Protein 7.3 g/dL (6.3-8.2)
[2022-12-22] MEDS ORDERED: Vibramycin 100 MG PO ONE (01:10)
[2022-12-22 01:13] LABS: INFLUENZA A NEGATIVE (NEGATIVE); INFLUENZA B NEGATIVE (NEGATIVE); RESPIRATORY SYNCTIAL VIRUS NEGATIVE (NEGATIVE); SARS-CoV-2 Xpert Express NEGATIVE (NEGATIVE)
[2022-12-22] MEDS ORDERED: Vibramycin 100 MG ONE (01:16)
[2022-12-22 01:22] VITALS: O2SAT 95
[2022-12-22 02:29] VITALS: BP 176/98; PULSE 82
--- NOTE | 2022-12-22 07:56 | XRAY ---
Indication: Short of breath and chest pressure. Comparison: March 05, 2021 Portable chest inflated and clear. Heart and mediastinal structures within normal limits. Bony thorax intact. Impression: Nonacute chest.
== END 2022-12-22 02:28 | disposition home or self-care (01) ==
LOC: ED 21:59
DX: J18.9 Pneumonia, unspecified organism (principal); J45.909 Unspecified asthma, uncomplicated; R06.02 Shortness of breath; I10 Essential (primary) hypertension; Z79.52 Long term (current) use of systemic steroids; Z79.899 Other long term (current) drug therapy
CPT/HCPCS: 0241U; 36000; 36415; 71045; 80053; 82805; 83605; 83735; 84484; 85025; 85379; 93005; 94640; 96374; 99284; J2930; A9270-GY

== ENCOUNTER 2023-06-10 18:46 | Emergency (ER) | payer OTHER ==
[2023-06-10 19:01] VITALS: TEMP 97.7
--- NOTE | 2023-06-10 19:40 | ERPHSYRPT ---
- History of Present Illness Source: patient Exam Limitations: no limitations Patient Subjective Stated Complaint: sore throat x 3 days, vomiting today x 2 episodes Triage Nursing Assessment: To ED with cc of sore throat x3 days, vomiting x 2 episodes today. Denies diarrhea, skin PWD. A &OX3. Ambulatory,anwers all questions appropriately. No redness or swelling noted to throat upon exam. No hoarseness. Denies difficulty breathing. Physician History: [address]/cough/N/V x 3 days. He has chronic diarrhea and denies fever/new dyspnea/hematemesis/melena/hematochezia/headache. PMH includes HTN/morbid obesity/asthma. Timing/Duration: days (3 days) ENT Location: throat Prearrival Treatment: no prearrival treatment Associated Symptoms: denies symptoms, cough, sore throat Allergies/Adverse Reactions: No Known Drug Allergies Allergy (Verified 12/21/22 23:29) Home Medications: Desvenlafaxine Succinate [Desvenlafaxine Succinate ER] 100 mg PO DAILY 02/19/20 [History] Ziprasidone HCl [Geodon] 80 mg PO BID 04/15/20 [History] Trazodone HCl 50 mg [Desyrel 50 mg] 50 mg PO HS 04/16/22 [History] Benztropine Mesylate 1 tab PO HS 04/17/22 [History] Hx Tetanus, Diphtheria Vaccination/Date Given: Yes Hx Influenza Vaccination/Date Given: Yes Hx Pneumococcal Vaccination/Date Given: Yes Travel Risk - International Travel Have you traveled outside of the country in past 3 weeks: No - Coronavirus Screening Are you exhibiting any of the following symptoms?: No Close contact with a COVID-19 positive Pt in past 14-21 Days: No - Vaccine Status Have you recieved a Covid-19 vaccination: Yes 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: [employer] - Vaccination Dates Date of 2cond Vaccination (if applicable): unk - Review of Systems Constitutional: No Symptoms, Malaise Eyes: No Symptoms Ears, Nose, & Throat: No Symptoms, Throat Pain Respiratory: No Symptoms, Cough Cardiac: No Symptoms Abdominal/Gastrointestinal: No Symptoms Genitourinary Symptoms: No Symptoms Musculoskeletal: No Symptoms Skin: No Symptoms Neurological: No Symptoms Psychological: No Symptoms Endocrine: No Symptoms Hematologic/Lymphatic: No Symptoms Immunological/Allergic: No Symptoms - Past Medical History Pertinent Past Medical History: Yes Neurological History: Migraines, Seizures ENT History: No Pertinent History Cardiac History: Hypertension Respiratory History: Asthma, Sleep Apnea Endocrine Medical History: No Pertinent History Musculoskeletal History: Other GI Medical History: GERD, Gallbladder Disease, Other History: No Pertinent History Psycho-Social History: Anxiety, Bipolar, Depression, Other Male Reproductive Disorders: No Pertinent History Other Medical History: Occular Migraines, 1 heat seizure in 2009, Hx of HTN , Acid Reflux, Personality Disorder, Right Ankle torn Tendon and ligament (2000), PTSD, suicidal tendencies - Past Surgical History Past Surgical History: Yes Neuro Surgical History: No Pertinent History Cardiac: No Pertinent History Respiratory: No Pertinent History Gastrointestinal: Cholecystectomy Genitourinary: No Pertinent History Musculoskeletal: Other Male Surgical History: No Pertinent History Other Surgical History: 2000 Right Ankle tendon and ligament repair - Social History Smoking Status: Never smoker Exposure to second hand smoke: No Drug Use: none Patient Lives Alone: No Significant Family History: no pertinent family hx - Nursing Vital Signs Nursing Vital Signs: Initial Vital Signs Temperature 97.7 F 06/10/23 18:56 Pulse Rate 86 06/10/23 18:56 Respiratory Rate 16 06/10/23 18:56 Blood Pressure 144/94 06/10/23 18:56 O2 Sat by Pulse Oximetry 96 06/10/23 18:56 Pain Scale Pain Intensity 0 Hypertensive - Physical Exam General Appearance: no apparent distress Eye Exam: bilateral eye: normal inspection, PERRL, EOMI Ear Exam: bilateral ear: auricle normal, canal normal, TM normal Nasal Exam: normal inspection Throat Exam: normal, pharynx normal Neck Exam: normal inspection, non-tender, supple, full range of motion, trachea midline, No Brudzinski's sign, No Kernig's sign Cardiovascular/Respiratory Exam: normal breath sounds, regular rate/rhythm, heart sounds normal Abdominal Exam: non-tender, soft Neurologic Exam: alert, oriented x 3, cooperative, audience coordinator II-XII nml as tested, normal mood/affect, nml cerebellar function, nml station & gait, sensation nml Skin Exam: normal color, warm, dry, No rash SpO2 Interpretation: normal SpO2: 96 O2 Delivery: Room Air - Course Nursing assessment & vital signs reviewed: Yes Lab/Rad Data: Laboratory Results 06/10/23 06/10/23 Range/Units 20:05 20:05 Influenza Type A Ag NEGATIVE (NEGATIVE) Influenza Type B Ag NEGATIVE (NEGATIVE) RSV (PCR) NEGATIVE (NEGATIVE) SARS-CoV-2 (PCR) NEGATIVE (NEGATIVE) Group A Strep Antibody NOT DETECTED (NEGATIVE) - Progress Progress Note: 06/10/23 20:54 Nursing note and vital signs reviewed No food or housing insecurities noted Lab results reviewed and shared w pt Pt w a good airway during entire ER stay Counseled pt/family regarding: lab results, diagnosis, need for follow-up Medical Desision Making - Diagnostic Testing Diagnostic test were ordered, analyzed, and reviewed by me: Yes - Risk of complications Low Risk: Low risk of morbidity from additional dx testing or treatment - Departure Departure Disposition: Home Clinical Impression: Pharyngitis Condition: Stable Critical Care Time: No Referrals: LOULOU ROBERSON [Primary Care Provider] - Follow up/PCP as directed Instructions: Sore Throat, Adult (DC) Additional Instructions: Motrin/Tylenol for pain Fluids Follow up with your family MD Return to ER as needed
[2023-06-10 20:21] VITALS: BP 148/112; PULSE 74; RESP 18
[2023-06-10 20:48] LABS: INFLUENZA A NEGATIVE (NEGATIVE); INFLUENZA B NEGATIVE (NEGATIVE); RESPIRATORY SYNCTIAL VIRUS NEGATIVE (NEGATIVE); SARS-CoV-2 Xpert Express NEGATIVE (NEGATIVE)
[2023-06-10 20:56] VITALS: O2SAT 96
== END 2023-06-10 21:00 | disposition home or self-care (01) ==
LOC: ED 18:46
DX: J02.9 Acute pharyngitis, unspecified (principal); R05.1 Acute cough; R11.2 Nausea with vomiting, unspecified; I10 Essential (primary) hypertension; Z79.899 Other long term (current) drug therapy
CPT/HCPCS: 0241U; 87651; 99282

== ENCOUNTER 2024-02-11 21:48 | Emergency (ER) | payer OTHER ==
[2024-02-11 22:37] VITALS: TEMP 98.7
[2024-02-11] MEDS ORDERED: BACIGUENT PACKET ONE (23:52)
[2024-02-11] MEDS: BACIGUENT PACKET TP ONE (23:56)
--- NOTE | 2024-02-12 00:20 | ERPHSYRPT ---
- History of Present Illness Time Seen by Provider: 02/11/24 22:50 Source: patient Exam Limitations: no limitations Patient Subjective Stated Complaint: pt states he was trying to fix his stove and burnt his hand Triage Nursing Assessment: pt ambulated into the er; pt is axo x4; pt is falling asleep durning triage; c/o burn to left palm; 2nd degree burn to left palm; strong left radial pulse; good cap refill to left hand; no respiratory distress present; skin PDW; vitals wnl Physician History: 29-year-old male presents emergency department for evaluation of a burn to his left hand. Patient states he was working on the stove and inadvertently placed his hand on a hot burner. Injury occurred approximately 2 hours prior to arrival. No other injuries reported. Pain described as a burning sensation. No other injuries reported tetanus up-to-date. Vital stable. Patient voices no other complaints concerns at this time. Patient declined pain medication. He states he has pain medication at home Portions of this note were created with voice recognition technology. There may be grammatical, spelling, punctuation or sound alike errors Timing/Duration: today Severity: moderate Allergies/Adverse Reactions: No Known Drug Allergies Allergy (Verified 02/11/24 22:26) Home Medications: Desvenlafaxine Succinate [Desvenlafaxine Succinate ER] 100 mg PO DAILY 02/19/20 [History] Ziprasidone HCl [Geodon] 80 mg PO BID 04/15/20 [History] Trazodone HCl 50 mg [Desyrel 50 mg] 50 mg PO HS 04/16/22 [History] Benztropine Mesylate 1 tab PO HS 04/17/22 [History] Hydroxyzine HCl 25 mg [Atarax 25 mg] 25 mg PO DAILY 02/11/24 [History] Omeprazole 40 mg PO DAILY 02/11/24 [History] Semaglutide [Ozempic] 0.25 mg SQ WEEKLY 02/11/24 [History] Hx Tetanus, Diphtheria Vaccination/Date Given: Yes Hx Influenza Vaccination/Date Given: No Hx Pneumococcal Vaccination/Date Given: No Immunizations Up to Date: No Travel Risk - International Travel Have you traveled outside of the country in past 3 weeks: No - Emerging Infectious Disease Are you exhibiting symptoms associated with any current EIDs: No - Review of Systems Constitutional: No Symptoms, No Fever, No Chills Eyes: No Symptoms Ears, Nose, & Throat: No Symptoms Respiratory: No Symptoms, No Cough, No Dyspnea Cardiac: No Symptoms, No Chest Pain, No Edema, No Syncope Abdominal/Gastrointestinal: No Symptoms, No Abdominal Pain, No Nausea, No Vomiting, No Diarrhea Genitourinary Symptoms: No Symptoms, No Dysuria Musculoskeletal: No Symptoms, No Back Pain, No Neck Pain Skin: No Symptoms, No Rash Neurological: No Symptoms, No Dizziness, No Focal Weakness, No Sensory Changes Psychological: No Symptoms Endocrine: No Symptoms Hematologic/Lymphatic: No Symptoms Immunological/Allergic: No Symptoms All Other Systems: Reviewed and Negative - Past Medical History Pertinent Past Medical History: Yes Neurological History: Migraines, Seizures ENT History: No Pertinent History Cardiac History: Hypertension Respiratory History: Asthma, Sleep Apnea Endocrine Medical History: No Pertinent History Musculoskeletal History: Other GI Medical History: GERD, Gallbladder Disease, Other History: No Pertinent History Psycho-Social History: Anxiety, Bipolar, Depression, Other Male Reproductive Disorders: No Pertinent History Other Medical History: Occular Migraines, 1 heat seizure in 2009, Hx of HTN , Acid Reflux, Personality Disorder, Right Ankle torn Tendon and ligament (2000), PTSD, suicidal tendencies - Past Surgical History Past Surgical History: Yes Neuro Surgical History: No Pertinent History Cardiac: No Pertinent History Respiratory: No Pertinent History Gastrointestinal: Cholecystectomy Genitourinary: No Pertinent History Musculoskeletal: Other Male Surgical History: No Pertinent History Other Surgical History: 2000 Right Ankle tendon and ligament repair Significant Family History: no pertinent family hx - Social History Smoking Status: Never smoker Exposure to second hand smoke: No Drug Use: none Patient Lives Alone: No - Nursing Vital Signs Nursing Vital Signs: Initial Vital Signs Temperature 98.7 F 02/11/24 22:30 Pulse Rate 87 02/11/24 22:30 Respiratory Rate 22 02/11/24 22:30 Blood Pressure 110/73 02/11/24 22:30 O2 Sat by Pulse Oximetry 94 L 02/11/24 22:30 Pain Scale Pain Intensity 7 - Physical Exam General Appearance: no apparent distress, alert Eye Exam: PERRL/EOMI, eyes nml inspection Ears, Nose, Throat Exam: normal ENT inspection, TMs normal, pharynx normal, moist mucous membranes Neck Exam: normal inspection, non-tender, supple, full range of motion Respiratory Exam: normal breath sounds, lungs clear, No respiratory distress Cardiovascular Exam: regular rate/rhythm, normal heart sounds, normal peripheral pulses Gastrointestinal/Abdomen Exam: soft, normal bowel sounds, No tenderness, No mass Back Exam: normal inspection, normal range of motion, No CVA tenderness, No vert ebral tenderness Extremity Exam: normal inspection, normal range of motion, pelvis stable Neurologic Exam: alert, oriented x 3, cooperative, normal mood/affect, sensation nml, No motor deficits Skin Exam: normal color, warm, dry, No rash Lymphatic Exam: No adenopathy SpO2 Interpretation: normal SpO2: 95 O2 Delivery: Room Air - Course Nursing assessment & vital signs reviewed: Yes Ordered Tests: Medication Summary Discontinued Medications Generic Name Dose Route Start Last Admin Trade Name Freq PRN Reason Stop Dose Admin Bacitracin Zinc Confirm 02/11/24 23:52 Bacitracin Packet 1 Each Pckt Administered 02/11/24 23:53 Dose 2 each .ROUTE .STK-MED ONE Bacitracin Zinc 1.8 each 02/11/24 23:54 02/11/24 23:56 Bacitracin Packet 1 Each Pckt TP 02/11/24 23:55 1.8 each STAT ONE Administration - Progress Progress: improved Progress Note: 29-year-old male presents to our ED with partial-thickness and superficial thickness burn to left hand. The involved extremities neurovascular tact distally compartments are soft cap refill less than 2 seconds. No open or draining lesions. Tetanus up-to-date. Patient declined pain medication. I spoke to burn center Tammy Espinal nurse practitioner. No indication for transfer at this time. Outpatient follow-up would be beneficial. Contact number to clinic is [phone]. Patient states he is ready for discharge. He voices no other complaints or concerns at this time. We applied bacitracin cream to the involved area. The remainder of the cream was provided to patient for home use. Dressing applied. Patient will follow-up with the burn center as indicated. He voices no other complaints or concerns at this time. Complexity problem addressed is moderate acute complicated. No critical care time. Complexity data reviewed and analyzed is none. No specialized testing ordered. Diagnosis made based on history and physical examination. Risk of morbidity/mortality patient management is moderate. Vital stable. Time spent to discharge patient is approximately 20 minutes. Plan of care established for shared decision making. No social determinants of health present impede follow- up. Portions of this note were created with voice recognition technology. There may be grammatical, spelling, punctuation or sound alike errors 02/12/24 00:26 Counseled pt/family regarding: diagnosis, need for follow-up - Departure Departure Disposition: Home Clinical Impression: Partial thickness burn of hand, Superficial partial thickness burn of hand Condition: Stable Critical Care Time: No Referrals: LOULOU ROBERSON [Primary Care Provider] - Follow up/PCP as directed Additional Instructions: Please call [facility] [place] for follow-up. Please call tomorrow 02/13/2024 The number is [phone] Discharge/Care Plan RICHI OROZCO was seen on 02/12/24 in the Emergency Room. The patient was counseled regarding Diagnosis,Lab results, Imaging studies, need for follow up and when to return to the Emergency Room. Prescriptions given: Discharge Note I have spoken with the patient and/or caregivers. I have explained the patient's condition, diagnosis and treatment plan based on the information available to me at this time. I have answered the patient's and/or caregiver's questions and addressed any concerns. The patient and/or caregivers have as good understanding of the patient's diagnosis, condition and treatment plan as can be expected at this point. The vital signs have been stable. The patient's condition is stable and appropriate for discharge from the emergency department. The patient will pursue further outpatient evaluation with the primary care physician or other designated or consulting physician as outlined in the discharge instructions. The patient and/or caregivers are agreeable to this plan of care and follow-up instructions have been explained in detail. The patient and/or caregivers have received these instruction. The patient/and or caregivers are aware that any significant change in condition or worsening of symptoms should prompt an immediate return to this or the closest emergency department or call 911. Forms: Work/School Release Form
[2024-02-12 00:40] VITALS: BP 130/85; PULSE 84; RESP 20; O2SAT 99
== END 2024-02-12 00:41 | disposition home or self-care (01) ==
LOC: ED 21:48
DX: T23.252A Burn of second degree of left palm, initial encounter (principal); X15.0XXA Contact with hot stove (kitchen), initial encounter; I10 Essential (primary) hypertension; Z79.85 Long-term (current) use of injectable non-insulin antidiabetic drugs; Z79.899 Other long term (current) drug therapy
CPT/HCPCS: 99282; A9270-GY

== ENCOUNTER 2024-11-20 07:34 | Emergency (ER) | payer OTHER ==
[2024-11-20 07:47] VITALS: RESP 18; TEMP 96.7; O2SAT 99
--- NOTE | 2024-11-20 07:52 | ERPHSYRPT ---
- History of Present Illness Time Seen by Provider: 11/20/24 07:46 Source: patient Exam Limitations: no limitations Patient Subjective Stated Complaint: Right foot pain Physician History: Patient is a 29-year-old male who had a 50 pound pot drop on the top of his right foot, causing pain as well as he has a small blister to the top of his right foot also. Patient has severe pain up to 9 out of 10 when he puts weight on his foot, so he had to leave work to come to the emergency room to get further evaluated. Patient states pain currently is a 4-5 out of 10 and rest has improved it. He describes the pain as throbbing and aching. He denies any pain to his right ankle, to his left foot or ankle, or to either parts of his lower legs or knees or thighs bilaterally. Patient has no open wounds anywhere else. Patient cannot recall his last tetanus booster. Patient has not been evaluated or treated by 1 prior to coming to the emergency department this morning. Method of Injury: direct blow (50 pound pot dropped on his foot) Occurred: just prior to arrival, hours ago (1) Severity of Pain-Max: severe Severity of Pain-Current: moderate Lower Extremities Pain: foot: right (top) Modifying Factors: Improves With: rest. Worsens With: movement Associated Symptoms: unable to bear weight, No dizzy, No fainted, No seizure, No snapping sensation, No popping sensation Allergies/Adverse Reactions: No Known Drug Allergies Allergy (Verified 02/11/24 22:26) Home Medications: Desvenlafaxine Succinate [Desvenlafaxine Succinate ER] 100 mg PO DAILY 02/19/20 [History] ziprasidone HCL [Geodon] 80 mg PO BID 04/15/20 [History] Trazodone HCl 50 mg [Desyrel 50 mg] 50 mg PO HS 04/16/22 [History] Benztropine Mesylate 1 tab PO HS 04/17/22 [History] Hydroxyzine HCl 25 mg [Atarax 25 mg] 25 mg PO DAILY 02/11/24 [History] Omeprazole 40 mg PO DAILY 02/11/24 [History] Semaglutide [Ozempic] 0.25 mg SQ WEEKLY 02/11/24 [History] Hx Tetanus, Diphtheria Vaccination/Date Given: Yes Hx Influenza Vaccination/Date Given: No Hx Pneumococcal Vaccination/Date Given: No Travel Risk - Emerging Infectious Disease Are you exhibiting symptoms associated with any current EIDs: No - Review of Systems Constitutional: No Fever, No Chills Eyes: No Symptoms, No Eye Pain, No Vision Changes Ears, Nose, & Throat: No Symptoms Respiratory: No Cough, No Dyspnea Cardiac: No Chest Pain, No Edema, No Syncope Abdominal/Gastrointestinal: No Abdominal Pain, No Nausea, No Vomiting, No Diarrhea Genitourinary Symptoms: No Dysuria, No Hematuria Musculoskeletal: Injury, No Back Pain, No Neck Pain Skin: Other (Small blister to the top of the right foot), No Rash Neurological: No Dizziness, No Focal Weakness, No Sensory Changes Psychological: No Symptoms Endocrine: No Symptoms All Other Systems: Reviewed and Negative - Past Medical History Pertinent Past Medical History: Yes Neurological History: Migraines, Seizures ENT History: No Pertinent History Cardiac History: Hypertension Respiratory History: Asthma, Sleep Apnea Endocrine Medical History: No Pertinent History Musculoskeletal History: Other GI Medical History: GERD, Gallbladder Disease, Other History: No Pertinent History Psycho-Social History: Anxiety, Bipolar, Depression, Other Male Reproductive Disorders: No Pertinent History Other Medical History: Occular Migraines, 1 heat seizure in 2009, Hx of HTN , Acid Reflux, Personality Disorder, Right Ankle torn Tendon and ligament (2000), PTSD, suicidal tendencies - Past Surgical History Past Surgical History: Yes Neuro Surgical History: No Pertinent History Cardiac: No Pertinent History Respiratory: No Pertinent History Gastrointestinal: Cholecystectomy Genitourinary: No Pertinent History Musculoskeletal: Other Male Surgical History: No Pertinent History Other Surgical History: 2000 Right Ankle tendon and ligament repair Significant Family History: no pertinent family hx - Social History Smoking Status: Never smoker Exposure to second hand smoke: No Drug Use: none Patient Lives Alone: No - Social Determinants of Health Will the patient participate in the screening: Yes Do you worry about a steady place to live?: No In the past 12 months,have you had to go without utilities?: No Transportation Issues: No Has anyone in your support network made you feel unsafe?: No Have you or anyone in your house had to go w/o enough food: No - Nursing Vital Signs Nursing Vital Signs: Initial Vital Signs Temperature 96.7 F 11/20/24 07:43 Pulse Rate 70 11/20/24 07:43 Respiratory Rate 18 11/20/24 07:43 Blood Pressure 124/79 11/20/24 07:43 O2 Sat by Pulse Oximetry 99 11/20/24 07:43 Pain Scale Pain Intensity 3 - Physical Exam General Appearance: alert Eyes, Ears, Nose, Throat Exam: moist mucous membranes Neck Exam: non-tender, supple Cardiovascular/Respiratory Exam: chest non-tender, normal breath sounds, regular rate/rhythm, no respiratory distress Gastrointestinal/Abdominal Exam: non-tender, soft, guarding Back Exam: normal inspection, No CVA tenderness, No vertebral tenderness Hips Exam: bilateral: non-tender, normal inspection, normal range of motion Legs Exam: bilateral leg: non-tender, normal inspection, normal range of motion, no evidence of injury Knees Exam: bilateral knee: non-tender, normal inspection, normal range of motion, no evidence of injury Ankle Exam: bilateral ankle: non-tender, normal inspection, normal range of motion, no evidence of injury Foot Exam: right foot: bone tenderness, other (1 cm blister to dorsum of right foot lateral to the midline), left foot: non-tender, normal inspection, normal range of motion, no evidence of injury DTR - Lower Extremities Exam: ankle (R): 2+, ankle (L): 2+ Neuro/Tendon Exam: normal sensation, normal motor functions, normal tendon functions, no evidence tendon injury, No motor deficit, No sensory deficit Mental Status Exam: alert, oriented x 3, cooperative Skin Exam: normal color, warm, dry, No abrasion, No cyanosis, No jaundice SpO2 Interpretation: normal SpO2: 99 O2 Delivery: Room Air - Course Nursing assessment & vital signs reviewed: Yes - Radiology Exams Right Foot X-ray Interpretation: Interpreted by me, Reviewed by me, Discussed w/ radiologist, Negative, No Fracture, Nml Soft Tissues Ordered Tests: Active Orders 24 hr Category Date Time Status Dressing Care ROUTINE Care 11/20/24 07:57 Active FOOT (MINIMUM 3 VIEWS) Stat Exams 11/20/24 07:53 Taken Medication Summary Discontinued Medications Generic Name Dose Route Start Last Admin Trade Name Freq PRN Reason Stop Dose Admin Diphtheria/Tetanus/Acell Pertussis 0.5 ml 11/20/24 07:52 11/20/24 07:59 Tdap --Diph,Pertuss(Acell),Tet Vac/Pf 0.5 Ml Vial IM 11/20/24 07:53 0.5 ml .ONCE ONE Administration Diphtheria/Tetanus/Acell Pertussis Confirm 11/20/24 07:57 Tdap --Diph,Pertuss(Acell),Tet Vac/Pf 0.5 Ml Vial Administered 11/20/24 07:58 Dose 0.5 ml IM .STK-MED ONE Morphine Sulfate 4 mg 11/20/24 07:52 11/20/24 07:59 Morphine Sulfate 4 Mg/Ml Injection IM 11/20/24 07:53 4 mg STAT ONE Administration Morphine Sulfate Confirm 11/20/24 07:57 Morphine Sulfate 4 Mg/Ml Injection Administered 11/20/24 07:58 Dose 4 mg .ROUTE .STK-MED ONE - Progress Progress: improved Progress Note: 11/20/24 08:29 Patient's pain is improving and we placed the patient in a postop shoe to help keep him mobile 11/20/24 08:30 Patient is a 29-year-old male who had a 50 pound drop from the top of his right foot, causing him to have pain where he could not ambulate or stand any further, so recommend he come to the emergency room for further evaluation. Examination showed a small blister to the dorsum of his right lateral foot, but otherwise no breakdown in the integument, peripheral pulses +2/4 with normal cap refill, and no tenderness to palpation to the Achilles, medial lateral malleoli, lower legs, knees or hips bilaterally and no tenderness to palpation of the left foot, but there was tenderness to palpation of the dorsum of the right foot, so x- rays of the right foot were performed. Patient was also given a shot of IM morphine to help with pain control while waiting for results of his x-rays. X- rays of the right foot were interpreted as negative for any fractures, dislocation, or soft tissue swelling per emergency department physician interpretation. Patient was given a postop shoe help take stress off the foot keep patient mobile. Patient had local treatment to the blister of his right foot including putting a nonstick dressing with gauze wrap top take the friction off of that area and had a Tdap booster here in the emergency department also. He will be sent home with prescription for Lodine for pain to use twice daily, and a short supply of [employer] for breakthrough pain for the next 3 days since it is the weekend. We will notify the patient if radiology interprets anything di fferent from my initial interpretation and adjust his management accordingly. Patient be referred to podiatry to follow-up within the next 3 to 5 days he still has pain and he was given a work skews also. Patient is to follow-up in the nearest emergency room if he has any fever, new redness or swelling to his foot, new difficulty breathing, new pleuritic type chest pain or any other concerning signs or symptoms that were not present at today's emergency room visit for immediate reevaluation in the nearest emergency department. Counseled pt/family regarding: diagnosis, need for follow-up, rad results Medical Desision Making - Diagnostic Testing Diagnostic test were ordered, analyzed, and reviewed by me: Yes Radiological Interpretation: Interpreted by me, Reviewed by me - Risk of complications Low Risk: Low risk of morbidity from additional dx testing or treatment The pt has a mod risk of morbidity or mortality based on: Need for prescription drug management - Departure Departure Disposition: Home Clinical Impression: Contusion of right foot, initial encounter, Blister (nonthermal), right foot, initial encounter Condition: Good Critical Care Time: No Referrals: LOULUO ROBERSON [Primary Care Provider] - Follow Up with PCP/3 days ERNIE HAWK DPM [ACTIVE STAFF] - Follow Up with PCP/3 days (Foot and ankle surgeon/specialist for your reference if your foot continues to hurt) Instructions: Contusion (DC), Blisters Additional Instructions: Return back to the nearest emergency department for any new breakdown your skin, any redness to your skin your foot, new loss sensation to your foot, new loss of strength, new swelling to your leg, new difficulty breathing, new pain on taking deep breaths or any other concerning signs or symptoms that were not present at today's emergency room visit for immediate reevaluation in the nearest emergency department Forms: Work/School Release Form Prescriptions: Hydrocodone/Acetaminophen [Hydrocodone-Acetamin 5-325 mg] 1 tab PO Q6HPRN PRN #10 tablet MDD 4 PRN Reason: Pain Etodolac 400 mg [Lodine 400 mg] 400 mg PO BID PRN PRN #20 tablet PRN Reason: Pain
[2024-11-20] MEDS ORDERED: MORPHINE SULFATE 4 MG INJ ONE (07:57)
[2024-11-20] MEDS ORDERED: Adacel Vial IM ONE (07:57)
[2024-11-20] MEDS: MORPHINE SULFATE 4 MG INJ IM ONE (07:59)
[2024-11-20] MEDS: Adacel Vial IM ONE (07:59)
[2024-11-20 08:46] VITALS: BP 137/94; PULSE 72
--- NOTE | 2024-11-20 09:21 | XRAY ---
Indication: Trauma. Comparison: June 08, 2020 3 nonweightbearing views right foot demonstrates new small plantar heel spur. No other bony, articular, or soft tissue abnormalities.
== END 2024-11-20 08:47 | disposition home or self-care (01) ==
LOC: ED 07:34
DX: S90.31XA Contusion of right foot, initial encounter (principal); S90.821A Blister (nonthermal), right foot, initial encounter; W20.8XXA Other cause of strike by thrown, projected or falling object, initial encounter; Y92.148 Other place in prison as the place of occurrence of the external cause; Y99.0 Civilian activity done for income or pay; I10 Essential (primary) hypertension; Z79.85 Long-term (current) use of injectable non-insulin antidiabetic drugs; Z79.899 Other long term (current) drug therapy; Z23 Encounter for immunization
CPT/HCPCS: 73630; 90471; 90715; 96372; 99284; J2270